=== PATIENT | male | born 1955 | race Caucasian/White ===

== ENCOUNTER 2021-12-15 23:24 | Inpatient (IN) | payer MEDICARE, SELFPAY ==
--- NOTE | 2021-12-15 23:28 | XRR_ITS ---
PROCEDURE INFORMATION: Exam: XR Chest Exam date and time: 12/15/2021 11:43 PM Age: 66 years old Clinical indication: Sternal or substernal pain; Additional info: Cp TECHNIQUE: Imaging protocol: XR of the chest. Views: 1 view. COMPARISON: No relevant prior studies available. FINDINGS: Lungs: Bibasilar atelectasis versus minimal infiltrate. Pleural spaces: Unremarkable. No pleural effusion. No pneumothorax. Heart/Mediastinum: Mild cardiomegaly. Bones/joints: Unremarkable. XR/XR chest 1V portable [id number] IMPRESSION: 1. Mild cardiomegaly. 2. Bibasilar atelectasis versus minimal infiltrate.
--- NOTE | 2021-12-15 23:28 | ECG_ITS ---
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 Measurements Intervals [place] Rate: 84 P: 37 ND: 181 QRS: -1 QRSD: 102 T: 21 QT: 365 QTc: 434 Interpretive Statements SINUS RHYTHM MODERATE VOLTAGE CRITERIA FOR LVH, CONSIDER NORMAL VARIANT [MEETS CRITERIA IN ONE OF: R(aVL), S(V1), R(V5), R(V5/V6)+S(V1)] NONSPECIFIC T-WAVE ABNORMALITY No previous ECG available for comparison Electronically Signed On 12-16-2021 22:49:02 CDT by Juventino Lowery M.D. [id number]
--- NOTE | 2021-12-15 23:35 | CTR_ITS ---
PROCEDURE INFORMATION: Exam: CTA Chest With Contrast Exam date and time: 12/16/2021 12:45 AM Age: 66 years old Clinical indication: Abdominal pain; Sternal or substernal pain; Patient HX: C/O sudden onset substernal/epigastric pain; Additional info: Cp TECHNIQUE: Imaging protocol: Computed tomographic angiography of the chest with contrast. 3D rendering (Not supervised by radiologist): MIP and/or 3D reconstructed images were created by the technologist. Radiation optimization: All CT scans at this facility use at least one of these dose optimization techniques: automated exposure control; mA and/or kV adjustment per patient size (includes targeted exams where dose is matched to clinical indication); or iterative reconstruction. Contrast material: OMNI 350; Contrast volume: 95 ml; Contrast route: INTRAVENOUS (IV); COMPARISON: CR (CHEST, ) 12/15/2021 11:43 PM RADIATION DOSE METRICS: Total DLP (mGy-cm): 1646.57 FINDINGS: Pulmonary arteries: Normal. No pulmonary emboli. Aorta: Unremarkable. No aortic aneurysm. No aortic dissection. Lungs: Emphysematous changes. Bilateral dependent atelectasis. Pleural spaces: Unremarkable. No pneumothorax. No pleural effusion. Heart: Cardiomegaly. Coronary artery atherosclerotic calcifications. Lymph nodes: Scattered prominent mediastinal lymph nodes measuring up to 10 mm, nonspecific. Bones/joints: T8 vertebral body which shaped compression fracture without retropulsion of bony fragments, age indeterminate. Soft tissues: Unremarkable. PROCEDURE INFORMATION: Exam: CT Abdomen And Pelvis With Contrast Exam date and time: 12/16/2021 12:45 AM Age: 66 years old Clinical indication: Abdominal pain; Sternal or substernal pain; Patient HX: C/O sudden onset substernal/epigastric pain; Additional info: Cp TECHNIQUE: Imaging protocol: Computed tomography of the abdomen and pelvis with contrast. Radiation optimization: All CT scans at this facility use at least one of these dose optimization techniques: automated exposure control; mA and/or kV adjustment per patient size (includes targeted exams where dose is matched to clinical indication); or iterative reconstruction. Contrast material: OMNI 350; Contrast volume: 95 ml; Contrast route: INTRAVENOUS (IV); COMPARISON: CR (CHEST, ) 12/15/2021 11:43 PM RADIATION DOSE METRICS: Total DLP (mGy-cm): 1646.57 FINDINGS: Liver: Normal. No mass. Gallbladder and bile ducts: Normal. No calcified stones. No ductal dilation. Pancreas: Edema about the pancreatic head and duodenum suggestive of pancreatitis and/or duodenitis. Spleen: Normal. No splenomegaly. Adrenal glands: Normal. No mass. Kidneys and ureters: Bilateral renal cysts, negative for follow-up advised. Stomach and bowel: See Pancreas finding. Appendix: No evidence of appendicitis. Intraperitoneal space: Unremarkable. No free air. No significant fluid collection. Arteries: Unremarkable. No abdominal aortic aneurysm. Lymph nodes: Unremarkable. No enlarged lymph nodes. Urinary bladder: Unremarkable as visualized. Reproductive: Unremarkable as visualized. Bones/joints: Unremarkable. No acute fracture. Soft tissues: Left inguinal hernia containing omentum without bowel. CT/CT angio chest w abd pel w con IMPRESSION: 1. Scattered prominent mediastinal lymph nodes measuring up to 10 mm, nonspecific. 2. Cardiomegaly. 3. Emphysematous changes. 4. Bilateral dependent atelectasis. 5. T8 vertebral body which shaped compression fracture without retropulsion of bony fragments, age indeterminate. 6. Coronary artery atherosclerotic calcifications. IMPRESSION: 1. Edema about the pancreatic head and duodenum suggestive of pancreatitis and/or duodenitis. 2. Left inguinal hernia containing omentum without bowel. 3. Bilateral renal cysts, negative for follow-up advised.
--- NOTE | 2021-12-15 23:37 | ED_ITS ---
HPI - Chest Pain General: Chief Complaint: Chest Pain Stated Complaint: CP Time Seen by Provider: 12/15/21 23:29 Source: patient Mode of arrival: ambulatory Limitations: no limitations History of Present Illness: 66-year-old male who states that roughly 3 hours ago he started having severe sharp lower chest pain and abdominal pain. States he got of severe sharp pain in his upper abdomen that radiates to his chest and his back. States pain is currently an 8 out of 10. Denies any shortness of breath no nausea. Denies any history of heart disease or stomach issues. He has not a heavy drinker. Denies ever having pain like this in the past does have a family history of heart disease. Denies any diaphoresis he is currently in pain grabbing his upper abdomen Associated symptoms: Reports abdominal pain and nausea; Deny dyspnea or fever(s) Review of Systems Const: Denies: fever(s), chills, body aches or change in appetite Eyes: Denies: blurry vision or eye discomfort ENMT: Denies: throat pain or dental pain Card: Reports: chest pain Resp: Denies: dyspnea GI: Reports: abdominal pain and nausea : Denies: dysuria Musc: Denies: neck pain or back pain Skin/Breast: Denies: rash Neuro: Denies: headache(s) Psych: Denies: depression Jatinder/Lymph: Denies: easy bruising All/Imm: Denies: urticaria PFSH ED PFSH: Medical History (Updated 12/16/21 @ 01:49 by Josh Shen MD) No pertinent past medical history Family History Father CAD (coronary artery disease) Social History (Updated 12/15/21 @ 23:38 by Josh Shen MD) Smoking and tobacco status: never smoked Physical Exam Const: COMMON NORMALS: patient oriented x3 GENERAL APPEARANCE: in distress HENMT: COMMON NORMALS: normocephalic and atraumatic HEAD & SCALP: norm ocephalic and atraumatic Eye: COMMON NORMALS: Equal, round and reactive pupils present and EOMs intact bilaterally PUPIL: Yes Equal, round and reactive pupils present Neck/C-Spine: COMMON NORMALS: full ROM and supple Chest: COMMONS NORMALS: normal inspection of the chest and normal palpation of entire chest wall Resp: COMMON NORMALS: normal respiratory effort, No retractions, No use of accessory muscles and clear to auscultation bilaterally AUSCULTATION: clear to auscultation bilaterally Cardio: COMMON NORMALS: regular rate, regular rhythm and No murmurs present (Cardio) RATE: regular rate RHYTHM: regular rhythm GI: COMMON NORMALS: Normal to inspection, nondistended, normoactive bowel sounds present, Soft to palpation and no masses PALPATION: Yes Soft to palpation OTHER: epigastric tenderness Extremity: COMMON NORMALS: normal to inspection and full ROM Neuro: COMMON NORMALS: patient oriented x3, moves all extremities and no focal motor deficits Psych: COMMON NORMALS: mental status grossly normal, Normal thought process present and cooperative THOUGHT PROCESS: Normal thought process present Skin: COMMON NORMALS: no rashes or lesions noted and no wounds GENERAL SKIN EXAM: no rashes or lesions noted Course Vital Signs: Vital signs: Vital Signs Pulse Rate 83 12/16/21 01:19 Respiratory Rate 17 12/16/21 01:19 Blood Pressure 142/83 12/16/21 01:19 Pulse Oximetry 96 12/16/21 01:19 MDM - Chest Pain Medical Decision Making Patient presents here with abdominal pain is found to have pancreatitis CT scan otherwise normal liver enzymes are normal spoke to hospitalist will admit. Lab Data : 12/15/21 23:55 12/16/21 00:30 Radiology Impressions Chest X-Ray 12/15/21 23:28 IMPRESSION: 1. Mild cardiomegaly. 2. Bibasilar atelectasis versus minimal infiltrate. Chest/Abdomen/Pelvis CT 12/15/21 23:35 IMPRESSION: 1. Scattered prominent mediastinal lymph nodes measuring up to 10 mm, nonspecific. 2. Cardiomegaly. 3. Emphysematous changes. 4. Bilateral dependent atelectasis. 5. T8 vertebral body which shaped compression fracture without retropulsion of bony fragments, age indeterminate. 6. Coronary artery atherosclerotic calcifications. IMPRESSION: 1. Edema about the pancreatic head and duodenum suggestive of pancreatitis and/or duodenitis. 2. Left inguinal hernia containing omentum without bowel. 3. Bilateral renal cysts, negative for follow-up advised. Laboratory Results WBC 13.4 10^3/uL (4.0-10.0) H 12/15/21 23:55 RBC 5.19 10^6/uL (4.1-5.3) 12/15/21 23:55 Hgb 16.3 g/dL (11.7-16.6) 12/15/21 23:55 Hct 49.5 % (42.0-52.0) 12/15/21 23:55 MCV 95.4 fl (80-94) H 12/15/21 23:55 MCH 31.4 pg (28.0-34.0) 12/15/21 23:55 MCHC 32.9 g/dL (30.0-36.0) 12/15/21 23: RDW 13.0 % (12.1-15.1) 12/15/21 23: Plt Count 158 10^3/cmm (130-400) 12/15/21 23: MPV 10.3 fL (7.4-10.4) 12/15/21 23:55 Neut % (Auto) 84.5 % 12/15/21 23: Lymph % (Auto) 6.0 % 12/15/21 23:55 Buchanan % (Auto) 9.0 % 12/15/21 23: Eos % (Auto) 0.0 % 12/15/21 23: Baso % (Auto) 0.1 % 12/15/21 23: Neut # (Auto) 11.33 10^3/uL (1.8-7.7) H 12/15/21 23:55 Lymph # (Auto) 0.8 10^3/uL (0.8-4.8) 12/15/21 23:55 [place]anan # (Auto) 1.2 10^3/uL (0.2-0.9) H 12/15/21 23:55 Eos # (Auto) 0.0 10^3/uL (0.0-0.8) 12/15/21 23: Baso # (Auto) 0.0 10^3/uL (0.0-0.1) 12/15/21 23:55 Nucleated RBC % (auto) 0 % 12/15/21 23: Nucleated RBCs # 0.0 /100WBC 12/15/21 23: PT 14.20 SECONDS (12.1-14.9) 12/15/21 23:55 INR 1.07 (0.8-1.2) 12/15/21 23:55 Sodium 136 mmol/L (136-145) 12/16/21 00:30 Potassium 3.9 mmol/L (3.5-5.1) 12/16/21 00:30 Chloride 101 mmol/L (98-107) 12/16/21 00:30 Carbon Dioxide 23 mmol/L (22-29) 12/16/21 00:30 Anion Gap 15.9 (5-19) 12/16/21 00:30 BUN 19 mg/dL (8-23) 12/16/21 00:30 Creatinine 0.7 mg/dL (0.7-1.2) 12/16/21 00:30 GFR Calculation 113.2 mL/min (90-130) 12/16/21 00:30 Glucose 160 mg/dL (65-115) H 12/16/21 00:30 Calculated Osmolality 288 mOsm/kg (285-295) 12/16/21 00:30 Calcium 8.9 mg/dL (8.5-10.5) 12/16/21 00:30 Total Bilirubin 2.0 mg/dL (0.15-1.2) H 12/16/21 00:30 AST 246 U/L (0-40) H 12/16/21 00:30 ALT 277 U/L (0-41) H 12/16/21 00:30 Alkaline Phosphatase 87 IU/L (40-130) 12/16/21 00:30 Troponin T Baseline 11 ng/L (0-15) 12/16/21 00:30 Total Protein 7.0 g/dL (6.6-8.7) 12/16/21 00:30 Albumin 4.1 g/dL (3.5-5.2) 12/16/21 00:30 Globulin 2.9 g/dL (1.3-4.6) 12/16/21 00:30 Lipase Cancelled 12/15/21 23:55 EKG Data EKG 1: I personally reviewed and interpreted this EKG as follows: EKG interpretation date: 12/15/21 EKG interpretation time: 23:34 Interpretation: nsr hr [address] or t wave abnormalities qrs 102 qtc 406 Discharge Plan Discharge Patient Disposition: Admitted As Inpatient Clinical Impression: Acute pancreatitis Coding Level of Care Code ED Resin Filterer for Chg Fwd Exam Comprehensive
[2021-12-16] VITALS (16 sets, daily range): BP systolic 123–147; BP diastolic 72–94; PULSE 65–93; RESP 15–28; TEMP 36.7–38.1; O2SAT 91–98; BMI 31.5; BMI 27.6
[2021-12-16 00:03] LABS: Basophils % 0.1 %; Hematocrit 49.5 % (42.0-52.0); Hemoglobin 16.3 g/dL (11.7-16.6); Lymphocytes # 0.8 10^3/uL (0.8-4.8); Mean Corpuscular HGB Conc 32.9 g/dL (30.0-36.0); Mean Corpuscular Hemoglobin 31.4 pg (28.0-34.0); Mean Corpuscular Volume 95.4 fl (80-94); Mean Platelet Volume 10.3 fL (7.4-10.4); Monocytes # 1.2 10^3/uL (0.2-0.9); Neutrophils # 11.33 10^3/uL (1.8-7.7); Neutrophils % 84.5 %; Nucleated Red Blood Cells % 0 %; Platelet Count 158 10^3/cmm (130-400); Red Blood Count 5.19 10^6/uL (4.1-5.3); White Blood Count 13.4 10^3/uL (4.0-10.0)
[2021-12-16] MEDS: ondansetron 2 mg/ML SDV 2 mL 4 MG IVP (00:10)
[2021-12-16] MEDS: HYDROmorphone 1 mg/mL INJ 1 mL IVP (00:12)
[2021-12-16 00:13] LABS: INR 1.07 (0.8-1.2)
--- NOTE | 2021-12-16 00:20 | PC.NURSE ---
color television console monitor on patient.
--- NOTE | 2021-12-16 00:44 | PC.NURSE ---
Patient states that pain medication helped, he states he has no pain at this time.
[2021-12-16] MEDS: iohexol 350 mg/mL 100 mL Btl IV (00:45)
[2021-12-16 01:01] LABS: Alanine Aminotransferase 277 U/L (0-41); Albumin Level 4.1 g/dL (3.5-5.2); Alkaline Phosphatase 87 IU/L (40-130); Anion Gap 15.9 (5-19); Aspartate Amino Transferase 246 U/L (0-40); Blood Urea Nitrogen 19 mg/dL (8-23); Calcium 8.9 mg/dL (8.5-10.5); Carbon Dioxide 23 mmol/L (22-29); Chloride 101 mmol/L (98-107); Globulin 2.9 g/dL (1.3-4.6); Glomerular Filtration Rate 113.2 mL/min (90-130); Glucose 160 mg/dL (65-115); Osmolality Calculated 288 mOsm/kg (285-295); Potassium 3.9 mmol/L (3.5-5.1); Sodium 136 mmol/L (136-145)
[2021-12-16 01:02] LABS: Troponin(5th) Baseline 11 ng/L (0-15)
--- NOTE | 2021-12-16 01:28 | ECG_ITS ---
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 Measurements Intervals [place] Rate: 83 P: 44 SC: 178 QRS: -3 QRSD: 99 T: 29 QT: 361 QTc: 426 Interpretive Statements SINUS RHYTHM NONSPECIFIC T-WAVE ABNORMALITY No previous ECG available for comparison Electronically Signed On 12-16-2021 23:04:57 CDT by Juventino Lowery M.D. [id number]
[2021-12-16] MEDS: sodium chloride 0.9% 1,000 ML 999 ML IV (02:06)
--- NOTE | 2021-12-16 02:10 | PM.HP ---
Providers/Chief Complaint Chief Complaint: CP History of Present Illness The patient is a [age]-year-old male who presents to [place] abdominal pain which started proximally 5 PM on December 15, 2021. He states it was of sudden onset in a bandlike area in his upper abdomen radiating to his back. He describes the pain as sharp. Since the time of onset's been constant. As worst rated 10 out of 10. Currently rates run out of 10 after receiving analgesia. He states he took aspirin at home which did not improve the pain. He states he has been exhibiting fever, rigors, nausea, vomiting. He denies frequent NSAID use. He states that his last bowel movement was on the morning of December 15, 2021. He denies melena, hematochezia, diarrhea, stat area. The patient indicates that he drinks 2 beers daily and indicates that it is never more than this. He presents for further evaluation Review of Systems General: Reports: 10 or more systems reviewed and unremarkable except in HPI and below PFSH Acute PFSH: Medical History No pertinent past medical history Family History Father CAD (coronary artery disease) Social History Smoking and tobacco status: never smoked Vitals/I&O/Wt Last Vital Signs Pulse 87 12/16/21 02:07 Resp 19 H 12/16/21 02:07 BP 136/82 12/16/21 02:07 Pulse Ox 93 12/16/21 02:07 Weight last 48 hrs Weight 99.79 kg Physical Exam Narrative: General: -Alert -No acute distress -No dyspnea -No tachypnea Head: -Atraumatic -Normocephalic Eyes: -Pupils equally round and reactive to light and accommodation -Extraocular muscles intact Neurological: -Cranial nerves II-XII intact Neck: -No jugular venous distention -No thyromegaly -No cervical lymphadenopathy Heart: -Regular rate -Regular rhythm -No murmurs -No gallops -No rubs Lungs: -No wheeze -No rhonchi -No rales ? Abdomen: -Normal bowel sounds in all four quadrants -No rebound -No guarding -No tenderness Extremities: -2/4 pulse in all four extremities -No clubbing -No cyanosis -No edema -No calf tenderness present bilaterally -Negative Karoline?s sign bilaterally Musculoskeletal: -5/5 bilateral upper extremity strength -5/5 bilateral lower extremity strength -Sensorium of bilateral upper extremities are equal and intact -Sensorium of bilateral lower extremities are equal and intact ? Additional Details / Additional Findings / Exceptions / Miscellaneous: Data : 12/15/21 23:55 12/16/21 00:30 A&P Assessment and plan (1) Acute pancreatitis: Status: Acute Plan Acute pancreatitis, likely alcohol induced however the patient denies abusing alcohol beyond 2 beers daily. Will monitor lipase level intermittently. Fasting lipid panel pending. Nothing by mouth. IV normal saline 100 ML's per hour Query alcohol abuse, likely at the very least alcohol overuse. Seizure precautions. The patient denies signs/symptoms of withdrawal, we will initiate [place] protocol/when necessary Ativan Mediastinal lymphadenopathy. Patient will require CT chest with IV contrast March 07, 2022 Transaminitis, likely alcohol induced. Will monitor LFTs periodically with CMP along with PT/INR. If we see no improvement, will need to check right upper quadrant ultrasound and perhaps hepatitis panel Macrocytosis. Check TSH, free T4, B12, folate level COPD Coronary artery disease GERD. Protonix 40 Mill grams IV twice a day Obesity. The patient becomes regarding lifestyle modification DVT Proflex is. Bilateral SCD Attestations Medical Necessity Statement*: Anticipate length of stay greater than 2 midnights for treatment of his pancreatitis Coding Level of Care Code Acute Neonatal Intensive Care Unit Nurse for Cb Dowd Diagnoses Acute pancreatitis K85.90
[2021-12-16 02:24] LABS: Troponin 5 2HR 11.61 ng/L (0-15)
[2021-12-16 02:26] LABS: Lipase 4798 U/L (13-60)
[2021-12-16] MEDS: pantoprazole 40 mg SDV IVP ×2 (03:11→14:20)
[2021-12-16] MEDS: sodium chloride 0.9% 1,000 ML 100 ML IV ×3 (03:30→22:58)
--- NOTE | 2021-12-16 05:28 | ECG_ITS ---
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 Measurements Intervals [place] Rate: 74 P: 24 [place]: 180 QRS: -8 QRSD: 96 T: 12 QT: 378 QTc: 422 Interpretive Statements SINUS RHYTHM MINIMAL VOLTAGE CRITERIA FOR LVH, CONSIDER NORMAL VARIANT [MEETS CRITERIA IN ONE OF: R(aVL), S(V1), R(V5), R(V5/V6)+S(V1)] NONSPECIFIC T-WAVE ABNORMALITY Compared to ECG 12/16/2021 01:30:47 No significant changes Electronically Signed On 12-16-2021 23:06:05 CDT by Juventino Lowery M.D. [id number]
[2021-12-16 07:05] LABS: Troponin 5 6HR 11.71 ng/L (0-15)
[2021-12-16 07:17] LABS: Troponin 5 6HR Delta 0.71 ng/L (0-12)
[2021-12-16 07:40] LABS: Chol HDL Ratio 2.89 mg/dL (1.0-5.00); Cholesterol 104 mg/dL (0-200); HDL Cholesterol 36 mg/dL (60-100); LDL Cholesterol Calculated 58 mg/dL (50-129); LDL HDL Ratio 1.61 RATIO (0.00-3.22); Triglycerides 50 mg/dL (0-150)
[2021-12-16 07:56] LABS: Folate Level 15.9 ng/mL (4.5-32.2)
[2021-12-16 08:06] LABS: Free T4 Free Thyroxine 1.17 ng/dL (0.82-1.77); Thyroid Stimulating Hormone 0.31 uIU/mL (0.27-4.20)
[2021-12-16 09:05] LABS: Vitamin B12 624 pg/mL (232-1245)
--- NOTE | 2021-12-16 12:13 | P.MISC_ITS ---
Miscellaneous Note Purpose of Documentation: Progress note Note: Patient seen this morning. Epigastric pain has improved, able to tolerate little sips of water. I will advance his diet to clear liquid and see how he does. Lipase 4798 on admission. Patient states he does drink alcohol 1- 2 beers a day but never binges. Cage: 0 Rest of management same as H&P document.
[2021-12-17] MEDS: pantoprazole 40 mg SDV IVP (03:15)
[2021-12-17 04:52] VITALS: BP 126/72; PULSE 67; RESP 18; TEMP 36.7; O2SAT 95
[2021-12-17 05:21] VITALS: PULSE 60
[2021-12-17 06:38] LABS: INR 1.12 (0.8-1.2)
[2021-12-17 06:43] LABS: Alanine Aminotransferase 212 U/L (0-41); Albumin Level 3.6 g/dL (3.5-5.2); Alkaline Phosphatase 102 IU/L (40-130); Anion Gap 9.4 (5-19); Aspartate Amino Transferase 82 U/L (0-40); Blood Urea Nitrogen 12 mg/dL (8-23); Calcium 8.7 mg/dL (8.5-10.5); Carbon Dioxide 26 mmol/L (22-29); Chloride 107 mmol/L (98-107); Globulin 2.2 g/dL (1.3-4.6); Glucose 105 mg/dL (65-115); Osmolality Calculated 286 mOsm/kg (285-295); Potassium 4.4 mmol/L (3.5-5.1); Sodium 138 mmol/L (136-145); Total Bilirubin 1.7 mg/dL (0.15-1.2); Total Protein 5.8 g/dL (6.6-8.7)
[2021-12-17 07:01] LABS: Lipase 1008 U/L (13-60)
[2021-12-17 08:00] VITALS: BP 150/79; PULSE 66; RESP 18; TEMP 37; O2SAT 95
[2021-12-17] MEDS: sodium chloride 0.9% 1,000 ML 100 ML IV (08:10)
[2021-12-17 12:00] VITALS: BP 128/68; PULSE 67; RESP 18; TEMP 36.6; O2SAT 96
--- NOTE | 2021-12-17 14:23 | P.DS_ITS ---
Discharge Providers Date of Admission: 12/16/21 02:06 Date of Discharge: December 17, 2021 Attending Provider at Admission: Cb Laird DO Attending Provider at Discharge: Layne Cooper MD Diagnoses at Discharge Discharge Diagnosis (1) Acute pancreatitis: Status: Acute Reason for Visit Reason for Visit: CP Brief History: HPI by Dr. Laird The patient is a [age]-year-old male who presents to [place] abdominal pain which started proximally 5 PM on December 15, 2021.? He states it was of sudden onset in a bandlike area in his upper abdomen radiating to his back.? He describes the pain as sharp.? Since the time of onset's been constant.? As worst rated 10 out of 10.? Currently rates run out of 10 after receiving analgesia.? He states he took aspirin at home which did not improve the pain.? He states he has been exhibiting fever, rigors, nausea, vomiting.? He denies frequent NSAID use.? He states that his last bowel movement was on the morning of December 15, 2021.? He denies melena, hematochezia, diarrhea, stat area.? The patient indicates that he drinks 2 beers daily and indicates that it is never more than this.? He presents for further evaluation Hospital Course Hospital Course Patient was admitted for acute pancreatitis likely biliary pancreatitis. No evidence of gallstones on CT scan. He does drink alcohol but occasionally. He was given IV fluids and improved. Was able to tolerate a diet prior to discharge. Patient bilirubin was 2 and had a slight transaminitis which was likely alcohol induced versus pancreatitis. He will need to follow-up with his primary care doctor. Physical Exam Narrative: General: Alert oriented x3, patient seen sitting up in chair HEENT: Normocephalic, atraumatic, EOMI, breathing normally Cardio: Regular rate rhythm, normal S1-S2, no murmurs Respiratory: Good bilateral air entry, no wheezes no rhonchi appreciated GI: Abdomen soft, nontender, nondistended, bowel sounds +, no epigastric pain nontender to palpation. Behavior: Appropriate and cooperative Extremities: no edema, no cyanosis Discharge Data Studies Completed and Pending Completed Studies During Hospitalization Category Date Time Status CT angio chest w abd pel w con Urgent Cat Scan 12/15/21 23:35 Completed XR chest 1V portable [id number] Stat Exams 12/15/21 23:28 Completed Radiology Impressions Chest X-Ray 12/15/21 23:28 IMPRESSION: 1. Mild cardiomegaly. 2. Bibasilar atelectasis versus minimal infiltrate. Chest/Abdomen/Pelvis CT 12/15/21 23:35 IMPRESSION: 1. Scattered prominent mediastinal lymph nodes measuring up to 10 mm, nonspecific. 2. Cardiomegaly. 3. Emphysematous changes. 4. Bilateral dependent atelectasis. 5. T8 vertebral body which shaped compression fracture without retropulsion of bony fragments, age indeterminate. 6. Coronary artery atherosclerotic calcifications. IMPRESSION: 1. Edema about the pancreatic head and duodenum suggestive of pancreatitis and/or duodenitis. 2. Left inguinal hernia containing omentum without bowel. 3. Bilateral renal cysts, negative for follow-up advised. Laboratory Results WBC 13.4 10^3/uL (4.0-10.0) H 12/15/21 23:55 RBC 5.19 10^6/uL (4.1-5.3) 12/15/21 23:55 Hgb 16.3 g/dL (11.7-16.6) 12/15/21 23:55 Hct 49.5 % (42.0-52.0) 12/15/21 23:55 MCV 95.4 fl (80-94) H 12/15/21 23:55 MCH 31.4 pg (28.0-34.0) 12/15/21 23:55 MCHC 32.9 g/dL (30.0-36.0) 12/15/21 23:55 RDW 13.0 % (12.1-15.1) 12/15/21 23:55 Plt Count 158 10^3/cmm (130-400) 12/15/21 23:55 MPV 10.3 fL (7.4-10.4) 12/15/21 23:55 Neut % (Auto) 84.5 % 12/15/21 23:55 Lymph % (Auto) 6.0 % 12/15/21 23:55 [place] % (Auto) 9.0 % 12/15/21 23:55 Eos % (Auto) 0.0 % 12/15/21 23:55 Baso % (Auto) 0.1 % 12/15/21 23:55 Neut # (Auto) 11.33 10^3/uL (1.8-7.7) H 12/15/21 23:55 Lymph # (Auto) 0.8 10^3/uL (0.8-4.8) 12/15/21 23:55 [place] # (Auto) 1.2 10^3/uL (0.2-0.9) H 12/15/21 23:55 Eos # (Auto) 0.0 10^3/uL (0.0-0.8) 12/15/21 23:55 Baso # (Auto) 0.0 10^3/uL (0.0-0.1) 12/15/21 23:55 Nucleated RBC % (auto) 0 % 12/15/21 23:55 Nucleated RBCs # 0.0 /100WBC 12/15/21 23:55 PT 14.70 SECONDS (12.1-14.9) 12/17/21 06:05 INR 1.12 (0.8-1.2) 12/17/21 06:05 Sodium 138 mmol/L (136-145) 12/17/21 06:05 Potassium 4.4 mmol/L (3.5-5.1) 12/17/21 06:05 Chloride 107 mmol/L (98-107) 12/17/21 06:05 Carbon Dioxide 26 mmol/L (22-29) 12/17/21 06:05 Anion Gap 9.4 (5-19) 12/17/21 06:05 BUN 12 mg/dL (8-23) 12/17/21 06:05 Creatinine 0.8 mg/dL (0.7-1.2) 12/17/21 06:05 GFR Calculation 97.0 mL/min (90-130) 12/17/21 06:05 Glucose 105 mg/dL (65-115) 12/17/21 06:05 Calculated Osmolality 286 mOsm/kg (285-295) 12/17/21 06:05 Calcium 8.7 mg/dL (8.5-10.5) 12/17/21 06:05 Total Bilirubin 1.7 mg/dL (0.15-1.2) H 12/17/21 06:05 AST 82 U/L (0-40) H 12/17/21 06:05 ALT 212 U/L (0-41) H 12/17/21 06:05 Alkaline Phosphatase 102 IU/L (40-130) 12/17/21 06:05 Troponin T Baseline 11 ng/L (0-15) 12/16/21 00:30 Troponin T 120 Minute 11.61 ng/L (0-15) 12/16/21 01:50 Delta Troponin T Not Reportable 12/16/21 01:50 Troponin T Hi Sens 6Hr 11.71 ng/L (0-15) 12/16/21 05:50 Troponin T Hi Sens 6Hr Delta 0.71 ng/L (0-12) 12/16/21 05:50 Total Protein 5.8 g/dL (6.6-8.7) L 12/17/21 06:05 Albumin 3.6 g/dL (3.5-5.2) 12/17/21 06:05 Globulin 2.2 g/dL (1.3-4.6) 12/17/21 06:05 Triglycerides 50 mg/dL (0-150) 12/16/21 05:50 Cholesterol 104 mg/dL (0-200) 12/16/21 05:50 LDL Cholesterol, Calc 58 mg/dL (50-129) 12/16/21 05:50 HDL Cholesterol 36 mg/dL (60-100) L 12/16/21 05:50 LDL/HDL Ratio 1.61 RATIO (0.00-3.22) 12/16/21 05:50 Cholesterol/HDL Ratio 2.89 mg/dL (1.0-5.00) 12/16/21 05:50 Lipase 1008 U/L (13-60) H 12/17/21 06:05 Vitamin B12 624 pg/mL (232-1245) 12/16/21 05:50 Folate 15.9 ng/mL (4.5-32.2) 12/16/21 06:42 TSH 0.31 uIU/mL (0.27-4.20) 12/16/21 05:50 Free T4 1.17 ng/dL (0.82-1.77) 12/16/21 05:50 Vitals Last Vital Signs Temp 97.8 F 12/17/21 12:00 Pulse 67 12/17/21 12:00 Resp 18 12/17/21 12:00 BP 128/68 12/17/21 12:00 Pulse Ox 96 12/17/21 12:00 Discharge Plan Discharge Patient Disposition: Home Condition: Stable Prescriptions: Continued aspirin 81 mg Tablet,Delayed Release (Dr/Ec) 81 mg PO QAM 0RF Vitamin C 500 mg Tablet 500 mg PO QAM 0RF omeprazole 20 mg capsule,delayed release(DR/EC) 20 mg PO QAM 0RF magnesium oxide 400 mg magnesium Tablet 400 mg PO QAM 0RF Vitamin D3 1 cap PO QAM 0RF Held EC-Naproxen 500 mg tablet,delayed release (DR/EC) 500 mg PO DAILY PRN (Reason: Pain) 0RF Hold Instructions: see pcp Discharge Orders: Discharge Order (Routine); Ordered 12/17/21 Ordered By: Layne Jones Ambulatory Orders: Comprehensive Metabolic Panel (Routine) Timeframe: 1 Day Facility: [facility] - Location: Lab - Main Lab Ordered By: Layne Cooper Lipase (Routine) Timeframe: 1 Week Facility: [facility] - Location: Lab - Main Lab Ordered By: Layne Cooper Referrals: Rosmery Villavicencio [Other] - 12/23/21 3:15 pm Discharge Diet: Advance as tolerated and GI Soft Discharge Activity: Increase activity as tolerated Patient Instructions: Pancreatitis (GEN), GI (Gastrointestinal) Soft Diet (GEN), Opioid Safety Discharge Attestations Time Spent in Discharge Care*: less than 30 min Quality Metrics Clinical Quality Measures [ No reported AMI, CVA or VTE this stay] Coding Level of Care Code Acute Chg FW DC note Diagnoses Acute pancreatitis K85.90
[2021-12-17 15:48] VITALS: BP 128/68; PULSE 67; RESP 18; TEMP 36.6; O2SAT 96
--- NOTE | 2021-12-27 14:37 | PC.SOCIAL ---
Addendum entered by Corinne Dao, RN 12/27/21 15:23: Masha returned call from Dr Villavicencio office and a lipase was done on 12/23/21 with the other labs ordered. Original Note: Called patient and spoke to and patient both. Discussed that Dr Cooper would like him to See Dr Jackson spine surgeon for T8 compression fx. Pt and are okay to see Dr Jackson and if he cant get him in soon okay with Dr Breaux at [facility]. Patient prefers around 9am. Called Dr Jackson office and they can see him 01/02/2022 at 8:30am. Called patient to update and he asked for time to be later that day or another day. Provided the number for office and encouraged him to leave message if no answer to request a date and time that might better fit his schedule. Sent dc information to Dr Jackson office per request and indicated on face sheet pt will be calling to change appt date and/ or time. Called Dr Rosmery Villavicencio office to check and see if labs were drawn including lipase and had to leave a message. Per pt he thinks all the labs were drawn since he was called by PCP office this week and told labs look good. Left message for PCP nurse requesting return call to verify.
== END 2021-12-17 15:49 | disposition home or self-care (01) | DRG 440 ==
LOC: ER 12-16 02:24 → MEDSURG 12-16 02:27
PROVIDERS: Admitting Provider Internal Medicine; Emergency Provider Emergency Medicine; Visit Provider Internal Medicine
DX: K85.10 Biliary acute pancreatitis without necrosis or infection (principal); Z82.49 Family history of ischemic heart disease and other diseases of the circulatory system; R59.0 Localized enlarged lymph nodes; J44.9 Chronic obstructive pulmonary disease, unspecified; I25.10 Atherosclerotic heart disease of native coronary artery without angina pectoris; K21.9 Gastro-esophageal reflux disease without esophagitis; E66.9 Obesity, unspecified; Z68.27 Body mass index [BMI] 27.0-27.9, adult; Z79.82 Long term (current) use of aspirin
CPT/HCPCS: 36415; 71045; 71275; 74177; 80053; 80061; 82607; 82746; 83690; 84439; 84443; 84484; 85025; 85610; 93005; 96361; 96374; 96375; 99285; C9113; J1170; J2405; J7030; Q9967

== ENCOUNTER → 2022-01-02 14:00 | Outpatient (BNVA) | payer MEDICARE, SELFPAY | PROVIDERS: PCP Family Medicine; Visit Provider Orthopaedic Surgery | DX: M48.54XS Collapsed vertebra, not elsewhere classified, thoracic region, sequela of fracture (principal); M40.204 Unspecified kyphosis, thoracic region; G95.29 Other cord compression | CPT/HCPCS: 72070; 99203 ==

== ENCOUNTER 2022-01-15 06:44 | Outpatient (CLI) | payer MEDICARE, SELFPAY ==
--- NOTE | 2022-01-15 | US_ITS ---
WS: [id number] RIGHT UPPER QUADRANT ULTRASOUND HISTORY: ACUTE PANCREATITIS COMPARISON: None available. Liver: 14.7 cm in length. Normal size liver with moderate coarse echotexture and increased attenuatio n. No mass identified or bile duct dilatation. Portal Vein: Normal hepatopetal flow with monophasic waveform. Gallbladder: Normally distended gallbladder with no stones or wall thickening. CBD: 0.4 cm Pancreas: Poorly visualized pancreas. No fluid or edema is noted around the pancreas. Right kidney: 12.8 cm in length. Normal size and echogenicity. No hydronephrosis or mass. Aorta and IVC: Unremarkable abdominal aorta and IVC. No ascites. US/US abdomen limited [id number] IMPRESSION: 1. Normal gallbladder. 2. Acute pancreatitis identified by CT is not evident by ultrasound but this e xamination is limited by body habitus. 3. Hepatic steatosis.
== END 2022-01-15 06:45 | disposition home or self-care (01) ==
LOC: RAD 06:46
PROVIDERS: PCP Family Medicine; Visit Provider Family Medicine
DX: K85.90 Acute pancreatitis without necrosis or infection, unspecified (principal); K76.0 Fatty (change of) liver, not elsewhere classified
CPT/HCPCS: 76705

== ENCOUNTER 2023-01-26 07:54 | Outpatient (CLI) | payer MEDICARE, SELFPAY ==
--- NOTE | 2023-01-26 08:14 | XR_ITS ---
WS: [id number] Lumbar spine, 3 views, 01/26/2023 Clinical Data: LUMBAGO W/sciatica, l SIDE Comparison: None. Findings: No compression fractures or subluxation is seen. There is degenerative disc narrowing at L5-S1. There are osteophytes of the vertebral bodies L3-L5. There is facet joint arthritis at L5-S1. There is a l evoscoliosis. The transverse processes and SI joints are normal. XR/XR lumbar spine 2-3V* [id number] Impression: 1. Degenerative disc narrowing at L5-S1. 2. Osteoarthritis at L3-L5, levoscoliosis and facet joint arthritis at L5-S1.
== END 2023-01-26 07:55 | disposition home or self-care (01) ==
LOC: RAD 08:01
PROVIDERS: PCP Family Medicine; Visit Provider Family Medicine
DX: M51.17 Intervertebral disc disorders with radiculopathy, lumbosacral region (principal); M47.817 Spondylosis without myelopathy or radiculopathy, lumbosacral region
CPT/HCPCS: 72100

== ENCOUNTER → 2024-09-23 11:00 | Outpatient (BNVA) | payer MEDICARE, SELFPAY | PROVIDERS: PCP Family Medicine; Visit Provider Family Medicine | DX: R03.0 Elevated blood-pressure reading, without diagnosis of hypertension (principal); E78.6 Lipoprotein deficiency; K21.9 Gastro-esophageal reflux disease without esophagitis; M54.42 Lumbago with sciatica, left side; G89.29 Other chronic pain; Z87.81 Personal history of (healed) traumatic fracture; K85.90 Acute pancreatitis without necrosis or infection, unspecified; R73.01 Impaired fasting glucose; M15.3 Secondary multiple arthritis; Z76.89 Persons encountering health services in other specified circumstances | CPT/HCPCS: 80053; 80061; 83036; 85025 ==

== ENCOUNTER 2025-02-07 17:17 | Inpatient (IN) | payer MEDICARE, SELFPAY ==
[2025-02-07 17:40] VITALS: BP 136/79; PULSE 72; TEMP 36.4; O2SAT 95
--- NOTE | 2025-02-07 18:44 | W.ED.ABDPA2 ---
HPI - Abdominal Pain General: Chief Complaint: Abdominal Pain Stated Complaint: abd and back pain, n/v/d/f Time Seen by Provider: 02/07/25 18:36 History of Present Illness: 69-year-old man with a history of pancreatitis in the past who presents emergency room with abdominal pain nausea and vomiting. Epigastric pain. Started yesterday. He says he only drinks a small amount just a few beers here and there. Presentation similar to previous episodes of pancreatitis. No fevers. No altered mental status. No dysuria. Related Data Home Medications ?Medication ?Instructions ?Recorded ?Confirmed Vitamin D3 1 cap PO QAM 12/16/21 02/07/25 ascorbic acid (vitamin C) 500 mg 500 mg PO QAM 12/16/21 02/07/25 tablet (Vitamin C) aspirin 81 mg tablet,delayed 81 mg PO QAM 12/16/21 02/07/25 release magnesium oxide 400 mg PO QAM 12/16/21 02/07/25 Previous Rx's ?Medication ?Instructions ?Recorded naproxen 500 mg tablet,delayed 500 mg PO BID PRN Pain #180 tabs 09/23/24 release (EC-Naproxen) omeprazole 20 mg capsule,delayed 20 mg PO QAM #90 caps 09/23/24 release Allergies Allergy/AdvReac Type Severity Reaction Status Date / Time No Known Allergies Allergy Verified 02/07/25 17:44 Review of Systems Narrative: Constitutional symptoms: Negative except as documented in HPI. Skin symptoms: Negative except as documented in HPI. Eye symptoms: Negative except as documented in HPI. ENMT symptoms: Negative except as documented in HPI. Respiratory symptoms: Negative except as documented in HPI. Cardiovascular symptoms: Negative except as documented in HPI. Gastrointestinal symptoms: Negative except as documented in HPI. Genitourinary symptoms: Negative except as documented in HPI. Musculoskeletal symptoms: Negative except as documented in HPI. Neurologic symptoms: Negative except as documented in HPI. Psychiatric symptoms: Negative except as documented in HPI. Endocrine symptoms: Negative except as documented in HPI. [facility] PFSH: Medical History Asymptomatic PVCs Varicose veins of both legs with edema Metabolic dysfunction-associated steatotic liver disease (MASLD) Fasting hyperglycemia Chronic thoracic back pain old T8 compressioin fx Cervical spondylarthritis Hx of compression fracture of spine T8 on imaging Low HDL (under 40) Elevated blood pressure reading without diagnosis of hypertension Osteoarthritis (arthritis due to wear and tear of joints) Chronic low back pain with left-sided sciatica Chronic GERD without esophagitis No pertinent past medical history Surgical History Hx of esophagogastroduodenoscopy 4.1.19 Hx of colonoscopy 5.7.18 at [facility] Family History Father CAD (coronary artery disease) Cancer Melanoma Mother No problems noted. Social History Smoking and tobacco/nicotine status: never used tobacco/nicotine Alcohol intake: current Alcohol intake frequency: 0-2 Drinks per Day Alcohol type: beer Substance/Drug Use: never Household members: spouse Marital status: Number of children: 3 Highest education level completed: High School Graduate Current occupational status: retired Previous occupational history: [employer] Physical Exam Narrative: EXAM NARRATIVE: General: Alert, no acute distress. Skin: Warm, dry. Head: Normocephalic, atraumatic. Neck: Supple, trachea midline. Eye: Extraocular movements are intact. Ears, nose, mouth and throat: Tacky oral mucosa Cardiovascular: Regular, Normal peripheral perfusion. Respiratory: Lungs are clear to auscultation, respirations are non-labored, breath sounds are equal, Symmetrical chest wall expansion. Gastrointestinal: Soft, moderate epigastric pain, Non distended Musculoskeletal: Normal ROM, no deformity. Neurological: Alert and oriented, No focal neurological deficit observed. Psychiatric: Cooperative, appropriate mood & affect. Course Vital Signs: Vital signs: Vital Signs Temperature 97.6 F 02/07/25 17:40 Pulse Rate 84 02/07/25 21:00 Respiratory Rate 16 02/07/25 21:00 Blood Pressure 109/61 02/07/25 21:00 Pulse Oximetry 96 02/07/25 21:00 Oxygen Delivery Me thod Nasal Cannula 02/07/25 21:00 Oxygen Flow Rate 2 02/07/25 21:00 MDM - Abdominal Pain Medical Decision Making Medical decision making: Differential diagnosis including but not limited to and based on the above HPI, review of systems and physical exam: In this patient with epigastric pain differential would include cholelithiasis or cholecystitis. Hepatitis. Diverticulitis. Constipation. UTI. colitis. small bowel obstruction. crohn's flare. pancreatitis. gastritis. peptic ulcer. also concern for acute cardiac event. Orders placed to evaluate differential diagnosis based on the above differential, HPI and physical exam Lab Review: Laboratory results were reviewed and interpreted by myself the emergency room physician. No leukocytosis. Mild hemophilia. Hemoglobin 17. No leukocytosis. Mild elevation in bilirubin at 1.8 and LFTs at around 130 each. He had similar laboratory presentations on presentation in 2021. There is some fluid around the gallbladder. No stones. I spoke with surgery and they feel that this is often present in edematous pancreatitis. Hospitalist can order a ultrasound if necessary and consult general surgery if needed. This was reviewed and interpreted by myself the emergency room physician. I also reviewed the radiology report. I reviewed the patient's medical record. Reexamination: Patient remained stable. No increased work of breathing. No altered mental status. No focal motor deficits. Patient said Dilaudid worked for a while but is requesting more. This is being ordered. I discussed findings. Consultation: I discussed radiologic findings with Dr. Tam on-call for general surgery. He feels this is appropriate for admission here and if he needs consulted he will be but currently no indication for general surgery consultation. Consultation I spoke with Dr. Connors who is on-call for the hospitalist service who agrees to admission. Assessment and plan: Pancreatitis Dehydration ?Multiple doses of Dilaudid. Zofran. 2 L normal saline bolus. -I discussed the patient with the hospitalist on-call who is admitting the patient. - Discussed findings and plan with patient. Answered any questions. - All laboratory values were reviewed and interpreted personally by myself, the ER physician - All imaging was reviewed and interpreted personally by myself, the ER physician. - Evaluation and treatment of this problem were appropriate in the emergency setting Lab Data 02/07/25 18:43 02/07/25 18:43 Labs/Radiology: Radiology Impressions Abdomen/Pelvis CT 02/07/25 19:19 IMPRESSION: 1. Exam demonstrates features of acute edematous pancreatitis. No evidence of pancreatic hemorrhage or necrosis. No biliary tree dilation. 2. There is gallbladder inflammatory change without biliary tree dilation or high-density stone. Findings could be passive in the setting of pancreatitis, but the pancreatic edema is not geographically contiguous with the gallbladder. Consider ultrasound to evaluate for underlying cholelithiasis and possible cholecystitis. 3. Fatty liver without enlargement. Spleen is normal in size. 4. Spinal stenosis at L3-L4 and L4-L5. Neural foraminal stenosis is noted bilaterally at L4-L5 and L5-S1. Correlate with symptoms of neurogenic claudication and/or radiculopathy. Laboratory Results WBC 9.83 10^3/uL (3.29-11.43) 02/07/25 18:43 RBC 5.45 10^6/uL (3.85-5.65) 02/07/25 18:43 Hgb 17.30 g/dL (11.27-16.99) H 02/07/25 18:43 Hct 52.3 % (37-53) 02/07/25 18:43 MCV 96.0 fl (82-101) 02/07/25 18:43 MCH 31.7 pg (27-33) 02/07/25 18:43 MCHC 33.1 g/dL (30-55) 02/07/25 18:43 RDW 12.8 % (12.1-15.1) 02/07/25 18:43 Plt Count 150 10^3/cmm (157-399) L 02/07/25 18:43 MPV 10.4 fL (7.4-10.4) 02/07/25 18:43 Neut % (Auto) 91.0 % 02/07/25 18:43 Lymph % (Auto) 7.1 % 02/07/25 18:43 [place] % (Auto) 1.2 % 02/07/25 18:43 Eos % (Auto) 0.2 % 02/07/25 18:43 Baso % (Auto) 0.3 % 02/07/25 18:43 Neut # (Auto) 8.94 10^3/uL (1.8-7.7) H 02/07/25 18:43 Lymph # (Auto) 0.7 10^3/uL (0.8-4.8) L 02/07/25 18:43 [place] # (Auto) 0.1 10^3/uL (0.2-0.9) L 02/07/25 18:43 Eos # (Auto) 0.0 10^3/uL (0.0-0.8) 02/07/25 18:43 Baso # (Auto) 0.0 10^3/uL (0.0-0.1) 02/07/25 18:43 Nucleated RBC % (auto) 0 % 02/07/25 18:43 Nucleated RBCs # 0.0 /100WBC 02/07/25 18:43 Sodium 137 mmol/L (136-145) 02/07/25 18:43 Potassium 4.6 mmol/L (3.5-5.1) 02/07/25 18:43 Chloride 101 mmol/L (98-107) 02/07/25 18:43 Carbon Dioxide 23 mmol/L (22-29) 02/07/25 18:43 Anion Gap 17.6 (5-19) 02/07/25 18:43 BUN 15 mg/dL (8-23) 02/07/25 18:43 Creatinine 1.0 mg/dL (0.7-1.2) 02/07/25 18:43 GFR Calculation 74.3 mL/min (90-130) L 02/07/25 18:43 Glucose 145 mg/dL (65-115) H 02/07/25 18:43 Calculated Osmolality 287 mOsm/kg (285-295) 02/07/25 18:43 Lactic Acid 2.0 mmol/L (0.5-2.2) 02/07/25 18:43 Calcium 9.2 mg/dL (8.5-10.5) 02/07/25 18:43 Total Bilirubin 1.8 mg/dL (0.15-1.2) H 02/07/25 18:43 AST 120 U/L (0-40) H 02/07/25 18:43 ALT 138 U/L (0-41) H 02/07/25 18:43 Alkaline Phosphatase 76 U/L (40-130) 02/07/25 18:43 Total Protein 7.2 g/dL (6.6-8.7) 02/07/25 18:43 Albumin 4.3 g/dL (3.5-5.2) 02/07/25 18:43 Globulin 2.9 g/dL (1.3-4.6) 02/07/25 18:43 Lipase 5782 U/L (13-60) H 02/07/25 18:43 Urine Color Dark yellow (Yellow) A 02/07/25 18:42 Urine Appearance Clear (CLEAR) 02/07/25 18:42 Urine pH 6.0 (5-7) 02/07/25 18:42 Ur Specific [place] 1.020 (1.005-1.030) 02/07/25 18:42 Urine Protein 1+ (Negative) A 02/07/25 18:42 Urine Glucose (UA) Negative (Normal) 02/07/25 18:42 Urine Ketones Negative (Negative) 02/07/25 18:42 Urine Blood 1+ (Negative) A 02/07/25 18:42 Urine Nitrate Negative (Negative) 02/07/25 18:42 Urine Bilirubin 1+ (Negative) H 02/07/25 18:42 Urine Urobilinogen 1.0 mg/dL (Negative) 02/07/25 18:42 Ur Leukocyte Esterase Negative (Negative) 02/07/25 18:42 Urine RBC 11-20 /hpf (0-2) H 02/07/25 18:42 Urine WBC 0-5 /hpf (0-5) 02/07/25 18:42 Ur Squamous Epith Cells 0-5 /hpf (0-5) 02/07/25 18:42 Amorphous Sediment Not Reportable 02/07/25 18:42 Urine Bacteria None seen /hpf (NONE) 02/07/25 18:42 Hyaline Casts 4.52 /lpf 02/07/25 18:42 Urine Opiates Screen Negative ng/mL (Negative) 02/07/25 18:42 Ur Barbiturates Screen Negative ng/mL (Negative) 02/07/25 18:42 Ur Phencyclidine Scrn Negative ng/mL (Negative) 02/07/25 18:42 Ur Amphetamines Screen Negative ng/mL (Negative) 02/07/25 18:42 U Benzodiazepines Scrn Negative ng/mL (Negative) 02/07/25 18:42 Urine Cocaine Screen Negative ng/mL (Negative) 02/07/25 18:42 U Marijuana (THC) Screen Negative ng/mL (Negative) 02/07/25 18:42 Ethyl Alcohol < 10 mg/dL (0-10) 02/07/25 18:43 All radiology interpretation(s) finalized by discharge Discharge Plan Discharge Patient Disposition: Admitted As Inpatient Admit Provider: Flor Connors Clinical Impression: Acute pancreatitis, Dehydration Condition: Stable Coding Level of Care 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
[2025-02-07 18:50] LABS: Basophils % 0.3 %; Eosinophils % 0.2 %; Hematocrit 52.3 % (37-53); Lymphocytes # 0.7 10^3/uL (0.8-4.8); Lymphocytes % 7.1 %; Mean Corpuscular HGB Conc 33.1 g/dL (30-55); Mean Corpuscular Hemoglobin 31.7 pg (27-33); Mean Platelet Volume 10.4 fL (7.4-10.4); Monocytes # 0.1 10^3/uL (0.2-0.9); Monocytes % 1.2 %; Neutrophils # 8.94 10^3/uL (1.8-7.7); Nucleated Red Blood Cells % 0 %; Platelet Count 150 10^3/cmm (157-399); Red Blood Count 5.45 10^6/uL (3.85-5.65); Red Cell Distribution Width 12.8 % (12.1-15.1); White Blood Count 9.83 10^3/uL (3.29-11.43)
[2025-02-07 18:56] LABS: Bilirubin Urine 1+ (Negative); Blood Urine 1+ (Negative); Glucose Urine UA Negative (Normal); Ketones Urine Negative (Negative); Leukocyte Esterase Urine Negative (Negative); Nitrate Urine Negative (Negative); Protein Urine 1+ (Negative); Urine Appearance Clear (CLEAR); Urine Color Dark Yellow (Yellow)
[2025-02-07 18:58] LABS: Bacteria Urine None Seen /hpf; Hyaline Casts Urine 4.52 /lpf; Squamous Epithelial Cell Urine 0-5 /hpf (0-5); WBC Urine 0-5 /hpf (0-5)
[2025-02-07 19:00] LABS: Amphetamines Screen Urine Negative (Negative); Barbiturates Screen Urine Negative (Negative); Benzodiazepines Screen Urine Negative (Negative); Cocaine Screen Urine Negative (Negative); Opiate Screen Urine Negative (Negative); PCP Screen Urine Negative (Negative); THC Screen Urine Negative (Negative)
[2025-02-07] MEDS: sodium chloride 0.9% 1,000 ML 999 ML IV ×2 (19:02→22:19)
[2025-02-07] MEDS: HYDROmorphone 0.5 MG/0.5 ML INJ 1 MG IVP ×2 (19:04→22:19)
[2025-02-07] MEDS: ondansetron 2 mg/ML SDV 2 mL 8 MG IVP (19:07)
[2025-02-07 19:13] LABS: Alanine Aminotransferase 138 U/L (0-41); Albumin Level 4.3 g/dL (3.5-5.2); Alkaline Phosphatase 76 U/L (40-130); Anion Gap 17.6 (5-19); Aspartate Amino Transferase 120 U/L (0-40); Blood Urea Nitrogen 15 mg/dL (8-23); Calcium 9.2 mg/dL (8.5-10.5); Carbon Dioxide 23 mmol/L (22-29); Chloride 101 mmol/L (98-107); Creatinine Clr Calc Pharmacy 87.3832; Globulin 2.9 g/dL (1.3-4.6); Glomerular Filtration Rate 74.3 mL/min (90-130); Glucose 145 mg/dL (65-115); Osmolality Calculated 287 mOsm/kg (285-295); Potassium 4.6 mmol/L (3.5-5.1); Sodium 137 mmol/L (136-145); Total Bilirubin 1.8 mg/dL (0.15-1.2); Total Protein 7.2 g/dL (6.6-8.7)
[2025-02-07 19:16] LABS: Alcohol Level < 10 mg/dL (0-10)
--- NOTE | 2025-02-07 19:19 | CTR_ITS ---
PROCEDURE INFORMATION: Exam: CT Abdomen And Pelvis With Contrast Exam date and time: 02/07/2025 7:55 PM Age: 69 years old Clinical indication: Abdominal pain; Epigastric; Additional info: Epigastric abd pain, h/o pancreatitis. TECHNIQUE: Imaging protocol: Computed tomography of the abdomen and pelvis with contrast. Radiation optimization: All CT scans at this facility use at least one of these dose optimization techniques: automated exposure control; mA and/or kV adjustment per patient size (includes targeted exams where dose is matched to clinical indication); or iterative reconstruction. Contrast material: OMNI 350; Contrast volume: 100 ml; Contrast route: INTRAVENOUS (IV); COMPARISON: US abdomen limited [id number] 01/15/2022 6:52 AM RADIATION DOSE METRICS: Total DLP (mGy-cm): 1056.36 FINDINGS: Lungs: Clear basilar lung parenchyma. Pleural spaces: No pleural fluid. Heart: Normal heart size. Diaphragm: Small sliding hiatal hernia. Liver: Homogeneous low attenuation throughout the liver is compatible with fatty infiltration. Liver measures 15.9 cm in length. Gallbladder and biliary ducts: There is gallbladder wall thickening and enhancement. No high density stones are seen. No biliary tree dilation. Pancreas: There is diffuse pancreatic edema most severely affecting the head and uncinate process. No ductal dilation. No evidence of pancreatic hemorrhage or necrosis. A tiny exophytic focus from the tail of the pancreas is stable from prior exam in 2021 (series 5, image 26). Spleen: Spleen measures 10.1 cm in length. Adrenal glands: Normal configuration. Kidneys and ureters: Kidneys enhance symmetrically and demonstrate no evidence of mass, calculus, obstruction, or inflammation. Stomach and bowel: Unremarkable. No obstruction. No mural thickening. Appendix: Normal appendix is confirmed. Intraperitoneal space: No free air. No significant fluid collection. Retroperitoneal space: Edema tracks along the right anterior pararenal fascia. Vasculature: Normal caliber arterial structures. Lymph nodes: No enlarged lymph nodes. Urinary bladder: Unremarkable as visualized. Reproductive: Physiologic appearance for age. Bones/joints: Spinal degenerative changes noted with degenerative spinal canal stenosis at L3-L4 and to a lesser degree at L4-L5. There is bilateral neural foraminal stenosis at L4-L5 and L5-S1. Bilateral sacroiliac osteoarthritis noted with ankylosis on the right. Mild bilateral hip arthropathy. No fracture or destructive bony lesion. Soft tissues: There is a fat containing direct left inguinal hernia. CT/CT abdomen pelvis w con* [id number] IMPRESSION: 1. Exam demonstrates features of acute edematous pancreatitis. No evidence of pancreatic hemorrhage or necrosis. No biliary tree dilation. 2. There is gallbladder inflammatory change without biliary tree dilation or high-density stone. Findings could be passive in the setting of pancreatitis, but the pancreatic edema is not geographically contiguous with the gallbladder. Consider ultrasound to evaluate for underlying cholelithiasis and possible cholecystitis. 3. Fatty liver without enlargement. Spleen is normal in size. 4. Spinal stenosis at L3-L4 and L4-L5. Neural foraminal stenosis is noted bilaterally at L4-L5 and L5-S1. Correlate with symptoms of neurogenic claudication and/or radiculopathy.
[2025-02-07 19:44] VITALS: BP 143/81; PULSE 85; RESP 16; O2SAT 95
[2025-02-07 20:00] VITALS: BP 109/61; PULSE 84; RESP 16; O2SAT 96
[2025-02-07] MEDS: iohexol 350 mg/mL 500 mL Btl (per mL) IV (20:00)
[2025-02-07 20:36] LABS: Lipase 5782 U/L (13-60)
[2025-02-07 21:00] VITALS: BP 109/61; PULSE 84; RESP 16; O2SAT 96
--- NOTE | 2025-02-07 22:43 | PM.HP ---
Providers/Chief Complaint Admitting Physician: Flor Connors MD----patient seen before 12 midnight Primary Care Provider: Rosmery Vargas MD Chief Complaint: abd and back pain, n/v/d History of Present Illness Curry Ross is a 69 year old male who consistently drink occasionally but heavily and had had history of severe pancreatitis in the past presented to the emergency room because of intractable nausea vomiting and diarrhea patient's wall that he will never drink again that this will be his last. Patient lipase is 5000 he is dry and dehydrated from GI losses with nausea and vomiting and diarrhea. Patient swot that the abdominal pain is very excruciating Imaging studies had shown edematous gallbladder ED staff had spoken to surgeon to make sure that this is not going to be a surgical issue and they were reassured that it is not. I have been called to see the patient I have seen patient and evaluated patient secondary to very excruciating pain and having nausea and vomiting at the time of my evaluation.. I discussed treatment care with the patient so he will understand. The mainstay of acute pancreatitis treatment judicious use IV fluid and pain management patient can have oral fluid if tolerated if not throwing up actually this seemed to make pancreatitis better. I will follow through with anti-inflammatory such as Toradol scheduled. Not to exceed 5 days and follow through with the as needed morphine as ordered. Review of Systems Narrative: System review upon 10 organ reviewed with unremarkable except for GI system with nausea vomiting and diarrhea and abdominal pain secondary to acute pancreatitis. Medications/Allergies Home Medications ?Medication ?Instructions ?Recorded ?Confirmed ?Last Taken ?Type Vitamin D3 1 cap PO QAM 12/16/21 02/07/25 Unknown History ascorbic acid (vitamin C) 500 mg 500 mg PO QAM 12/16/21 02/07/25 Unknown History tablet (Vitamin C) aspirin 81 mg tablet,delayed 81 mg PO QAM 12/16/21 02/07/25 Unknown History release magnesium oxide 400 mg PO QAM 12/16/21 02/07/25 Unknown History naproxen 500 mg tablet,delayed 500 mg PO BID PRN Pain #180 tabs 09/23/24 02/07/25 Unknown Rx release (EC-Naproxen) omeprazole 20 mg capsule,delayed 20 mg PO QAM #90 caps 09/23/24 02/07/25 Unknown Rx release Allergies Allergy/AdvReac Type Severity Reaction Status Date / Time No Known Allergies Allergy Verified 02/07/25 17:44 PFSH Acute PFSH: Medical History Asymptomatic PVCs Varicose veins of both legs with edema Metabolic dysfunction-associated steatotic liver disease (MASLD) Fasting hyperglycemia Chronic thoracic back pain old T8 compressioin fx Cervical spondylarthritis Hx of compression fracture of spine T8 on imaging Low HDL (under 40) Elevated blood pressure reading without diagnosis of hypertension Osteoarthritis (arthritis due to wear and tear of joints) Chronic low back pain with left-sided sciatica Chronic GERD without esophagitis No pertinent past medical history Surgical History Hx of esophagogastroduodenoscopy 4.1.19 Hx of colonoscopy 5.7.18 at [facility] Family History Father CAD (coronary artery disease) Cancer Melanoma Mother No problems noted. Social History Smoking and tobacco/nicotine status: never used tobacco/nicotine Alcohol intake: current Alcohol intake frequency: 0-2 Drinks per Day Alcohol type: beer Substance/Drug Use: never Household members: spouse Marital status: Number of children: 3 Highest education level completed: High School Graduate Current occupational status: retired Previous occupational history: [employer] Vitals/I&O/Wt Last Vital Signs Temp 97.6 F 02/07/25 17:40 Pulse 84 02/07/25 21:00 Resp 16 02/07/25 21:00 BP 109/61 02/07/25 21:00 Pulse Ox 96 02/07/25 21:00 O2 Del Method Nasal Cannula 02/07/25 21:00 O2 Flow Rate 2 02/07/25 21:00 Weight last 48 hrs Weight 102.058 kg Physical Exam Narrative: Generally patient is very miserable in pain. She is quite uncomfortable because of excruciating abdominal pain with nausea and vomiting. Otherwise system review were unremarkable. However patient is miserable with pain management. HEENT normocephalic atraumatic Neck neck is supple Cardiovascular heart rate is regular Chest lungs are clear Abdomen is diffusely tender but most especially in the abdominal stomach region unremarkable Extremities are intact, no edema has good pulses Data 02/07/25 18:43 02/07/25 18:43 A&P Assessment and plan (1) Acute pancreatitis: Abdominal pain nausea and vomiting secondary to acute pancreatitis - Plan IV hydration normal saline at 150 an hour monitor and optimize any electrolyte imbalance - Pain management with anti-inflammatory Toradol IV 30 mg every 6 hours not to exceed 5 days - As needed morphine 4 mg IV every 4 hours as needed - Antiemetic Zofran 4 mg IV every 4 hours as needed (2) Dehydration: - Patient has much GI losses through vomiting and diarrhea leading to dehydration - Volume is being repleted with normal saline at this time - Continue antiemetic and pain management (3) Abdominal pain: - Patient abdominal pain is due to acute pancreatitis which was caused by excessive alcohol drinking occasionally. (4) Nausea and vomiting in adult patient: - Continue antiemetic for nausea and vomiting must continue to follow through monitor Plan GI and DVT prophylaxis employed PDMP PDMP Reviewed: Not Reviewed Attestations Medical Necessity Statement*: Patient with abdominal pain along with nausea and vomiting cannot keep anything down due to acute pancreatitis this is of at least 2 midnights stay in the hospital for further optimization of these medical problem and correct any electrolytes as the depletes. Coding Level of Care Code 15688 Diagnoses Acute pancreatitis K85.90 Dehydration E86.0 Abdominal pain R10.9 Nausea and vomiting in adult patient R11.2 Time Spent (min) 60
[2025-02-07 22:56] VITALS: BP 128/78; PULSE 84; RESP 16; O2SAT 94; BMI 21.6
[2025-02-07] MEDS: ondansetron 2 mg/ML SDV 2 mL 4 MG IVP (23:18)
[2025-02-07] MEDS: sodium chloride 0.9% 1,000 ML 150 ML IV (23:19)
[2025-02-07] MEDS: pantoprazole 40 mg SDV IVP (23:19)
[2025-02-07] MEDS: ketorolac 30 mg/mL INJ IVP (23:33)
[2025-02-07 23:43] VITALS: BP 160/83; PULSE 82; RESP 18; TEMP 36.8; O2SAT 96
[2025-02-08] VITALS (11 sets, daily range): BP systolic 124–152; BP diastolic 84–95; PULSE 85–123; RESP 16–26; TEMP 36.4–36.8; O2SAT 92–97
[2025-02-08 01:51] LABS: Lipase 2238 U/L (13-60)
[2025-02-08] MEDS: ketorolac 30 mg/mL INJ IVP ×4 (04:32→22:43)
[2025-02-08] MEDS: sodium chloride 0.9% 1,000 ML 150 ML IV ×2 (04:32→11:48)
[2025-02-08] MEDS: morphine 4 mg/mL SDV 1 mL IVP ×3 (05:47→13:54)
[2025-02-08] MEDS: ondansetron 2 mg/ML SDV 2 mL 4 MG IVP ×2 (06:02→10:23)
[2025-02-08 06:03] LABS: Basophils % 0.1 %; Lymphocytes # 0.5 10^3/uL (0.8-4.8); Lymphocytes % 4.5 %; Mean Corpuscular Hemoglobin 32.1 pg (27-33); Mean Corpuscular Volume 97.3 fl (82-101); Mean Platelet Volume 10.8 fL (7.4-10.4); Monocytes # 0.6 10^3/uL (0.2-0.9); Monocytes % 5.4 %; Neutrophils # 9.86 10^3/uL (1.8-7.7); Neutrophils % 89.7 %; Nucleated Red Blood Cells % 0 %; Platelet Count 139 10^3/cmm (157-399); Red Blood Count 5.14 10^6/uL (3.85-5.65); Red Cell Distribution Width 13.2 % (12.1-15.1); White Blood Count 10.99 10^3/uL (3.29-11.43)
[2025-02-08 06:27] LABS: Alanine Aminotransferase 122 U/L (0-41); Albumin Level 3.7 g/dL (3.5-5.2); Alkaline Phosphatase 66 U/L (40-130); Anion Gap 15.8 (5-19); Aspartate Amino Transferase 76 U/L (0-40); Blood Urea Nitrogen 19 mg/dL (8-23); Carbon Dioxide 22 mmol/L (22-29); Chloride 108 mmol/L (98-107); Creatinine Clr Calc Pharmacy 81.8856; Globulin 2.5 g/dL (1.3-4.6); Glomerular Filtration Rate 74.3 mL/min (90-130); Glucose 161 mg/dL (65-115); Magnesium 1.7 mg/dL (1.7-2.3); Osmolality Calculated 298 mOsm/kg (285-295); Potassium 4.8 mmol/L (3.5-5.1); Sodium 141 mmol/L (136-145); Total Bilirubin 1.3 mg/dL (0.15-1.2); Total Protein 6.2 g/dL (6.6-8.7)
[2025-02-08 06:38] LABS: Lipase 2283 U/L (13-60)
[2025-02-08] MEDS: enoxaparin 40 mg/0.4 mL Syringe SUBCUT (08:51)
[2025-02-08] MEDS: docusate sodium 100 mg Capsule PO ×2 (08:52→17:01)
--- NOTE | 2025-02-08 10:13 | PC.CHAP ---
Pastoral Care Encounter/Spiritual Assessment Type of Contact [] Declined gravity flow irrigator visit [] Patient/Family/Request visit [] Outpatient visit [] Follow-up visit [] Physician referral [] Code/Alert [x] Routine visit [] Staff referral [] Actively dying [] Patient sleeping [x] Family support [] [] Out of room [] Palliative care [] [] Receiving care in room [] Pre-surgical visit [] Trauma [] Long length of stay [] ICU visit [] Other: Relational/Emotional Strength [x] Patient feels connected with others/family/visitors/staff [] Distress [] Loneliness/isolation [] Abandonment Spirituality of Patient [x] Person of Marilyn [] Attends Oriental Orthodox of their Marilyn [x] Believes in Prayer [] Reads Bible or Episcopal materials [] There are Spiritual issues to be addressed Casting Cleaner Interventions [x] Prayer [x] Active listening [] Non-anxious presence [x] Spiritual/emotional support [] Crisis/trauma care [] Spiritual counseling [] Bereavement support [] Provided bereavement packet [] Provided Bible/devotional materials [] Provided toy/stuffed animal, coloring book to patient or family member [] Provided Communion [] Anointing/[place]rell [] Salvation [x] Completed spiritual assessment [] Other: Impact on Illness or Injury [] Angry [] Fearful [] Anxious [] Often cries [] Exhaustion [] Unable to work [] Unable to attend yarsanism [] Unable to walk/stand [] Unable to read [] Unable to drive [] Unable to eat/drink [] Unable to sleep [] Unable to be with family [] Patient intubated [] Other: Summary Time spent with patient 10 min
--- NOTE | 2025-02-08 10:40 | ECG_ITS ---
[facility] Date: 2025-02-08 Pat Name: Curry Ross Department: Room: 271 Gender: Male Embedded Developer: : 1955 Requested By: Layne Cooper Order Number: [id number] Reading MD: JAKE BAHENA Measurements Intervals Peerless Rate: 84 P: 15 CO: 182 QRS: -13 QRSD: 96 T: 9 QT: 364 QTc: 432 Interpretive Statements SINUS RHYTHM WITH OCCASIONAL SUPRAVENTRICULAR PREMATURE COMPLEXES MINIMAL VOLTAGE CRITERIA FOR LVH, CONSIDER NORMAL VARIANT [MEETS CRITERIA IN ONE OF: R(aVL), S(V1), R(V5), R(V5/V6)+S(V1)] NONSPECIFIC T-WAVE ABNORMALITY Compared to ECG 12/16/2021 04:39:21 No significant changes Electronically Signed On 02-08-2025 22:51:40 CDT by JAKE BAHENA [email or web address]
[2025-02-08 11:12] LABS: Troponin T (5th) Once 12 ng/L (0-15)
--- NOTE | 2025-02-08 13:42 | P.PN_ITS ---
Subjective 2 Subjective: seen today able to tolerate sips of water still having mild epigastric pain Vitals/I&O/Wt Last Vital Signs Temp 98 F 02/08/25 12:15 Pulse 85 02/08/25 12:15 Resp 18 02/08/25 12:15 BP 137/87 02/08/25 12:15 Pulse Ox 97 02/08/25 12:15 O2 Del Method Nasal Cannula 02/08/25 12:15 O2 Flow Rate 2 02/08/25 03:28 02/07/25 02/08/25 02/08/25 22:59 06:59 14:59 Intake Total 1999 782.5 / 2782.5 1670 / 1670 Output Total 500 / 500 400 / 400 Balance 1999 282.5 / 2282.5 1270 / 1270 Weight last 48 hrs Weight 88.314 kg Weight 72.393 kg Weight 102.058 kg Physical Exam 2 Narrative: Generally: AO x3 HEENT normocephalic atraumatic Neck neck is supple Cardiovascular heart rate is regular Chest lungs are clear Abdomen: soft, mildly tender in epigastric area unremarkable Extremities are intact, no edema has good pulses Data 02/08/25 05:01 02/08/25 05:01 A&P Assessment and plan (1) Acute pancreatitis: Abdominal pain nausea and vomiting secondary to acute pancreatitis - Plan IV hydration normal saline at 150 an hour monitor and optimize any electrolyte imbalance - Pain management with anti-inflammatory Toradol IV 30 mg every 6 hours not to exceed 5 days - As needed morphine 4 mg IV every 4 hours as needed - Antiemetic Zofran 4 mg IV every 4 hours as needed (2) Dehydration: - Patient has much GI losses through vomiting and diarrhea leading to dehydration - Volume is being repleted with normal saline at this time - Continue antiemetic and pain management (3) Abdominal pain: - Patient abdominal pain is due to acute pancreatitis which was caused by excessive alcohol drinking occasionally. (4) Nausea and vomiting in adult patient: - Continue antiemetic for nausea and vomiting must continue to follow through monitor Plan GI and DVT prophylaxis employed 02/08/2025 continue IV fluids continue sips, chips start jello /clear liquid diet towards later in day patient still having epigastric pain slowly advance diet as tolerated. continue zofran as needed continue pain medicine as needed check trop, ekg, PDMP PDMP Reviewed: Not Reviewed Attestations 2 Medical Necessity Statement*: pancreatitis, requires inpatient stay Diagnoses Acute pancreatitis K85.90 Dehydration E86.0 Abdominal pain R10.9 Nausea and vomiting in adult patient R11.2
--- NOTE | 2025-02-08 17:09 | XRR_ITS ---
PROCEDURE INFORMATION: Exam: XR Chest Exam date and time: 02/08/2025 5:30 PM Age: 69 years old Clinical indication: Shortness of breath and wheezing; Additional info: Hard to breathe and wheezying TECHNIQUE: Imaging protocol: Radiologic exam of the chest. Views: 1 view. COMPARISON: CT angio chest w abd pel w con 12/16/2021 12:45 AM FINDINGS: Lungs: Poor inspiratory effort and patient positioning limits evaluation of the lung quijano, however the upper lungs are clear. Pleural spaces: Unremarkable. No pleural effusion. No pneumothorax. Heart/Mediastinum: Unremarkable. No cardiomegaly. Bones/joints: Unremarkable. XR/XR chest 1V portable [id number] IMPRESSION: As above.
[2025-02-08] MEDS: ipratropium-albuterol 3 mL Neb INHALATION (17:27)
--- NOTE | 2025-02-08 17:28 | PC.NURSE ---
Patient care nurse Sondra collected urine from patient. Urine is dark brown in color. Dr. Cooper notified. Stat MRCP ordered.
--- NOTE | 2025-02-08 17:40 | USR_ITS ---
PROCEDURE INFORMATION: Exam: US Abdomen, Limited; Right Upper Quadrant Exam date and time: 02/08/2025 5:58 PM Age: 69 years old Clinical indication: Nausea and vomiting; Additional info: Check common bile duct for blockage TECHNIQUE: Imaging protocol: Real time ultrasound of the abdomen with image documentation. Limited exam focused on the right upper quadrant. COMPARISON: US abdomen limited [id number] 01/15/2022 6:52 AM FINDINGS: Liver: Normal. No masses. Gallbladder: The gallbladder is not well visualized. However it does not appear overtly dilated and there are no definitive stones. Biliary ducts: Common bile duct measures up to 5 mm. Pancreas: Limited evaluation of the pancreas due to overlying bowel gas. Right kidney: Normal. No mass. No hydronephrosis. US/US gall bladder [id number] IMPRESSION: As above.
[2025-02-08 17:55] LABS: Bilirubin Urine 2+ (Negative); Blood Urine 3+ (Negative); Glucose Urine UA Trace (Normal); Ketones Urine Negative (Negative); Leukocyte Esterase Urine 2+ (Negative); Nitrate Urine Positive (Negative); Protein Urine 3+ (Negative); Urine Appearance Turbid (CLEAR)
[2025-02-08 17:57] LABS: Hyaline Casts Urine 5.24 /lpf
[2025-02-08 18:16] LABS: Specific Gravity, Urine 1.037 (1.005-1.030); UA Slide Review UA Slide Review Perf
[2025-02-08 18:17] LABS: Urine Color Other (Yellow)
[2025-02-08 18:21] LABS: Bacteria Urine 1+ /hpf
[2025-02-08 18:22] LABS: Add Urine Culture? Yes
[2025-02-08 19:20] LABS: Alanine Aminotransferase 108 U/L (0-41); Albumin Level 3.3 g/dL (3.5-5.2); Alkaline Phosphatase 64 U/L (40-130); Anion Gap 15.4 (5-19); Aspartate Amino Transferase 62 U/L (0-40); Blood Urea Nitrogen 22 mg/dL (8-23); Calcium 7.7 mg/dL (8.5-10.5); Carbon Dioxide 18 mmol/L (22-29); Chloride 105 mmol/L (98-107); Creatinine Clr Calc Pharmacy 74.4415; Globulin 2.4 g/dL (1.3-4.6); Glomerular Filtration Rate 66.6 mL/min (90-130); Glucose 160 mg/dL (65-115); Osmolality Calculated 285 mOsm/kg (285-295); Potassium 4.4 mmol/L (3.5-5.1); Sodium 134 mmol/L (136-145); Total Bilirubin 1.6 mg/dL (0.15-1.2); Total Protein 5.7 g/dL (6.6-8.7)
[2025-02-08 19:29] LABS: RBC Urine 50-80 /hpf (0-2)
[2025-02-08] MEDS: pantoprazole 40 mg SDV IVP (21:27)
[2025-02-08] MEDS: sennosides 8.6 mg Tablet 17.2 MG PO (21:27)
[2025-02-09] VITALS (10 sets, daily range): BP systolic 105–170; BP diastolic 63–99; PULSE 77–97; RESP 17–20; TEMP 36.4–37; O2SAT 92–94
[2025-02-09] MEDS: morphine 4 mg/mL SDV 1 mL IVP ×3 (03:35→21:37)
[2025-02-09] MEDS: ketorolac 30 mg/mL INJ IVP ×3 (06:00→16:07)
[2025-02-09 06:43] LABS: Basophils # 0.1 10^3/uL (0.0-0.1); Basophils % 0.6 %; Hematocrit 49.1 % (37-53); Lymphocytes # 0.9 10^3/uL (0.8-4.8); Lymphocytes % 6.7 %; Mean Corpuscular HGB Conc 31.8 g/dL (30-55); Mean Corpuscular Hemoglobin 31.9 pg (27-33); Mean Corpuscular Volume 100.4 fl (82-101); Mean Platelet Volume 10.9 fL (7.4-10.4); Monocytes # 0.8 10^3/uL (0.2-0.9); Monocytes % 5.8 %; Neutrophils # 11.42 10^3/uL (1.8-7.7); Neutrophils % 86.4 %; Nucleated Red Blood Cells % 0 %; Platelet Count 102 10^3/cmm (157-399); Red Blood Count 4.89 10^6/uL (3.85-5.65); Red Cell Distribution Width 13.2 % (12.1-15.1); White Blood Count 13.21 10^3/uL (3.29-11.43)
[2025-02-09 07:10] LABS: Alanine Aminotransferase 109 U/L (0-41); Albumin Level 2.9 g/dL (3.5-5.2); Alkaline Phosphatase 86 U/L (40-130); Aspartate Amino Transferase 64 U/L (0-40); Blood Urea Nitrogen 28 mg/dL (8-23); Calcium 7.9 mg/dL (8.5-10.5); Carbon Dioxide 20 mmol/L (22-29); Chloride 103 mmol/L (98-107); Creatinine Clr Calc Pharmacy 62.7797; Globulin 2.9 g/dL (1.3-4.6); Glomerular Filtration Rate 54.9 mL/min (90-130); Glucose 133 mg/dL (65-115); Osmolality Calculated 283 mOsm/kg (285-295); Sodium 133 mmol/L (136-145); Total Bilirubin 1.3 mg/dL (0.15-1.2); Total Protein 5.8 g/dL (6.6-8.7)
[2025-02-09 08:19] LABS: Slide Review Slide Review Perform
[2025-02-09] MEDS: docusate sodium 100 mg Capsule PO ×2 (09:04→17:31)
[2025-02-09] MEDS: enoxaparin 40 mg/0.4 mL Syringe SUBCUT (09:04)
[2025-02-09] MEDS: piperacillin-tazobactam 3.375 GM in sodium chloride 0.9% (plus) 50 ML IV ×2 (09:06→16:05)
--- NOTE | 2025-02-09 10:55 | P.PN_ITS ---
Subjective 2 Subjective: Seen today, creatinine 1.3 this morning Patient coughing and bringing up phlegm. Does endorse secondhand smoke exposure Chest x-ray showed bilateral pleural effusions. Vitals/I&O/Wt Last Vital Signs Temp 98.2 F 02/10/25 07:48 Pulse 85 02/10/25 07:48 Resp 14 02/10/25 07:48 BP 141/82 02/10/25 07:48 Pulse Ox 93 02/10/25 07:48 O2 Del Method Room Air 02/10/25 07:48 O2 Flow Rate 2 02/08/25 03:28 02/09/25 02/10/25 02/10/25 22:59 06:59 14:59 Intake Total 290 / 1180 500 / 1680 Output Total 300 / 300 100 / 400 Balance - 400 / 1280 Weight last 48 hrs Weight 83.915 kg Weight 87.634 kg Physical Exam 2 Narrative: Generally: AO x3 HEENT normocephalic atraumatic Neck neck is supple Cardiovascular heart rate is regular Chest lungs are clear with diffuse rhonchi. Normal S1, S2, patient coughing Abdomen: soft, nontender to palpation. Improved with normal exam. unremarkable Extremities are intact, no edema has good pulses Data 02/10/25 06:59 02/10/25 06:59 Micro: Microbiology 02/08/25 17:20 Urine Culture - Preliminary Urine,Clean Catch A&P Assessment and plan (1) Acute pancreatitis: Abdominal pain nausea and vomiting secondary to acute pancreatitis - Plan IV hydration normal saline at 150 an hour monitor and optimize any electrolyte imbalance - Pain management with anti-inflammatory Toradol IV 30 mg every 6 hours not to exceed 5 days - As needed morphine 4 mg IV every 4 hours as needed - Antiemetic Zofran 4 mg IV every 4 hours as needed (2) Dehydration: - Patient has much GI losses through vomiting and diarrhea leading to dehydration - Volume is being repleted with normal saline at this time - Continue antiemetic and pain management (3) Abdominal pain: - Patient abdominal pain is due to acute pancreatitis which was caused by excessive alcohol drinking occasionally. (4) Nausea and vomiting in adult patient: - Continue antiemetic for nausea and vomiting must continue to follow through monitor (5) Systolic congestive heart failure: (6) ANNA (acute kidney injury): Plan GI and DVT prophylaxis employed 02/08/2025 continue IV fluids continue sips, chips start jello /clear liquid diet towards later in day patient still having epigastric pain slowly advance diet as tolerated. continue zofran as needed continue pain medicine as needed check trop, ekg, 02/09/2025 Creatinine 1.3 today. Possibility of new onset heart failure? Does have bilateral pleural effusions. Will repeat chest x-ray in a.m. Add Solu-Medrol 40 IV twice daily for possible underlying undiagnosed COPD and having a flareup at this point. Zosyn will cover empirically for pneumonia as well. Check echocardiogram. I suspect possibility of heart failure. Elevation in creatinine could possibly be cardiorenal? Will recheck BMP in AM. If echo does show any abnormalities we will consult cardiology at that point He is tolerating GI soft diet. Bilateral pleural effusions noted. May require thoracentesis however we will monitor. PDMP PDMP Reviewed: Not Reviewed Attestations 2 Medical Necessity Statement*: Requires continued hospitalization for cough, heart failure workup Diagnoses Acute pancreatitis K85.90 Dehydration E86.0 Abdominal pain R10.9 Nausea and vomiting in adult patient R11.2 Systolic congestive heart failure I50.20 ANNA (acute kidney injury) N17.9
--- NOTE | 2025-02-09 12:05 | XR_ITS ---
WS: [id number] XR chest 1V portable [id number] REASON FOR EXAM: pleural effusions FINDINGS: The chest is unchanged compared to 02/08/2025. There is hypoexpansion of the lungs. Elevation of the right hemidiaphragm. Moderate tortuosity and ectasia of the thoracic aorta. Widening of the mediastinum which is likely due to tortuous great vessels and abundant mediastinal fat. The heart is at the upper limits of normal in size. No acute pulmonary parenchymal or pleural abnormality. XR/XR chest 1V portable [id number] IMPRESSION: Stable chest without acute abnormality. No findings of pleural effusion. No pleural effusions were demonstrated on the CT scan of the abdomen and pelvis 02/07/2025.
--- NOTE | 2025-02-09 12:05 | USCV_ITS ---
Curry Ross Age: 69 Gender: M : 1955 Exam Date: 02/09/2025 14:12 Ordering Phys: Layne Cooper MD Technologist: KRYSTIAN [place] [facility] [place]: Bilat pleural effusions. ?HF BP: 128 / 73 HR: 86 Rhythm: Sinus Technical Quality: Adequate MEASUREMENTS (Male / Female) Normal Values 2D ECHO LV Diastolic Diameter PLAX 6.6 cm 4.2 - 5.9 / 3.9 - 5.3 cm IVS Diastolic Thickness 0.6 cm 0.6 - 1.0 / 0.6 - 0.9 cm IVS Systolic Thickness 1.4 cm LVPW Diastolic Thickness 1.0 cm 0.6 - 1.0 / 0.6 - 0.9 cm LVPW Systolic Thickness 1.6 cm LVOT Diameter 2.0 cm LV Ejection Fraction 2D Teich 49.7 % LV Ejection Fraction MOD 4C 37.1 % LV Ejection Fraction MOD 2C 51.3 % LV Ejection Fraction 2C AL 50.5 % LA Diameter 4.0 cm RA Systolic Volume 4C AL 24.9 ml RA Systolic Volume 4C MOD 25.4 ml LA Sys Volume AL 51.8 cm cubed LA Sys Volume Index AL 24.4 cm cubed/m squared Aorta at Sinotubular Diameter 2.8 cm M-MODE LA Ao Ratio MM 1.1 AV Cusp Separation MM 1.9 cm DOPPLER AV Peak Velocity 116.0 cm/s LVOT Peak Velocity 82.0 cm/s AV Area Cont Eq vti 2.6 cm squared AV Area Cont Eq pk 2.3 cm squared MV Peak Velocity 104.0 cm/s MV Area PHT 4.8 cm squared Mitral E to A Ratio 0.6 TR Peak Velocity 88.0 cm/s TR Peak Gradient 3.1 mmHg TV Peak E Velocity 63.0 cm/s FINDINGS Left Ventricle Mildly increased left ventricular cavity size. Moderately decreased left ventricular systolic function. Left ventricular ejection fraction is estimated at 45 %. Global left ventricular hypokinesis. Grade I/IV diastolic dysfunction (abnormal relaxation filling pattern), normal to mildly elevated filling pressures. Right Ventricle The right ventricle is normal in size and function. Right Atrium The right atrium is normal in size. Left Atrium The left atrium is normal in size. Mitral Valve Mildly thickened mitral valve. No mitral valve stenosis. Trace mitral valve regurgitation. Aortic Valve Moderate aortic valve calcification. No aortic valve stenosis. Trace to mild aortic valve regurgitation. Tricuspid Valve Structurally normal tricuspid valve without significant stenosis or regurgitation. Pulmonary artery systolic pressure is normal. Pulmonic Valve Structurally normal pulmonic valve without significant stenosis. There is no pulmonic regurgitation. Pericardium Normal pericardium without effusion. Aorta Normal ascending aorta dimension. IVC The inferior vena cava appears normal. CONCLUSIONS Mildly increased left ventricular cavity size. Moderately decreased left ventricular systolic function. Left ventricular ejection fraction is estimated at 45 %. Global left ventricular hypokinesis. Grade I/IV diastolic dysfunction (abnormal relaxation filling pattern), normal to mildly elevated filling pressures. Mildly thickened mitral valve. No mitral valve stenosis. Trace mitral valve regurgitation. There is no pericardial effusion. Right atrial pressure is around5 mm of mercury. Dequan Menon MD (Electronically Signed) Final Date: 09 February 2025 21:13 S
[2025-02-09] MEDS: methylPREDNISolone sod succ 40 mg/mL INJ IVP (12:43)
--- NOTE | 2025-02-09 17:27 | MR_ITS ---
WS: [id number] MRCP (MAGNETIC RESONANCE CHOLANGIOPANCREATOGRAPHY) HISTORY: POSS COMMON BILE DUCT BLOCKAGE COMPARISON: Ultrasound 02/08/2025. Prior CT 02/07/2025 TECHNIQUE: Multiple sequences are performed to evaluate the intra and extrahepatic ducts. Very small bilateral pleural effusions. RIGHT slightly greater than LEFT. Normally distended gallbladder. No signal abnormality within the gallbladder. No wall thickening. There is a small amount of adjacent pericholecystic fluid. This is diffuse fluid and not focal to the gallbladder. Common bile duct is normal and small caliber. The CBD is poorly visualized in its entirety due to motion artifact. Patient is very short of breath. Small amount of diffuse edema and fluid within the peritoneal cavity, greatest surrounding the pancreas and extending along the paracolic gutters. Pancreas is enlarged and inflamed. Edematous pancreas with no adjacent fluid collection or pseudocyst. Pancreatic duct is not dilated. Mild diffuse hepatic steatosis. Liver and spleen are normal size. Kidneys are normal size. Subcentimeter bilateral cortical cysts. MR/MR MRCP [id number] IMPRESSION: 1. Normal sized common bile duct. No intrahepatic duct dilatation. There is mi ld limitation as the patient was short of breath and there is motion artifact o n this examination. 2. Normally distended gallbladder. 3. There is fluid adjacent to the gallbladder but this is diffuse fluid and no t focal to the gallbladder from patient's known pancreatitis. 4. Edematous enlarged pancreas from pancreatitis. 5. Small bilateral pleural effusions, RIGHT greater than LEFT.
[2025-02-09] MEDS: sennosides 8.6 mg Tablet 17.2 MG PO (21:37)
[2025-02-10] VITALS (7 sets, daily range): BP systolic 103–174; BP diastolic 64–82; PULSE 63–86; RESP 14–19; TEMP 36.4–36.8; O2SAT 93–96
[2025-02-10] MEDS: piperacillin-tazobactam 3.375 GM in sodium chloride 0.9% (plus) 50 ML IV ×3 (00:34→16:34)
[2025-02-10] MEDS: pantoprazole 40 mg SDV IVP ×3 (00:34→23:15)
[2025-02-10] MEDS: methylPREDNISolone sod succ 40 mg/mL INJ IVP ×3 (00:34→23:14)
[2025-02-10] MEDS: ketorolac 30 mg/mL INJ IVP ×2 (00:34→04:41)
[2025-02-10] MEDS: FUROsemide 10 mg/mL SDV 4mL 40 MG IVP (06:06)
--- NOTE | 2025-02-10 06:12 | P.PN_ITS ---
Subjective 2 Subjective: Seen this morning. WBC 14,000 this morning Creatinine 1.8 Urine is clear yellow. Liver enzymes trending down Echo shows EF 45%. Patient's cough is slightly better. Steroids were added yesterday. Vitals/I&O/Wt Last Vital Signs Temp 98.1 F 02/10/25 04:00 Pulse 74 02/10/25 04:00 Resp 17 02/10/25 04:00 BP 103/64 02/10/25 04:00 Pulse Ox 94 02/10/25 04:00 O2 Del Method Room Air 02/10/25 04:00 O2 Flow Rate 2 02/08/25 03:28 02/09/25 02/09/25 02/10/25 14:59 22:59 06:59 Intake Total 890 / 890 290 / 1180 500 / 1680 Output Total 300 / 300 100 / 400 Balance 890 / 890 -10 / 880 400 / 1280 Weight last 48 hrs Weight 83.915 kg Weight 87.634 kg Physical Exam 2 Narrative: Generally: AO x3 HEENT normocephalic atraumatic Neck neck is supple Cardiovascular heart rate is regular Chest lungs are clear with minimal diffuse rhonchi. Normal S1 Abdomen: soft, nontender to palpation. Improved with normal exam. unremarkable Extremities are intact, no edema has good pulses Data 02/10/25 06:59 02/10/25 06:59 A&P Assessment and plan (1) Acute pancreatitis: Abdominal pain nausea and vomiting secondary to acute pancreatitis - Plan IV hydration normal saline at 150 an hour monitor and optimize any electrolyte imbalance - Pain management with anti-inflammatory Toradol IV 30 mg every 6 hours not to exceed 5 days - As needed morphine 4 mg IV every 4 hours as needed - Antiemetic Zofran 4 mg IV every 4 hours as needed (2) Dehydration: - Patient has much GI losses through vomiting and diarrhea leading to dehydration - Volume is being repleted with normal saline at this time - Continue antiemetic and pain management (3) Abdominal pain: - Patient abdominal pain is due to acute pancreatitis which was caused by excessive alcohol drinking occasionally. (4) Nausea and vomiting in adult patient: - Continue antiemetic for nausea and vomiting must continue to follow through monitor (5) Systolic congestive heart failure: (6) ANNA (acute kidney injury): Plan GI and DVT prophylaxis employed 02/08/2025 continue IV fluids continue sips, chips start jello /clear liquid diet towards later in day patient still having epigastric pain slowly advance diet as tolerated. continue zofran as needed continue pain medicine as needed check trop, ekg, 02/10/2025 Patient does have ANNA with creatinine 1.8. Stop Toradol. Avoid nephrotoxic agents. Placed on gentle IV fluid hydration with normal saline 100 cc/h. Echo shows EF 45% with left ventricular global hypokinesis. Patient does drink alcohol. Suspect nonischemic cardiomyopathy however patient's dad at age 66 with a heart attack and he has had secondhand smoke exposure. Does report bilateral lower extremity swelling if he sits for a long time. Denies chest pain however states he does get short of breath when he exerts himself however attributes that to his old age. Cardiology consulted. Will await recommendations. Will recheck BMP towards the afternoon and another BMP tomorrow morning. Continue antibiotics for UTI Patient's updated at bedside. Patient agreeable to stay in the hospital. PDMP PDMP Reviewed: Not Reviewed Attestations 2 Medical Necessity Statement*: Does have ANNA with creatinine of 1.8 and new EF of 45% with left ventricular global hypokinesis will need further workup and require IV fluids secondary to ANNA. Expect another 48-hour stay. Diagnoses Acute pancreatitis K85.90 Dehydration E86.0 Abdominal pain R10.9 Nausea and vomiting in adult patient R11.2 Systolic congestive heart failure I50.20 ANNA (acute kidney injury) N17.9
[2025-02-10 07:07] LABS: Basophils # 0.1 10^3/uL (0.0-0.1); Basophils % 0.3 %; Eosinophils % 0.3 %; Hematocrit 43.8 % (37-53); Lymphocytes # 0.6 10^3/uL (0.8-4.8); Lymphocytes % 4.4 %; Mean Corpuscular HGB Conc 33.8 g/dL (30-55); Mean Corpuscular Hemoglobin 31.8 pg (27-33); Mean Corpuscular Volume 94.2 fl (82-101); Mean Platelet Volume 10.8 fL (7.4-10.4); Monocytes # 0.9 10^3/uL (0.2-0.9); Neutrophils # 12.79 10^3/uL (1.8-7.7); Neutrophils % 88.7 %; Nucleated Red Blood Cells % 0 %; Platelet Count 115 10^3/cmm (157-399); Red Blood Count 4.65 10^6/uL (3.85-5.65); Red Cell Distribution Width 13.2 % (12.1-15.1); White Blood Count 14.44 10^3/uL (3.29-11.43)
[2025-02-10 07:32] LABS: Estmated Average Glucose 123; Hemoglobin A1C 5.9 % (4.0-6.0)
[2025-02-10 07:35] LABS: Alanine Aminotransferase 78 U/L (0-41); Albumin Level 3.3 g/dL (3.5-5.2); Alkaline Phosphatase 83 U/L (40-130); Anion Gap 13.7 (5-19); Aspartate Amino Transferase 41 U/L (0-40); Blood Urea Nitrogen 36 mg/dL (8-23); Calcium 8.7 mg/dL (8.5-10.5); Carbon Dioxide 25 mmol/L (22-29); Chloride 99 mmol/L (98-107); Cholesterol 114 mg/dL (0-200); Creatinine Clr Calc Pharmacy 44.5144; Globulin 3.3 g/dL (1.3-4.6); Glomerular Filtration Rate 37.7 mL/min (90-130); Glucose 175 mg/dL (65-115); HDL Cholesterol 10 mg/dL (60-100); LDL Cholesterol Calculated 32 mg/dL (50-129); Magnesium 2.4 mg/dL (1.7-2.3); NT Pro B Type Natriuretic Pept 1213 pg/mL (0-125); Osmolality Calculated 289 mOsm/kg (285-295); Potassium 4.7 mmol/L (3.5-5.1); Sodium 133 mmol/L (136-145); Thyroid Stimulating Hormone 1.62 uIU/mL (0.27-4.20); Total Bilirubin 1.2 mg/dL (0.15-1.2); Total Protein 6.6 g/dL (6.6-8.7); Triglycerides 360 mg/dL (0-150); VLDL Cholestrol Calculation 72 mg/dL (0-30)
[2025-02-10 07:52] LABS: Slide Review Slide Review Perform
[2025-02-10] MEDS: sodium chloride 0.9% 1,000 ML 100 ML IV ×2 (09:50→20:04)
--- NOTE | 2025-02-10 10:19 | PC.SOCIAL ---
IMM Update pg 2 of IMM updated and reviewed w/ patient. Copy dated, copy provided and copy placed in chart.
[2025-02-10] MEDS: enoxaparin 40 mg/0.4 mL Syringe SUBCUT (10:25)
[2025-02-10] MEDS: docusate sodium 100 mg Capsule PO ×2 (10:26→17:11)
--- NOTE | 2025-02-10 14:11 | P.CONIM_ITS ---
<Statement entered by Dequan Menon MD - 02/10/25 22:30> Patient was evaluated and cared for in conjunction with an advanced practice practitioner. I personally examined the patient and reviewed the chart and all pertinent data including imaging, telemetry, and laboratory results. I discussed the patient in detail with the advanced practice practitioner. Please see their note for complete H&P testing result and agreed upon plan of care for the patient. Providers/Reason For Consult 2 Consulting Physician/Specialty*: Dr. Menon Reason for Consult*: New onset systolic heart failure Requesting Physician: Dr. Cooper Attending Physician: Layne Cooper MD Primary Care Provider: Rosmery Vargas MD History of Present Illness History of Present Illness This is a very pleasant 69-year-old gentleman who came into the room 3 days ago for abdominal pain, nausea and vomiting. He states it started 1 day prior to this. He also had intractable back pain that radiated through his chest. He denies any of this at this time. He states he drinks beer throughout the week and different amounts at different times. He states he has had a history of pancreatitis. He was started on IV fluids, and developed shortness of breath and crackles, so an echo was done. This showed an EF of 45% with global hypokenesis. He was given lasix IV with good response. Creat is increased at 1.8 from 1.3. He states for a couple of weeks, he noticed shortness of breath on exertion and fatigue. Currently patient is getting IV fluids and appears well compensated. He denies shortness of breath at this time. Probnp was 1213. EKG showed no acute ST elevation or t wave abnormalities. Review of Systems 2 Narrative: Consitutional: denies fever, chills, body aches, or changes in appetite, denies abnormal weight loss, reports recent fatigue Card: Denies chest pain, palpitations, irregular heart rhythm, edema, syncope, shortness of breath, orthopnea Resp: Denies shortness of breath, denies hemoptysis, denies cough GI: denies abdominal pain, denies nausea or voimting, denies blood in stool : denies blood in urine, denies dysuria Musc: Denies extremity pain, denies limited range of motion or recent injury Skin: Denies rash, lesions, or wounds, denies changes to skin color Neuro: Denies nubmness in extremities, h/a, s/s of stroke Jatinder: Denies easy bruiding/bleeding Medications/Allergies Home Medications ?Medication ?Instructions ?Recorded ?Confirmed ?Last Taken ?Type ascorbic acid (vitamin C) 500 mg 500 mg PO QAM 2 02/08/25 Unknown History tablet (Vitamin C) aspirin 81 mg tablet,delayed 81 mg PO QAM 12/16/2112/3002/07/25 History release magnesium oxide 400 mg PO QAM 12/16/2102/0802/07/25 History omeprazole 20 mg capsule,delayed 20 mg PO QAM #90 caps 09/23/24 02/08/25 02/07/25 Rx release cholecalciferol (vitamin D3) 50 50 mcg PO DAILY 02/08/25 Unknown History mcg (2,000 unit) tablet (Vitamin D3) naproxen 500 mg tablet 500 mg PO BID PRN Pain 02/0802/08/25 Unknown History timolol maleate 0.5 % eye drops 1 drp ophthalmic (eye) BID 02/08/25 02/08/25 02/07/25 History Allergies Allergy/AdvReac Type Severity Reaction Status Date / Time No Known Allergies Allergy Verified 02/07/25 17:44 Current Medications Generic Name Dose Route Start Last Admin Trade Name Freq PRN Reason Stop Dose Admin Docusate Sodium 100 mg 02/08/25 09:00 02/10/25 10:26 Docusate Sodium 100 Mg Capsule PO 100 mg BID NORI Administration Enoxaparin Sodium 40 mg 02/08/25 09:00 02/10/25 10:25 Enoxaparin 40 Mg/0.4 Ml Syringe SUBCUT 40 mg Q24H NORI Administration Piperacillin Sod/Tazobactam 50 mls @ 12.5 mls/hr 02/09/25 08:30 02/10/25 09:54 Sod 3.375 gm/ Sodium Chloride IV 12.5 mls/hr Q8H NORI Administration Sodium Chloride 1,000 mls @ 100 mls/hr 02/10/25 09:00 02/10/25 09:50 Sodium Chloride 0.9% IV 100 mls/hr .Q10H NORI Administration Methylprednisolone Sodium Succinate 40 mg 02/09/25 12:15 02/10/25 12:34 Methylprednisolone Sod Succ 40 Mg/Ml Inj IVP 40 mg Q12H NORI Administration Morphine Sulfate 4 mg 02/07/25 22:56 02/09/25 21:37 Morphine 4 Mg/Ml Sdv 1 Ml IVP 4 mg Q4H PRN Administration SEVERE PAIN Ondansetron HCl 4 mg 02/07/25 22:56 02/08/25 10:23 Ondansetron 2 Mg/Ml Sdv 2 Ml IVP 4 mg Q4H PRN Administration vomiting, or N/V if npo Pantoprazole Sodium 40 mg 02/10/25 10:00 02/10/25 10:26 Pantoprazole 40 Mg Sdv IVP 40 mg Q12H NORI Administration Senna 17.2 mg 02/08/25 21:00 02/09/25 21:37 Sennosides 8.6 Mg Tablet PO 17.2 mg BEDTIME ONRI Administration PFSH Acute 2 PFSH: Medical History Asymptomatic PVCs Varicose veins of both legs with edema Metabolic dysfunction-associated steatotic liver disease (MASLD) Fasting hyperglycemia Chronic thoracic back pain old T8 compressioin fx Cervical spondylarthritis Hx of compression fracture of spine T8 on imaging Low HDL (under 40) Elevated blood pressure reading without diagnosis of hypertension Osteoarthritis (arthritis due to wear and tear of joints) Chronic low back pain with left-sided sciatica Chronic GERD without esophagitis No pertinent past medical history Surgical History Hx of esophagogastroduodenoscopy 4.1.19 Hx of colonoscopy 5.7.18 at [facility] Family History Father CAD (coronary artery disease) Cancer Melanoma Mother No problems noted. Social History Smoking and tobacco/nicotine status: never used tobacco/nicotine Alcohol intake: current Alcohol intake frequency: 0-2 Drinks per Day Alcohol type: beer Substance/Drug Use: never Household members: spouse Marital status: Number of children: 3 Highest education level completed: High School Graduate Current occupational status: retired Previous occupational history: [employer] Vitals/I&O/Wt Last Vital Signs Temp 98.0 F 02/10/25 12:00 Pulse 86 02/10/25 12:00 Resp 15 02/10/25 12:00 BP 174/71 02/10/25 12:00 Pulse Ox 95 02/10/25 12:00 O2 Del Method Room Air 02/10/25 12:00 O2 Flow Rate 2 02/08/25 03:28 02/09/25 02/10/25 02/10/25 22:59 06:59 14:59 Intake Total 290 / 1180 500 / 1680 240 / 240 Output Total 300 / 300 100 / 400 Balance -10 / 880 400 / 1280 240 / 240 Weight last 48 hrs Weight 185 lb Weight 193 lb 3.2 oz Physical Exam 2 Narrative: General: No apparent distress, healthy appearing, well nourished HENMT: normoceophalic Muskuloskeletal: Full ROM Respiratory: Normal respiratory effort, clear to auscultation bilaterally throughout all lung quijano, no use of accessory muscles Cardio: No JVD, regular rate, regular rhythm, S1 S2 normal, no murmurs, peripheral pulses 2+ radial palpated bilaterally GI: Normal to inspection, nondistended Extremities: Full ROM, normal, normal capillary refill, no cyanosis or edema Neuro: Alert and oriented x4, no focal motor deficits Psych: Affect normal, denies suicidal ideation, mental status grossly normal Skin: No rashes or lesions noted, no wounds Data 02/10/25 06:59 02/10/25 16:22 Micro: Microbiology 02/08/25 17:20 Urine Culture - Preliminary Urine,Clean Catch A&P Assessment and plan (1) Systolic congestive heart failure: (2) Essential hypertension: (3) Nausea & vomiting: (4) Acute pancreatitis: (5) Abdominal pain: Plan Patient has new onset systolic heart failure with EF of 45% with global hypokinesia. This may be nonischemic cardiomyopathy due to hx of alcohol intake, but underlying coronary artery disease is on the differential. At some point, patient will require a left heart catheterization. He has an acute renal injury, requiring fluids. Would hold lasix at this time and closely monitor I&O and renal function. Patient will need to be medically optimized prior to heart cath. Will see how patient progresses from his pancreatitis. Thank you, Dr. Cooper, for allowing us to care for this very pleasant 69 year old gentleman. PDMP PDMP Reviewed: Not Reviewed Consult Attestations 2 Medical Necessity Statement: Deferred to primary Coding Level of Care Code Acute Code for Chg Fwd Diagnoses Acute systolic congestive heart failure I50.21 Heart failure chronicity: acute Essential hypertension I10 Nausea and vomiting, unspecified vomiting type R11.2 Vomiting type: unspecified Other acute pancreatitis, unspecified complication status K85.80 Acute pancreatitis complication: unspecified Pancreatitis type: other Generalized abdominal pain R10.84 Abdominal location: generalized
[2025-02-10 17:10] LABS: Anion Gap 15.5 (5-19); Blood Urea Nitrogen 38 mg/dL (8-23); Calcium 8.3 mg/dL (8.5-10.5); Carbon Dioxide 20 mmol/L (22-29); Chloride 99 mmol/L (98-107); Creatinine Clr Calc Pharmacy 44.5144; Glomerular Filtration Rate 37.7 mL/min (90-130); Glucose 217 mg/dL (65-115); Osmolality Calculated 286 mOsm/kg (285-295); Potassium 4.5 mmol/L (3.5-5.1); Sodium 130 mmol/L (136-145)
[2025-02-10] MEDS: sennosides 8.6 mg Tablet 17.2 MG PO (20:06)
[2025-02-10] MEDS: morphine 4 mg/mL SDV 1 mL IVP (23:15)
[2025-02-11] MEDS: piperacillin-tazobactam 3.375 GM in sodium chloride 0.9% (plus) 50 ML IV ×3 (01:00→15:36)
[2025-02-11 03:48] VITALS: BP 130/71; PULSE 62; RESP 16; TEMP 36.4; O2SAT 95
[2025-02-11] MEDS: sodium chloride 0.9% 1,000 ML 100 ML IV ×2 (04:56→17:09)
[2025-02-11 05:34] LABS: Basophils % 0.1 %; Hematocrit 38.9 % (37-53); Lymphocytes # 0.9 10^3/uL (0.8-4.8); Lymphocytes % 6.7 %; Mean Corpuscular HGB Conc 33.2 g/dL (30-55); Mean Corpuscular Hemoglobin 31.3 pg (27-33); Mean Corpuscular Volume 94.4 fl (82-101); Mean Platelet Volume 11.1 fL (7.4-10.4); Monocytes # 0.9 10^3/uL (0.2-0.9); Monocytes % 6.9 %; Neutrophils # 11.67 10^3/uL (1.8-7.7); Neutrophils % 85.9 %; Nucleated Red Blood Cells % 0 %; Platelet Count 125 10^3/cmm (157-399); Red Blood Count 4.12 10^6/uL (3.85-5.65); Red Cell Distribution Width 13.3 % (12.1-15.1)
[2025-02-11 05:51] LABS: Alanine Aminotransferase 63 U/L (0-41); Alkaline Phosphatase 71 U/L (40-130); Anion Gap 10.8 (5-19); Aspartate Amino Transferase 36 U/L (0-40); Blood Urea Nitrogen 40 mg/dL (8-23); Calcium 8.5 mg/dL (8.5-10.5); Carbon Dioxide 26 mmol/L (22-29); Chloride 105 mmol/L (98-107); Creatinine Clr Calc Pharmacy 47.1329; Globulin 2.7 g/dL (1.3-4.6); Glomerular Filtration Rate 40.3 mL/min (90-130); Glucose 182 mg/dL (65-115); Magnesium 2.5 mg/dL (1.7-2.3); Osmolality Calculated 298 mOsm/kg (285-295); Potassium 4.8 mmol/L (3.5-5.1); Sodium 137 mmol/L (136-145); Total Protein 5.7 g/dL (6.6-8.7)
[2025-02-11 07:27] VITALS: BP 151/82; PULSE 65; RESP 18; TEMP 36.7; O2SAT 95
[2025-02-11] MEDS: docusate sodium 100 mg Capsule PO (08:27)
[2025-02-11] MEDS: pantoprazole 40 mg SDV IVP ×2 (09:42→22:48)
[2025-02-11] MEDS: enoxaparin 40 mg/0.4 mL Syringe SUBCUT (09:42)
[2025-02-11] MEDS: methylPREDNISolone sod succ 40 mg/mL INJ IVP (11:06)
[2025-02-11 11:39] VITALS: BP 134/79; PULSE 64; RESP 20; TEMP 36.5; O2SAT 96
[2025-02-11 15:47] VITALS: BP 136/77; PULSE 64; RESP 16; TEMP 36.6; O2SAT 93
--- NOTE | 2025-02-11 16:31 | P.PN_ITS ---
Subjective 2 Subjective: Seen today. Creatinine 1.7 White count 13.6. Patient feeling better. Vitals/I&O/Wt Last Vital Signs Temp 97.8 F 02/11/25 15:47 Pulse 64 02/11/25 15:47 Resp 16 02/11/25 15:47 BP 136/77 02/11/25 15:47 Pulse Ox 93 02/11/25 15:47 O2 Del Method Room Air 02/11/25 15:47 O2 Flow Rate 2 02/08/25 03:28 02/11/25 02/11/25 02/11/25 06:59 14:59 22:59 Intake Total 1000 / 2580 650 / 650 Output Total 500 / 500 Balance 500 / 2080 650 / 650 Weight last 48 hrs Weight 107.365 kg Weight 83.915 kg Physical Exam 2 Narrative: Generally: AO x3 HEENT normocephalic atraumatic Neck neck is supple Cardiovascular heart rate is regular Chest: Lungs clear to auscultation no wheezes no rhonchi. Normal S1, S2, Abdomen: soft, nontender to palpation. Improved with normal exam. unremarkable Extremities are intact, no edema has good pulses Data 02/11/25 05:06 02/11/25 05:06 Micro: Microbiology 02/08/25 17:20 Urine Culture - Final Urine,Clean Catch A&P Assessment and plan (1) Acute pancreatitis: Abdominal pain nausea and vomiting secondary to acute pancreatitis - Plan IV hydration normal saline at 150 an hour monitor and optimize any electrolyte imbalance - Pain management with anti-inflammatory Toradol IV 30 mg every 6 hours not to exceed 5 days - As needed morphine 4 mg IV every 4 hours as needed - Antiemetic Zofran 4 mg IV every 4 hours as needed (2) Dehydration: - Patient has much GI losses through vomiting and diarrhea leading to dehydration - Volume is being repleted with normal saline at this time - Continue antiemetic and pain management (3) Abdominal pain: - Patient abdominal pain is due to acute pancreatitis which was caused by excessive alcohol drinking occasionally. (4) Nausea and vomiting in adult patient: - Continue antiemetic for nausea and vomiting must continue to follow through monitor (5) Systolic congestive heart failure: (6) ANNA (acute kidney injury): Plan GI and DVT prophylaxis employed 02/08/2025 continue IV fluids continue sips, chips start jello /clear liquid diet towards later in day patient still having epigastric pain slowly advance diet as tolerated. continue zofran as needed continue pain medicine as needed check trop, ekg, 02/09/2025 Creatinine 1.3 today. Possibility of new onset heart failure? Does have bilateral pleural effusions. Will repeat chest x-ray in a.m. Add Solu-Medrol 40 IV twice daily for possible underlying undiagnosed COPD and having a flareup at this point. Zosyn will cover empirically for pneumonia as well. Check echocardiogram. I suspect possibility of heart failure. Elevation in creatinine could possibly be cardiorenal? Will recheck BMP in AM. If echo does show any abnormalities we will consult cardiology at that point He is tolerating GI soft diet. Bilateral pleural effusions noted. May require thoracentesis however we will monitor. 02/10/2025 Patient does have ANNA with creatinine 1.8. Stop Toradol. Avoid nephrotoxic agents. Placed on gentle IV fluid hydration with normal saline 100 cc/h. Echo shows EF 45% with left ventricular global hypokinesis. Patient does drink alcohol. Suspect nonischemic cardiomyopathy however patient's dad at age 66 with a heart attack and he has had secondhand smoke exposure. Does report bilateral lower extremity swelling if he sits for a long time. Denies chest pain however states he does get short of breath when he exerts himself however attributes that to his old age. Cardiology consulted. Will await recommendations. Will recheck BMP towards the afternoon and another BMP tomorrow morning. Continue antibiotics for UTI Patient's updated at bedside. Patient agreeable to stay in the hospital. 02/11/2025 Continue Solu-Medrol however reduced dose to 40 daily. Continue Zosyn to empirically cover for UTI. Await urine culture Echocardiogram resulted: EF 45%. New onset. Appreciate cardiology recommendations Continue IV fluids Check BMP in a.m. Creatinine 1.7 today. Slowly starting to trend down. Will need further cardiac workup once kidney function is improved. PDMP PDMP Reviewed: Not Reviewed Attestations 2 Medical Necessity Statement*: Requires continued hospitalization for cough, heart failure workup, has ANNA. Diagnoses Other acute pancreatitis, unspecified complication status K85.80 Acute pancreatitis complication: unspecified Pancreatitis type: other Dehydration E86.0 Generalized abdominal pain R10.84 Abdominal location: generalized Nausea and vomiting in adult patient R11.2 Acute systolic congestive heart failure I50.21 Heart failure chronicity: acute ANNA (acute kidney injury) N17.9
[2025-02-11 20:00] VITALS: BP 137/75; PULSE 71; RESP 19; TEMP 36.8; O2SAT 96
--- NOTE | 2025-02-11 20:24 | PM.PN ---
Subjective Subjective: He says he is feeling much better Vitals/I&O/Wt Last Vital Signs Temp 98.3 F 02/11/25 20:00 Pulse 71 02/11/25 20:00 Resp 19 H 02/11/25 20:00 BP 137/75 02/11/25 20:00 Pulse Ox 96 02/11/25 20:00 O2 Del Method Room Air 02/11/25 20:00 O2 Flow Rate 2 02/08/25 03:28 02/11/25 02/11/25 02/11/25 06:59 14:59 22:59 Intake Total 1000 / 2580 1650 / 1650 410 / 2060 Output Total 500 / 500 Balance 500 / 2080 1650 / 1650 410 / 2060 Weight last 48 hrs Weight 236 lb 11.2 oz Weight 185 lb Physical Exam Const: OTHER: GENERAL: Patient is alert, awake and oriented x3. HEART: Regular S1 and S2. No murmur, rub or gallop. LUNGS: Clear to auscultate bilaterally. CENTRAL NERVOUS SYSTEM: Grossly nonfocal. EXTREMITIES: Lower extremities with out edema bilaterally. Data 02/11/25 05:06 02/11/25 05:06 Micro: Microbiology 02/08/25 17:20 Urine Culture - Final Urine,Clean Catch A&P Assessment and plan (1) Systolic congestive heart failure: New onset etiology ischemic versus nonischemic (2) Essential hypertension: (3) Nausea & vomiting: (4) Acute pancreatitis: (5) Abdominal pain: Plan Continue IV fluid Once euvolemic and resolved pancreatitis stout may consider left heart cath as an outpatient PDMP PDMP Reviewed: Not Reviewed Attestations Medical Necessity Statement*: As per medicine Coding Level of Care Code Acute Code for [facility] Fwd Diagnoses Acute systolic congestive heart failure I50.21 Heart failure chronicity: acute Essential hypertension I10 Nausea and vomiting, unspecified vomiting type R11.2 Vomiting type: unspecified Other acute pancreatitis, unspecified complication status K85.80 Acute pancreatitis complication: unspecified Pancreatitis type: other Generalized abdominal pain R10.84 Abdominal location: generalized
[2025-02-11 22:48] VITALS: RESP 17
[2025-02-11] MEDS: morphine 4 mg/mL SDV 1 mL IVP (22:48)
[2025-02-12] VITALS (10 sets, daily range): BP systolic 112–154; BP diastolic 61–85; PULSE 59–67; RESP 15–18; TEMP 36.5–36.9; O2SAT 92–97
[2025-02-12] MEDS: sodium chloride 0.9% 1,000 ML 100 ML IV ×3 (02:27→22:14)
[2025-02-12 04:30] LABS: Basophils % 0.2 %; Eosinophils % 0.1 %; Hematocrit 37.1 % (37-53); Lymphocytes # 1.8 10^3/uL (0.8-4.8); Lymphocytes % 12.5 %; Mean Corpuscular HGB Conc 32.9 g/dL (30-55); Mean Corpuscular Hemoglobin 32.1 pg (27-33); Mean Corpuscular Volume 97.6 fl (82-101); Mean Platelet Volume 11.4 fL (7.4-10.4); Monocytes # 1.5 10^3/uL (0.2-0.9); Monocytes % 10.1 %; Neutrophils # 11.15 10^3/uL (1.8-7.7); Neutrophils % 76.3 %; Nucleated Red Blood Cells % 0 %; Platelet Count 106 10^3/cmm (157-399); Red Cell Distribution Width 13.8 % (12.1-15.1); White Blood Count 14.63 10^3/uL (3.29-11.43)
[2025-02-12 04:58] LABS: Anion Gap 12.2 (5-19); Blood Urea Nitrogen 32 mg/dL (8-23); Calcium 7.9 mg/dL (8.5-10.5); Carbon Dioxide 24 mmol/L (22-29); Chloride 107 mmol/L (98-107); Creatinine Clr Calc Pharmacy 55.9413; Glomerular Filtration Rate 43.2 mL/min (90-130); Glucose 169 mg/dL (65-115); Magnesium 2.3 mg/dL (1.7-2.3); Osmolality Calculated 299 mOsm/kg (285-295); Potassium 4.2 mmol/L (3.5-5.1); Sodium 139 mmol/L (136-145)
[2025-02-12] MEDS: piperacillin-tazobactam 3.375 GM in sodium chloride 0.9% (plus) 50 ML IV ×3 (05:35→20:51)
[2025-02-12] MEDS: methylPREDNISolone sod succ 40 mg/mL INJ IVP ×2 (05:35→17:46)
[2025-02-12] MEDS: pantoprazole 40 mg SDV IVP ×2 (08:30→21:34)
[2025-02-12] MEDS: ondansetron 2 mg/ML SDV 2 mL 4 MG IVP (08:30)
[2025-02-12] MEDS: enoxaparin 40 mg/0.4 mL Syringe SUBCUT (08:31)
[2025-02-12] MEDS: docusate sodium 100 mg Capsule PO ×2 (08:31→17:46)
--- NOTE | 2025-02-12 12:05 | XRR_ITS ---
PROCEDURE INFORMATION: Exam: XR Chest Exam date and time: 02/12/2025 3:54 PM Age: 69 years old Clinical indication: Dyspnea TECHNIQUE: Imaging protocol: Radiologic exam of the chest. Views: 1 view. COMPARISON: CR XR chest 1V portable [id number] 01/10/2025 13:09 FINDINGS: Lungs: Lungs are markedly hypoaerated with central and infrahilar crowding. No consolidation. Slight increased density seen in the left lower retrocardiac region suggestive of atelectasis or infiltrate. Overlying soft tissues somewhat obscure resolution due to diminished penetration. The semi-erect/upright view demonstrates no evidence of gross free air. Pleural spaces: When allowing for hypoaeration costophrenic angles are fairly well demarcated. No pleural effusion. No pneumothorax. Heart/Mediastinum: Cardiomediastinal silhouette relatively unchanged. Bones/joints: Unremarkable. XR/XR chest 1V portable [id number] IMPRESSION: Left infrahilar/lower lung atelectasis/infiltrate suspected.
--- NOTE | 2025-02-12 12:05 | XRR_ITS ---
PROCEDURE INFORMATION: Exam: XR Abdomen Exam date and time: 02/12/2025 3:54 PM Age: 69 years old Clinical indication: Abdominal pain; Additional info: Absent bowel sounds, abd pain, pancreatitis TECHNIQUE: Imaging protocol: Radiologic exam of the abdomen. Views: Frontal supine view of the abdomen. 1 View. COMPARISON: MR MRCP [id number] 01/10/2025 08:29 FINDINGS: Gastrointestinal tract: A mild amount of granular debris is seen along the ascending portion of the colon. Mild amount of air is noted along the transverse portion of the colon. There is no evidence of small bowel air seen. The hepatic flexure is positioned superiorly just below the level of the diaphragm and this configuration is in the range of normal is consistent with the recent CT findings from 5 days ago. No bowel dilation. Bones/joints: Degenerative changes of the thoracolumbar spine noted. Other findings: Vasectomy clips . XR/XR KUB portable [id number] IMPRESSION: 1. No acute abdominal plain film findings. 2. If further discrimination is needed an upright plain film is suggested for consideration.
--- NOTE | 2025-02-12 12:07 | P.PN_ITS ---
Subjective 2 Subjective: The patient had chest pain overnight and he said that it felt like a tugging sensation. It lasted for a number of hours. He no longer has chest pain. He has been having increased abdominal pain especially in the epigastrium radiating to his back. He has been more short of breath as well. He has been able to drink water, however does not have much of an appetite for food. He has been passing some gas, however not much. He had bowel movements yesterday, however none today. Vitals/I&O/Wt Last Vital Signs Temp 97.7 F 02/12/25 11:33 Pulse 65 02/12/25 11:33 Resp 15 02/12/25 11:33 BP 138/75 02/12/25 11:33 Pulse Ox 92 02/12/25 11:33 O2 Del Method Room Air 02/12/25 11:33 O2 Flow Rate 2 02/08/25 03:28 02/11/25 02/12/25 02/12/25 22:59 06:59 14:59 Intake Total 410 / 2060 930 / 2990 50 / 50 Output Total 1000 / 1000 Balance 410 / 0 - / 1989 50 / 50 Weight last 48 hrs Weight 240 lb 8 oz Weight 236 lb 11.2 oz Physical Exam 2 Narrative: General: Alert and oriented x 3. Uncomfortable due to pain. Eyes: PERRLA, EOM intact, no discharge. Mouth: No erythema or tonsilar enlargement. No masses noted. Moist mucous membranes. Neck: No thyromegaly. No lymphadenopathy. Heart: Regular rate and rhythm. No murmurs. Lungs: Clear to auscultation bilaterally. No wheezes, crackles or ronchi. Abdomen: Soft, mild to moderate tenderness in the epigastrium with mild diffuse pain and bloating in general. Absent bowel sounds on exam today. Extremities: No pitting edema. Data 02/12/25 03:03 02/12/25 03:03 Micro: Microbiology 02/08/25 17:20 Urine Culture - Final Urine,Clean Catch A&P Assessment and plan (1) Acute pancreatitis: The patient has acute pancreatitis and he was started to improve yesterday, however seems to be worsening today. The patient does not have any bowel sounds on exam and seems to be more bloated. We will have him decrease oral intake and if needed we will increase IV fluids. For now he seems to be euvolemic. Due to his increasing pain we will add morphine for pain control and recheck his lipase levels to be sure they are not increasing. If his pain continues to worsen, repeat CT scan may be necessary to check for complications. Currently he is not vomiting, however if he were to start having complications like this then an NG tube may be necessary. We will plan to check lipase levels daily to track his progress. (2) Systolic congestive heart failure: The patient had an ejection fraction of 45% and at this point cardiology feels that he is stable from a cardiac standpoint and can get an outpatient angiogram. If the patient gets chest pains again he is to notify us and cardiology can be contacted regarding this since they are consulted. (3) Dyspnea: The patient was more dyspneic overnight and we will check a chest x-ray to be sure that he is not having complications of a pleural effusion. Okay to use albuterol nebulizations if needed. PDMP PDMP Reviewed: Not Reviewed Attestations 2 Medical Necessity Statement*: The patient continues to have complications related to his pancreatitis and is stable across 2 midnights. Coding Level of Care Code Acute Code for [facility] Fwd Diagnoses Other acute pancreatitis, unspecified complication status K85.80 Acute pancreatitis complication: unspecified Pancreatitis type: other Acute systolic congestive heart failure I50.21 Heart failure chronicity: acute Dyspnea R06.00
[2025-02-12 12:36] LABS: Lipase 34 U/L (13-60)
[2025-02-12] MEDS: morphine 4 mg/mL SDV 1 mL 2 MG IVP ×3 (13:31→22:15)
--- NOTE | 2025-02-12 17:04 | P.PN_ITS ---
Subjective 2 Subjective: Patient had abdominal pain which went from front to back same pain when he had his peritoneal rest denies any radiation to chest arm or neck Vitals/I&O/Wt Last Vital Signs Temp 98.2 F 02/12/25 15:49 Pulse 67 02/12/25 15:49 Resp 16 02/12/25 15:49 BP 154/85 02/12/25 15:49 Pulse Ox 95 02/12/25 15:49 O2 Del Method Room Air 02/12/25 15:49 O2 Flow Rate 2 02/08/25 03:28 02/12/25 02/12/25 02/12/25 06:59 14:59 22:59 Intake Total 930 / 2990 1170 / 1170 50 / 1220 Output Total 1000 / 1000 Balance -1989 1170 / 1170 50 / 1220 Weight last 48 hrs Weight 240 lb 8 oz Weight 236 lb 11.2 oz Physical Exam 2 Const: OTHER: GENERAL: Patient is alert, awake and oriented x3. HEART: Regular S1 and S2. No murmur, rub or gallop. LUNGS: Clear to auscultate bilaterally. CENTRAL NERVOUS SYSTEM: Grossly nonfocal. EXTREMITIES: Lower extremities with out edema bilaterally. Data 02/12/25 03:03 02/12/25 03:03 A&P Assessment and plan (1) Systolic congestive heart failure: New onset etiology ischemic versus nonischemic (2) Essential hypertension: (3) Nausea & vomiting: (4) Acute pancreatitis: (5) Abdominal pain: Plan continue treatment of pancreatitis as per medicine Once pancreatitis resolve we will proceed with angiogram can be done as an outpatient Continue gentle IV fluid rehydration for renal improvement since patient continue be in compensated state of CHF Add beta-katie metoprolol succinate 12.5 mg once a day PDMP PDMP Reviewed: Not Reviewed Attestations 2 Medical Necessity Statement*: Patient require continuation of hospitalization for above defined care Coding Level of Care Code Acute Code for [facility] Fwd Diagnoses Acute systolic congestive heart failure I50.21 Heart failure chronicity: acute Essential hypertension I10 Nausea and vomiting, unspecified vomiting type R11.2 Vomiting type: unspecified Other acute pancreatitis, unspecified complication status K85.80 Acute pancreatitis complication: unspecified Pancreatitis type: other Generalized abdominal pain R10.84 Abdominal location: generalized
[2025-02-12] MEDS: sennosides 8.6 mg Tablet 17.2 MG PO (20:52)
[2025-02-13] VITALS (7 sets, daily range): BP systolic 135–164; BP diastolic 75–82; PULSE 53–69; RESP 14–19; TEMP 36.4–37; O2SAT 94–97
[2025-02-13 04:49] LABS: Alanine Aminotransferase 60 U/L (0-41); Alkaline Phosphatase 65 U/L (40-130); Anion Gap 16.4 (5-19); Aspartate Amino Transferase 22 U/L (0-40); Blood Urea Nitrogen 27 mg/dL (8-23); Calcium 7.7 mg/dL (8.5-10.5); Carbon Dioxide 19 mmol/L (22-29); Chloride 102 mmol/L (98-107); Creatinine Clr Calc Pharmacy 56.1455; Globulin 2.3 g/dL (1.3-4.6); Glomerular Filtration Rate 43.2 mL/min (90-130); Glucose 130 mg/dL (65-115); Lipase 77 U/L (13-60); Osmolality Calculated 283 mOsm/kg (285-295); Potassium 4.4 mmol/L (3.5-5.1); Sodium 133 mmol/L (136-145); Total Bilirubin 0.8 mg/dL (0.15-1.2); Total Protein 5.3 g/dL (6.6-8.7)
[2025-02-13] MEDS: methylPREDNISolone sod succ 40 mg/mL INJ IVP ×2 (04:49→13:37)
[2025-02-13] MEDS: piperacillin-tazobactam 3.375 GM in sodium chloride 0.9% (plus) 50 ML IV ×3 (04:49→20:35)
[2025-02-13 06:25] LABS: Basophils % 0.3 %; Eosinophils % 0.1 %; Hematocrit 39.8 % (37-53); Lymphocytes # 1.9 10^3/uL (0.8-4.8); Lymphocytes % 12.6 %; Mean Corpuscular HGB Conc 32.4 g/dL (30-55); Mean Corpuscular Hemoglobin 31.6 pg (27-33); Mean Corpuscular Volume 97.5 fl (82-101); Mean Platelet Volume 11.1 fL (7.4-10.4); Monocytes # 1.7 10^3/uL (0.2-0.9); Monocytes % 11.2 %; Neutrophils # 10.78 10^3/uL (1.8-7.7); Neutrophils % 73.4 %; Nucleated Red Blood Cells % 0 %; Platelet Count 141 10^3/cmm (157-399); Red Blood Count 4.08 10^6/uL (3.85-5.65); Red Cell Distribution Width 13.4 % (12.1-15.1)
[2025-02-13] MEDS: sodium chloride 0.9% 1,000 ML 100 ML IV (08:31)
--- NOTE | 2025-02-13 10:28 | P.PN_ITS ---
<Statement entered by Dequan Menon MD - 02/14/25 17:47> Patient was evaluated and cared for in conjunction with an advanced practice practitioner. I personally examined the patient and reviewed the chart and all pertinent data including imaging, telemetry, and laboratory results. I discussed the patient in detail with the advanced practice practitioner. Please see their note for complete H&P testing result and agreed upon plan of care for the patient. Subjective 2 Subjective: Creatinine has remained the same at 1.6. Patient is still getting fluids and appears well compensated without shortness of breath or signs of fluid overload. Vitals/I&O/Wt Last Vital Signs Temp 98.2 F 02/13/25 07:30 Pulse 60 02/13/25 08:27 Resp 18 02/13/25 08:27 BP 155/77 02/13/25 07:30 Pulse Ox 97 02/13/25 08:27 O2 Del Method Room Air 02/13/25 08:27 O2 Flow Rate 2 02/08/25 03:28 02/12/25 02/13/25 02/13/25 22:59 06:59 14:59 Intake Total 2228.333 / 3398.333 50 / 3448.333 1360 / 1360 Output Total 1200 / 1200 Balance 2228.333 / 3398.333 -1150 / 2248.333 1360 / 1360 Weight last 48 hrs Weight 238 lb 8 oz Weight 240 lb 8 oz Physical Exam 2 Narrative: General: No apparent distress, healthy appearing, well nourished HENMT: normoceophalic Muskuloskeletal: Full ROM Respiratory: Normal respiratory effort, clear to auscultation bilaterally throughout all lung quijano, no use of accessory muscles Cardio: No JVD, regular rate, regular rhythm, S1 S2 normal, no murmurs, peripheral pulses 2+ radial palpated bilaterally GI: Normal to inspection, nondistended Extremities: Full ROM, normal, normal capillary refill, no cyanosis or edema Neuro: Alert and oriented x4, no focal motor deficits Psych: Affect normal, denies suicidal ideation, mental status grossly normal Skin: No rashes or lesions noted, no wounds Data 02/13/25 04:10 02/13/25 04:10 A&P Assessment and plan (1) Systolic congestive heart failure: New onset etiology ischemic versus nonischemic (2) Essential hypertension: (3) Nausea & vomiting: (4) Acute pancreatitis: (5) Abdominal pain: Plan Continue treatment of pancreatitis as per medicine Once pancreatitis resolve we will proceed with angiogram can be done as an outpatient Continue gentle IV fluid rehydration for renal improvement since patient continue be in compensated state of CHF and monitor for s/s such as edema or increased shortness of breath Will hold off on beta katie at this time due to patient has low heart rate and bradycardia at times PDMP PDMP Reviewed: Not Reviewed Attestations 2 Medical Necessity Statement*: Deferred to primary Coding Level of Care Code Acute Code for [facility] Diagnoses Acute systolic congestive heart failure I50.21 Heart failure chronicity: acute Essential hypertension I10 Nausea and vomiting, unspecified vomiting type R11.2 Vomiting type: unspecified Other acute pancreatitis, unspecified complication status K85.80 Acute pancreatitis complication: unspecified Pancreatitis type: other Generalized abdominal pain R10.84 Abdominal location: generalized
--- NOTE | 2025-02-13 12:00 | PC.SOCIAL ---
IMM UPDATED IMM dated and initialed copy placed in chart and copy given to patient.
[2025-02-13 12:24] LABS: Vitamin B12 1162 pg/mL (232-1245)
[2025-02-13] MEDS: FUROsemide 10 mg/mL SDV 2mL 20 MG IVP (13:37)
--- NOTE | 2025-02-13 15:56 | P.PN_ITS ---
Subjective 2 Subjective: Hospital course, labs appreciated. Patient seen sitting comfortably in recliner. Seen with at bedside. Currently on clear liquid diet as per chart though has been eating donuts in the room. Denies any abdominal pain or nausea while eating. Does complain of mild abdominal fullness. Does complain of mild difficulty breathing today. Able to ambulate without difficulty in breathing. Vitals/I&O/Wt Last Vital Signs Temp 98.6 F 02/13/25 11:12 Pulse 55 L 02/13/25 11:12 Resp 18 02/13/25 11:12 BP 138/77 02/13/25 11:12 Pulse Ox 96 02/13/25 11:12 O2 Del Method Room Air 02/13/25 11:12 O2 Flow Rate 2 02/08/25 03:28 02/13/25 02/13/25 02/13/25 06:59 14:59 22:59 Intake Total 50 / 3448.333 1921.667 / 1921.667 Output Total 1200 / 1200 Balance -1150 / 2248.333 1921.667 / 1921.667 Weight last 48 hrs Weight 108.182 kg Weight 109.089 kg Physical Exam 2 Narrative: Generally: AO x3 HEENT normocephalic atraumatic Neck neck is supple Cardiovascular heart rate is regular Chest: Lungs clear to auscultation no wheezes no rhonchi. Normal S1, S2, Abdomen: soft, nontender to palpation. Improved with normal exam. unremarkable Extremities are intact, no edema has good pulses Data 02/13/25 04:10 02/13/25 04:10 A&P Assessment and plan (1) Acute pancreatitis: Abdominal pain nausea and vomiting secondary to acute pancreatitis Seems to be resolving. Stop IV fluids. Advance to soft mechanical diet as patient is already having donuts in room without any difficulty. Discussed in detail with patient regarding having multiple small meals. Protonix oral twice daily. Discontinue IV Protonix. Zofran as needed. (2) Systolic congestive heart failure: New diagnosis. Acute decompensated systolic congestive heart failure. Echocardiogram done shows an EF of 45%. Concern for possible nonischemic cardiomyopathy though ischemia has to be ruled out. Cardiology on board. Holding off on angiogram for now given ANNA. Most likely will need cardiac angiogram as an outpatient. Does have bradycardia so cannot add beta-katie. Creatinine elevated so we will hold off on starting JC/ARB/Arni. Fluid restriction 1500 cc. IV Lasix 20 mg one-time. Discontinue IV fluids. (3) ANNA (acute kidney injury): Most likely a combination of ANNA on CKD. Last creatinine prior to this admission was from September. Most likely a combination of NSAIDs along with systolic heart failure. Medical reconciliation done for nephrotoxic drugs. Monitor BMP daily. No electrode abnormality. IV fluid and Lasix as above. Plan Shortness of breath: Most likely setting of congestive heart failure. Remains on room air. Lasix as above. Wean Solu-Medrol 40 mg IV daily. Will plan for rapid taper as an outpatient. Full code Mechanical soft diet Protonix for PUD prophylaxis Lovenox for DVT prophylaxis PDMP PDMP Reviewed: Not Reviewed Attestations 2 Medical Necessity Statement*: Requires further hospitalization for management of acute alcoholic pancreatitis, acute new systolic congestive heart failure and ANNA Diagnoses Alcohol-induced acute pancreatitis, unspecified complication status K85.20 Acute pancreatitis complication: unspecified Pancreatitis type: alcohol induced Acute systolic congestive heart failure I50.21 Heart failure chronicity: acute ANNA (acute kidney injury) N17.9
[2025-02-13] MEDS: pantoprazole DR 40 mg Tablet PO (17:48)
[2025-02-14 04:00] VITALS: BP 172/88; PULSE 55; RESP 16; TEMP 36.4; O2SAT 96
[2025-02-14 04:42] VITALS: RESP 16
[2025-02-14] MEDS: oxyCODONE 5 mg IR Tab/Cap PO (04:42)
[2025-02-14] MEDS: piperacillin-tazobactam 3.375 GM in sodium chloride 0.9% (plus) 50 ML IV (04:42)
[2025-02-14 06:06] LABS: Basophils # 0.1 10^3/uL (0.0-0.1); Basophils % 0.4 %; Eosinophils # 0.1 10^3/uL (0.0-0.8); Eosinophils % 0.3 %; Lymphocytes % 9.5 %; Mean Corpuscular HGB Conc 33.3 g/dL (30-55); Mean Corpuscular Hemoglobin 31.7 pg (27-33); Mean Corpuscular Volume 95.4 fl (82-101); Mean Platelet Volume 10.2 fL (7.4-10.4); Monocytes # 1.7 10^3/uL (0.2-0.9); Monocytes % 8.2 %; Neutrophils # 16.23 10^3/uL (1.8-7.7); Neutrophils % 79.2 %; Nucleated Red Blood Cells % 0 %; Platelet Count 171 10^3/cmm (157-399); Red Blood Count 4.82 10^6/uL (3.85-5.65); Red Cell Distribution Width 12.9 % (12.1-15.1); White Blood Count 20.53 10^3/uL (3.29-11.43)
[2025-02-14 06:24] LABS: Alanine Aminotransferase 59 U/L (0-41); Albumin Level 3.1 g/dL (3.5-5.2); Alkaline Phosphatase 68 U/L (40-130); Anion Gap 15.8 (5-19); Aspartate Amino Transferase 23 U/L (0-40); Blood Urea Nitrogen 28 mg/dL (8-23); Calcium 8.5 mg/dL (8.5-10.5); Carbon Dioxide 23 mmol/L (22-29); Chloride 101 mmol/L (98-107); Globulin 2.8 g/dL (1.3-4.6); Glomerular Filtration Rate 46.5 mL/min (90-130); Glucose 145 mg/dL (65-115); Osmolality Calculated 290 mOsm/kg (285-295); Potassium 3.8 mmol/L (3.5-5.1); Sodium 136 mmol/L (136-145); Total Bilirubin 0.8 mg/dL (0.15-1.2); Total Protein 5.9 g/dL (6.6-8.7)
[2025-02-14 06:51] LABS: Folate Level 13.1 ng/mL (4.5-32.2)
[2025-02-14 07:29] VITALS: BP 153/92; PULSE 69; RESP 18; TEMP 36.6; O2SAT 93
--- NOTE | 2025-02-14 08:35 | PM.DCS ---
Discharge Providers Date of Admission: 02/07/25 21:14 Date of Discharge: February 14, 2025 Attending Provider at Admission: Flor Connors MD Attending Provider at Discharge: Juan Bernstein MD Consults: Cardiology: Dr. Menon Primary Care Provider: Rosmery Vargas MD Diagnoses at Discharge Discharge Diagnosis (1) Acute pancreatitis: Status: Acute Qualifiers: Acute pancreatitis complication: unspecified Pancreatitis type: alcohol induced Qualified Code(s): K85.20 - Alcohol induced acute pancreatitis without necrosis or infection (2) Systolic congestive heart failure: Status: Acute Qualifiers: Heart failure chronicity: acute Qualified Code(s): I50.21 - Acute systolic (congestive) heart failure (3) ANNA (acute kidney injury): Status: Acute Reason for Visit Reason for Visit: abd and back pain, n/v/d Brief History: History as per HPI: Curry Ross is a 69 year old male who consistently drink occasionally but heavily and had had history of severe pancreatitis in the past presented to the emergency room because of intractable nausea vomiting and diarrhea patient's wall that he will never drink again that this will be his last. Patient lipase is 5000 he is dry and dehydrated from GI losses with nausea and vomiting and diarrhea. Patient swot that the abdominal pain is very excruciating Imaging studies had shown edematous gallbladder ED staff had spoken to surgeon to make sure that this is not going to be a surgical issue and they were reassured that it is not. I have been called to see the patient I have seen patient and evaluated patient secondary to very excruciating pain and having nausea and vomiting at the time of my evaluation.. I discussed treatment care with the patient so he will understand. The mainstay of acute pancreatitis treatment judicious use IV fluid and pain management patient can have oral fluid if tolerated if not throwing up actually this seemed to make pancreatitis better. I will follow through with anti-inflammatory such as Toradol scheduled. Not to exceed 5 days and follow through with the as needed morphine as ordered. Hospital Course Hospital Course Patient was admitted to the hospital further evaluation and management of alcoholic pancreatitis. He was treated conservatively with bowel rest and IV hydration. During hospitalization there was a concern for congestive heart failure for which echocardiogram was done and he was found to have new EF of 45% with global LV hypokinesia. Patient was was continued on NSAIDs during hospitalization because of which he developed ANNA with creatinine peaking to 1.8. He was managed with managing fluid status and his creatinine improved to 1.5. Patient is able to tolerate full liquid diet with some solids on and off for last 48 to 72 hours. He has been discharged hemodynamically stable condition with advised to continue taking full liquid diet and advance gradually to softer diet in next 1 week to 10 days. He is to follow-up with cardiology as an outpatient for further evaluation and rule out ischemic etiology for cardiomyopathy. He should check his blood pressure daily at home maintain a blood pressure diary. Hydralazine has been added to his medication list for elevated blood pressures. Physical Exam Narrative: Generally: AO x3 HEENT normocephalic atraumatic Neck neck is supple Cardiovascular heart rate is regular Chest: Lungs clear to auscultation no wheezes no rhonchi. Normal S1, S2, Abdomen: soft, nontender to palpation. Improved with normal exam. unremarkable Extremities are intact, no edema has good pulses Discharge Data Studies Completed and Pending Completed Studies During Hospitalization Category Date Time Status CT abdomen pelvis w con* [id number] Stat Cat Scan 02/07/25 19:19 Completed CXRP [XR chest 1V portable [id number]] Stat Exams 02/08/25 17:09 Completed XR KUB portable [id number] Routine Exams 02/12/25 12:05 Completed XR chest 1V portable [id number] Routine Exams 02/09/25 12:05 Completed XR chest 1V portable [id number] Routine Exams 02/12/25 12:05 Completed MR MRCP [id number] Stat MRI 02/09/25 17:27 Completed CV. echo complete* [id number] Routine Ultrasound 02/09/25 12:05 Completed US gall bladder [id number] Stat Ultrasound 02/08/25 17:40 Completed Radiology Impressions Abdomen/Pelvis CT 02/07/25 19:19 IMPRESSION: 1. Exam demonstrates features of acute edematous pancreatitis. No evidence of pancreatic hemorrhage or necrosis. No biliary tree dilation. 2. There is gallbladder inflammatory change without biliary tree dilation or high-density stone. Findings could be passive in the setting of pancreatitis, but the pancreatic edema is not geographically contiguous with the gallbladder. Consider ultrasound to evaluate for underlying cholelithiasis and possible cholecystitis. 3. Fatty liver without enlargement. Spleen is normal in size. 4. Spinal stenosis at L3-L4 and L4-L5. Neural foraminal stenosis is noted bilaterally at L4-L5 and L5-S1. Correlate with symptoms of neurogenic claudication and/or radiculopathy. Gallbladder Ultrasound 02/08/25 17:40 IMPRESSION: As above. Cholangiopancreatography MRI 02/09/25 17:27 IMPRESSION: 1. Normal sized common bile duct. No intrahepatic duct dilatation. There is mild limitation as the patient was short of breath and there is motion artifact on this examination. 2. Normally distended gallbladder. 3. There is fluid adjacent to the gallbladder but this is diffuse fluid and not focal to the gallbladder from patient's known pancreatitis. 4. Edematous enlarged pancreas from pancreatitis. 5. Small bilateral pleural effusions, RIGHT greater than LEFT. Chest X-Ray 02/12/25 12:05 IMPRESSION: Left infrahilar/lower lung atelectasis/infiltrate suspected. KUB X-Ray 02/12/25 12:05 IMPRESSION: 1. No acute abdominal plain film findings. 2. If further discrimination is needed an upright plain film is suggested for consideration. Laboratory Results WBC 20.53 10^3/uL (3.29-11.43) H 02/14/25 05:58 RBC 4.82 10^6/uL (3.85-5.65) 02/14/25 05:58 Hgb 15.30 g/dL (11.27-16.99) 02/14/25 05:58 Hct 46.0 % (37-53) 02/14/25 05:58 MCV 95.4 fl (82-101) 02/14/25 05:58 MCH 31.7 pg (27-33) 02/14/25 05:58 MCHC 33.3 g/dL (30-55) 02/14/25 05:58 RDW 12.9 % (12.1-15.1) 02/14/25 05:58 Plt Count 171 10^3/cmm (157-399) 02/14/25 05:58 MPV 10.2 fL (7.4-10.4) 02/14/25 05:58 Neut % (Auto) 79.2 % 02/14/25 05:58 Lymph % (Auto) 9.5 % 02/14/25 05:58 Early % (Auto) 8.2 % 02/14/25 05:58 Eos % (Auto) 0.3 % 02/14/25 05:58 Baso % (Auto) 0.4 % 02/14/25 05:58 Neut # (Auto) 16.23 10^3/uL (1.8-7.7) H 02/14/25 05:58 Lymph # (Auto) 2.0 10^3/uL (0.8-4.8) 02/14/25 05:58 Early # (Auto) 1.7 10^3/uL (0.2-0.9) H 02/14/25 05:58 Eos # (Auto) 0.1 10^3/uL (0.0-0.8) 02/14/25 05:58 Baso # (Auto) 0.1 10^3/uL (0.0-0.1) 02/14/25 05:58 Nucleated RBC % (auto) 0 % 02/14/25 05:58 Nucleated RBCs # 0.0 /100WBC 02/14/25 05:58 Sodium 136 mmol/L (136-145) 02/14/25 05:58 Potassium 3.8 mmol/L (3.5-5.1) 02/14/25 05:58 Chloride 101 mmol/L (98-107) 02/14/25 05:58 Carbon Dioxide 23 mmol/L (22-29) 02/14/25 05:58 Anion Gap 15.8 (5-19) 02/14/25 05:58 BUN 28 mg/dL (8-23) H 02/14/25 05:58 Creatinine 1.5 mg/dL (0.7-1.2) H 02/14/25 05:58 GFR Calculation 46.5 mL/min (90-130) L 02/14/25 05:58 Glucose 145 mg/dL (65-115) H 02/14/25 05:58 Estimat Average Glucose 123 02/10/25 06:59 Hemoglobin A1c 5.9 % (4.0-6.0) 02/10/25 06:59 Calculated Osmolality 290 mOsm/kg (285-295) 02/14/25 05:58 Lactic Acid 2.0 mmol/L (0.5-2.2) 02/07/25 18:43 Calcium 8.5 mg/dL (8.5-10.5) 02/14/25 05:58 Phosphorus 3.0 mg/dL (2.5-4.5) 02/08/25 05:01 Magnesium 2.3 mg/dL (1.7-2.3) 02/12/25 03:03 Total Bilirubin 0.8 mg/dL (0.15-1.2) 02/14/25 05:58 Direct Bilirubin 0.70 mg/dL (0.00-0.30) H 02/08/25 18:33 AST 23 U/L (0-40) 02/14/25 05:58 ALT 59 U/L (0-41) H 02/14/25 05:58 Alkaline Phosphatase 68 U/L (40-130) 02/14/25 05:58 Troponin T 5th Gen ng/L 12 ng/L (0-15) 02/08/25 10:48 NT-Pro-B Natriuret Pep 1213 pg/mL (0-125) H 02/10/25 06:59 Total Protein 5.9 g/dL (6.6-8.7) L 02/14/25 05:58 Albumin 3.1 g/dL (3.5-5.2) L 02/14/25 05:58 Globulin 2.8 g/dL (1.3-4.6) 02/14/25 05:58 Triglycerides 360 mg/dL (0-150) H 02/10/25 06:59 Cholesterol 114 mg/dL (0-200) 02/10/25 06:59 LDL Cholesterol, Calc 32 mg/dL (50-129) L 02/10/25 06:59 Total VLDL Cholesterol 72 mg/dL (0-30) H 02/10/25 06:59 HDL Cholesterol 10 mg/dL (60-100) L 02/10/25 06:59 Cholesterol/HDL Ratio 11.40 mg/dL (1.0-5.00) H 02/10/25 06:59 Lipase 77 U/L (13-60) H 02/13/25 04:10 Vitamin B12 1162 pg/mL (232-1245) 02/13/25 04:10 Folate 13.1 ng/mL (4.5-32.2) 02/14/25 05:58 TSH 1.62 uIU/mL (0.27-4.20) 02/10/25 06:59 Urine Color Other (Yellow) A 02/08/25 17:20 Urine Appearance Turbid (CLEAR) A 02/08/25 17:20 Urine pH 5.0 (5-7) 02/08/25 17:20 Ur Specific [place] 1.037 (1.005-1.030) H 02/08/25 17:20 Urine Protein 3+ (Negative) A 02/08/25 17:20 Urine Glucose (UA) Trace (Normal) H 02/08/25 17:20 Urine Ketones Negative (Negative) 02/08/25 17:20 Urine Blood 3+ (Negative) A 02/08/25 17:20 Urine Nitrate Positive (Negative) A 02/08/25 17:20 Urine Bilirubin 2+ (Negative) H 02/08/25 17:20 Urine Urobilinogen 1.0 mg/dL (Negative) 02/08/25 17:20 Ur Leukocyte Esterase 2+ (Negative) A 02/08/25 17:20 Urine RBC 50-80 /hpf (0-2) H 02/08/25 17:20 Urine WBC 10-15 /hpf (0-5) H 02/08/25 17:20 Ur Squamous Epith Cells 6-10 /hpf (0-5) 02/08/25 17:20 Amorphous Sediment Not Reportable 02/08/25 17:20 Urine Bacteria 1+ /hpf (NONE) H 02/08/25 17:20 Hyaline Casts 5.24 /lpf 02/08/25 17:20 Urine Yeast 2+ /hpf H 02/08/25 17:20 Urine Opiates Screen Negative ng/mL (Negative) 02/07/25 18:42 Ur Barbiturates Screen Negative ng/mL (Negative) 02/07/25 18:42 Ur Phencyclidine Scrn Negative ng/mL (Negative) 02/07/25 18:42 Ur Amphetamines Screen Negative ng/mL (Negative) 02/07/25 18:42 U Benzodiazepines Scrn Negative ng/mL (Negative) 02/07/25 18:42 Urine Cocaine Screen Negative ng/mL (Negative) 02/07/25 18:42 U Marijuana (THC) Screen Negative ng/mL (Negative) 02/07/25 18:42 Ethyl Alcohol < 10 mg/dL (0-10) 02/07/25 18:43 Vitals Last Vital Signs Temp 97.8 F 02/14/25 07:29 Pulse 69 02/14/25 07:29 Resp 18 02/14/25 07:29 BP 153/92 02/14/25 07:29 Pulse Ox 93 02/14/25 07:29 O2 Del Method Room Air 02/14/25 07:29 O2 Flow Rate 2 02/08/25 03:28 Discharge Plan Discharge Patient Disposition: Home Condition: Stable Prescriptions: New pantoprazole 40 mg Tablet,Delayed Release (Dr/Ec) 40 mg PO BID 30 Days Qty: 60 0RF furosemide [Lasix] 20 mg tablet 20 mg PO QAM Qty: 30 0RF hydralazine 25 mg tablet 25 mg PO TID Qty: 90 0RF ondansetron 4 mg tablet,disintegrating 4 mg PO Q8H 5 Days Qty: 15 0RF tramadol 50 mg tablet 50 mg PO BID PRN (Reason: pain) Qty: 10 0RF Continued aspirin 81 mg Tablet,Delayed Release (Dr/Ec) 81 mg PO QAM ascorbic acid (vitamin C) [Vitamin C] 500 mg Tablet 500 mg PO QAM magnesium oxide 400 mg magnesium Tablet 400 mg PO QAM timolol maleate 0.5 % drops 1 drp ophthalmic (eye) BID cholecalciferol (vitamin D3) [Vitamin D3] 50 mcg (2,000 unit) Tablet 50 mcg PO DAILY Discontinued omeprazole 20 mg capsule,delayed release(DR/EC) 20 mg PO QAM Qty: 90 3RF naproxen 500 mg tablet 500 mg PO BID PRN (Reason: Pain) Discharge Orders: Discharge Order (Routine); Ordered 02/14/25 Ordered By: Juan Bernstein Referrals: Crisis [facility] [Other] Referral Note: [phone] 7 days/week 8am-6pm We have notified your physician's clinic of the need for a follow-up appointment to be scheduled. If you have not heard from them within the next 2 business days, please call them directly. [facility] [Outside] Referral Note: ? Follow up as a walk in at [facility], walk in hours are Thursday-Thursday from 7:30AM-3:00PM, first come, first seen. Once you do this assessment you will be referred for appropriate services. Rosmery Vargas MD [Primary Care Provider, Family Practice] - 03/03/25 1:30 pm Florina Bradley FNP [Nurse Practitioner, Cardiology] - 02/23/25 2:30 pm Discharge Diet: Advance as tolerated, Cardiac and Soft Mechanical Discharge Activity: Resume usual activity and Increase activity as tolerated Patient Instructions: Furosemide (By mouth) (Lasix), Hydralazine (By mouth) (Apresoline), Pantoprazole (By mouth) (Protonix), Heart Failure (DC), Pancreatitis (DC), Dehydration (DC), Acute Kidney Injury (DC), CHF Stoplight, Opioid Safety Activity Restrictions/Additional Instructions: Restrict fluid intake to less than 1500 cc, salt intake to less than 2 g daily. Advised to check his weight daily at home. Is advised that weight today would be the dry weight and if body weight increases by around 5 pounds, patient is to take an extra dose of Lasix daily till body weight comes down to weight today. If not able to come down to dry body weight in 1 week, then is to call cardiology office for further recommendations. Patient was counseled in detail to take medications regularly as prescribed. Check your blood pressure daily at home and maintain a blood pressure diary. Your goal blood pressure is less than 140/90 mmHg. Take hydralazine 25 mg 3 times a day for high blood pressures. Follow-up with cardiology team in their office within next 1 week for further evaluation and management of new heart failure. Continue mechanical soft cardiac diet for next 2 weeks and then advance gradually to a regular diet. Please try to avoid alcohol use completely. Discharge Attestations Time Spent in Discharge Care*: greater than 30 min Specific Discharge Activities: educating patient, educating and/or supporting family/caregiver, discussing with pcp/other providers, discussing with case advocate/social workers/dc planners, documenting/other paperwork and evaluating patient/reviewing data Status at Discharge: Cognitive status at discharge: cognitively intact, Behavioral status at discharge: cooperative, Functional status at discharge: independent ambulation, Overall status at discharge: patient is back to baseline Quality Metrics Clinical Quality Measures [ No reported AMI, CVA or VTE this stay] Coding Level of Care Code 31380 Total time (in minutes) for Discharge: 65 Diagnoses Alcohol-induced acute pancreatitis, unspecified complication status K85.20 Acute pancreatitis complication: unspecified Pancreatitis type: alcohol induced Acute systolic congestive heart failure I50.21 Heart failure chronicity: acute ANNA (acute kidney injury) N17.9
[2025-02-14] MEDS: pantoprazole DR 40 mg Tablet PO (09:37)
[2025-02-14] MEDS: enoxaparin 40 mg/0.4 mL Syringe SUBCUT (09:37)
[2025-02-14] MEDS: docusate sodium 100 mg Capsule PO (09:37)
[2025-02-14] MEDS: methylPREDNISolone sod succ 40 mg/mL INJ IVP (09:38)
[2025-02-14] MEDS: albuterol 2.5 mg/3 mL Neb INHALATION (09:55)
[2025-02-14 09:58] VITALS: PULSE 73; RESP 18; O2SAT 98
--- NOTE | 2025-02-14 11:04 | P.PN_ITS ---
<Statement entered by Dequan Menon MD - 02/14/25 17:31> Patient was evaluated and cared for in conjunction with an advanced practice practitioner. I personally examined the patient and reviewed the chart and all pertinent data including imaging, telemetry, and laboratory results. I discussed the patient in detail with the advanced practice practitioner. Please see their note for complete H&P testing result and agreed upon plan of care for the patient. Patient says he is feeling much better but like to go home GENERAL: Patient is alert, awake and oriented x3. HEART: Regular S1 and S2. No murmur, rub or gallop. LUNGS: Clear to auscultate bilaterally. CENTRAL NERVOUS SYSTEM: Grossly nonfocal. EXTREMITIES: Lower extremities with out edema bilaterally. Assessment and plan New onset of heart failure well compensated Moderately depressed left ventricle ejection fraction 45 to Pancreatitis active Acute kidney injury Given the nature of active pancreatitis and underlying kidney injury left heart cath for now was postponed since patient does not have any active chest pain or arrhythmia, we require left heart cath or stress test to differentiate between ischemic versus nonischemic cardiomyopathy. I have detailed discussion with the patient and given him idea of Lexiscan MIBI stress test before discharge but patient would like to go home and he think he will do left heart cath as an outpatient. He clearly understand risk of dying suddenly arrhythmia heart attack, he understand that left heart cath was not performed here because underlying active pancreatitis and acute kidney injury since he is not symptomatic cardiac stout. We will follow him up in the clinic and plan for left heart cath as an outpatien once renal function will improve and acute pancreatitis is resolved. Advised of sedation of the alcohol. Add beta-katie metoprolol Add low-dose diuretics aspirin And statin Follow-up with cardiology in 10 days Subjective 2 Subjective: Saw patient today. He was still having abdominal pain. Patient's family was concerned about patient leaving the hospital with his heart condition. Creatinine stable at 1.5. Vitals/I&O/Wt Last Vital Signs Temp 97.8 F 02/14/25 07:29 Pulse 73 02/14/25 09:58 Resp 18 02/14/25 09:58 BP 153/92 02/14/25 07:29 Pulse Ox 98 02/14/25 09:58 O2 Del Method Room Air 02/14/25 09:58 O2 Flow Rate 2 02/08/25 03:28 02/13/25 02/14/25 02/14/25 22:59 06:59 14:59 Intake Total 290 / 2211.667 50 / 2261.667 Output Total 760 / 760 Balance 290 / 2211.667 -710 / 1501.667 Weight last 48 hrs Weight 238 lb Weight 238 lb 8 oz Physical Exam 2 Narrative: General: No apparent distress, healthy appearing, well nourished HENMT: normoceophalic Muskuloskeletal: Full ROM Respiratory: Normal respiratory effort, clear to auscultation bilaterally throughout all lung quijano, no use of accessory muscles Cardio: No JVD, regular rate, regular rhythm, S1 S2 normal, no murmurs, peripheral pulses 2+ radial palpated bilaterally GI: Normal to inspection, nondistended Extremities: Full ROM, normal, normal capillary refill, no cyanosis or edema Neuro: Alert and oriented x4, no focal motor deficits Psych: Affect normal, denies suicidal ideation, mental status grossly normal Skin: No rashes or lesions noted, no wounds Data 02/14/25 05:58 02/14/25 05:58 A&P Assessment and plan (1) Systolic congestive heart failure: New onset etiology ischemic versus nonischemic (2) Essential hypertension: (3) Nausea & vomiting: (4) Acute pancreatitis: (5) Abdominal pain: Plan At this time we discussed with the patient at least getting a stress test prior to leaving the hospital. Patient does not want to do a stress test. He wants to go home. At this time he would like to follow-up with us in the clinic in 2 weeks and once patient has recovered and creatinine is back down to baseline may proceed with angiogram. At this time would recommend beta-katie metoprolol succinate for heart failure management. Once patient recovers can add further goal-directed medical therapy. He was educated to go to the ER immediately with any signs or symptoms of chest pain or increased shortness of breath. PDMP PDMP Reviewed: Not Reviewed Attestations 2 Medical Necessity Statement*: Deferred to primary Coding Level of Care Code Acute Code for g Fwd Diagnoses Acute systolic congestive heart failure I50.21 Heart failure chronicity: acute Essential hypertension I10 Nausea and vomiting, unspecified vomiting type R11.2 Vomiting type: unspecified Alcohol-induced acute pancreatitis, unspecified complication status K85.20 Acute pancreatitis complication: unspecified Pancreatitis type: alcohol induced Generalized abdominal pain R10.84 Abdominal location: generalized
[2025-02-14 11:26] VITALS: BP 164/77; PULSE 74; RESP 16; TEMP 36.6; O2SAT 91
[2025-02-14 12:01] VITALS: BP 164/77; PULSE 74; RESP 16; TEMP 36.6; O2SAT 91
--- NOTE | 2025-02-14 13:41 | PC.NURSE ---
Discussed discharge with patient and spouse. Went over restrictions, 1500cc/ml fluid restrictions, 2 gm sodium diet, new medications, gave script for tramadol and went over stopped medications. Other scripts went to family pharmacy in [place]. Patient and spouse verbalized understanding.
== END 2025-02-14 12:40 | disposition home or self-care (01) | DRG 438 ==
LOC: ER 21:23 → MEDSURG 21:44
PROVIDERS: Family Medicine; Internal Medicine; Admitting Provider Internal Medicine; Emergency Provider Emergency Medicine; PCP Family Medicine; Visit Provider Student in an Organized Health Care Education/Training Program
DX: K85.20 Alcohol induced acute pancreatitis without necrosis or infection (principal); I50.23 Acute on chronic systolic (congestive) heart failure; N17.9 Acute kidney failure, unspecified; I42.8 Other cardiomyopathies; F10.10 Alcohol abuse, uncomplicated; I11.0 Hypertensive heart disease with heart failure; E86.0 Dehydration; M19.90 Unspecified osteoarthritis, unspecified site; G89.29 Other chronic pain; M54.42 Lumbago with sciatica, left side; K21.9 Gastro-esophageal reflux disease without esophagitis; T38.0X5A Adverse effect of glucocorticoids and synthetic analogues, initial encounter; Z77.22 Contact with and (suspected) exposure to environmental tobacco smoke (acute) (chronic); R07.9 Chest pain, unspecified; Z79.82 Long term (current) use of aspirin; Z82.49 Family history of ischemic heart disease and other diseases of the circulatory system; Z82.41 Family history of sudden cardiac death
CPT/HCPCS: 36415; 71045; 74018; 74177; 74181; 76705; 80048; 80053; 80061; 80306; 80307; 81001; 82150; 82248; 82607; 82746; 83036; 83605; 83690; 83735; 83880; 84100; 84443; 84484; 85025; 87086; 93005; 93306; 94640; 96372; 96374; 96375; 96376; 99285; J1171; J1650; J1885; J1938; J2270; J2405; J2470; J2543; J2919; J7030; J7613; J9999

== ENCOUNTER → 2025-02-23 14:29 | Outpatient (BNVA) | payer MEDICARE, SELFPAY | PROVIDERS: PCP Family Medicine; Visit Provider Nurse Practitioner Family | DX: K85.20 Alcohol induced acute pancreatitis without necrosis or infection (principal); I50.21 Acute systolic (congestive) heart failure; N17.9 Acute kidney failure, unspecified; Z09 Encounter for follow-up examination after completed treatment for conditions other than malignant neoplasm; Z79.82 Long term (current) use of aspirin | CPT/HCPCS: 36415; 80048; 83880; 85025; 99214 ==

== ENCOUNTER → 2025-02-28 12:03 | Outpatient (BNVA) | payer MEDICARE, SELFPAY | PROVIDERS: PCP Family Medicine; Visit Provider Family Medicine | DX: I50.21 Acute systolic (congestive) heart failure (principal); I10 Essential (primary) hypertension; K85.20 Alcohol induced acute pancreatitis without necrosis or infection; N17.9 Acute kidney failure, unspecified; E86.0 Dehydration | CPT/HCPCS: 80053; 83690; 83880 ==

== ENCOUNTER → 2025-03-06 09:54 | Outpatient (BNVA) | payer MEDICARE, SELFPAY | PROVIDERS: PCP Family Medicine; Visit Provider Family Medicine | DX: I50.21 Acute systolic (congestive) heart failure (principal); K85.20 Alcohol induced acute pancreatitis without necrosis or infection; N17.9 Acute kidney failure, unspecified; E86.0 Dehydration | CPT/HCPCS: 80048; 83690; 83880 ==

== ENCOUNTER → 2025-03-21 09:47 | Outpatient (BNVA) | payer MEDICARE, SELFPAY | PROVIDERS: PCP Family Medicine; Visit Provider Family Medicine | DX: K76.0 Fatty (change of) liver, not elsewhere classified (principal); K85.20 Alcohol induced acute pancreatitis without necrosis or infection; R10.84 Generalized abdominal pain; N17.9 Acute kidney failure, unspecified | CPT/HCPCS: 80053; 83690 ==

== ENCOUNTER → 2025-04-24 09:35 | Outpatient (BNVA) | payer MEDICARE, SELFPAY | PROVIDERS: PCP Family Medicine; Visit Provider Family Medicine | DX: I50.21 Acute systolic (congestive) heart failure (principal); I11.0 Hypertensive heart disease with heart failure; K85.20 Alcohol induced acute pancreatitis without necrosis or infection | CPT/HCPCS: 80053; 83690; 83880; 85025 ==

== ENCOUNTER → 2025-05-30 13:20 | Outpatient (BNVA) | payer MEDICARE, SELFPAY | PROVIDERS: PCP Family Medicine; Visit Provider Internal Medicine Cardiovascular Disease | DX: I50.20 Unspecified systolic (congestive) heart failure (principal); I42.8 Other cardiomyopathies; K85.90 Acute pancreatitis without necrosis or infection, unspecified | CPT/HCPCS: 99214 ==

== ENCOUNTER 2025-06-06 09:30 | Outpatient (CLI) | payer MEDICARE, SELFPAY ==
--- NOTE | 2025-06-06 | ECG_ITS ---
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 Interpretive Statements Lung unchanged pre/post procedure; Intraprocedure shortess of breath; Symptoms resoled by discharge PROCEDURE: At the baseline, the EKG revealed sinus bradycardia with nonspecific T wave changes.. The baseline heart was 55 bpm with a blood pressue of 138/79 mm of Hg Lexiscan was infused over a period of 20 seconds. A total of 0.4 milligrams of Lexiscan was infused. The stress phase was continued for a total of 5 minutes. Heart rate at the end of the stress phase was 77 bpm with a blood pressure 129/75 mm of Hg. The EKG at the peak infusion revealed no significant changes. Sestamibi was injected 20 seconds after the Lexiscan infusion. Heart rate at the end of the recovery phase was 75 bpm with a blood pressure of 127/78 mm of Hg. CONCLUSION: 1. No significant EKG changes with the LexiScan infusion 2. No LexiScan induced chest pain or cardiac arrhythmia 3. Normal blood pressure and heart rate response 4. Sestamibi/sestamibi perfusion scan pending; see separate report. Electronically Signed On 06-06-2025 22:29:37 CDT by Juventino Lowery M.D. [email or web address]
[2025-06-06 09:39] VITALS: BMI 28.5
--- NOTE | 2025-06-06 09:49 | NMCV_ITS ---
NM adrienne perf SPECT r/s* [id number] Curry Ross Age: 70 Gender: M : 1955 Exam Date: 06/06/2025 10:46 Ordering Phys: Dequan Menon MD ([email or web address]) Technologist: TIERRA Armstrong Exam Location: [facility] Indications: CP STRESS TEST Please see separate stress test report in [facility] for full findings IMAGE PROTOCOL Rest/Stress 1 Lexiscan Day Radiopharmaceutical Dose (mCi) Administration Site Administered by Rest: Tc-99m 10.7 IV Noris Cullen, SLIDE FASTENERS INSPECTOR Sestamibi Stress:Tc-99m 32.7 IV Noris Mcfaddengle, SLIDE FASTENERS INSPECTOR Sestamibi Rest: 06-Jun-2025 60 Discovery 630 Stress: 06-Jun-2025 30 Discovery 630 0.4mg Lexiscan. Images obtained in supine and prone position. SPECT RESULTS Technical Quality: Good Raw Data Analysis: Normal Image Corrections: No attenuation or motion correction applied Summed Stress Score: 5 Summed Rest Score: 6 Summed Difference Score: 1 PERFUSION FINDINGS Small to moderate area of minimal to moderately decreased tracer uptake involving the basal and mid inferior and mid inferoseptal segments. Slight reversibility was noted in the mid inferoseptal region compared with the supine imaging. However with the prone imaging no significant reversible defects are noted FUNCTIONAL RESULTS (calculated via Gated SPECT) Stress Image LV EF (%): 35 Stress EDV (mL):162 TID: 1.18 Stress ESV (mL):105 FUNCTIONAL FINDINGS: Segmental wall motion analysis revealing diffuse hypokinesis of the left ventricle. The transient ischemic motion dilatation ratio was found to be elevated, 1.18 IMPRESSIONS 1. Myocardial perfusion imaging revealing small to moderate area of minimal to moderate decrease tracer uptake with a slight reversibility suggesting myocardial scarring with ischemia in the distribution of the right coronary artery. However because of the inconsistency with the prone imaging, the reliability is questionable. 2. Moderately decreased LV ejection fraction of 35% 3. Diffuse hypokinesis the left ventricle 4. Moderately dilated LV cavity with an end-systolic volume of 105 mL Slightly elevated transischemic dilatation ratio 1.18 may assess endocardial ischemia. Clinical correlation recommended. Dr Juventino Lowery MD FACC (Electronically Signed) Final Date: 06 June 2025 14:31 S
[2025-06-06 11:27] VITALS: BP 127/78; PULSE 77
== END 2025-06-06 09:31 | disposition home or self-care (01) ==
PROVIDERS: PCP Family Medicine; Visit Provider Internal Medicine Cardiovascular Disease
DX: R07.9 Chest pain, unspecified (principal); R06.02 Shortness of breath; I51.89 Other ill-defined heart diseases
CPT/HCPCS: 36415; 78452; 93017; 96374; A9500; J2785

== ENCOUNTER 2025-06-16 06:15 | Outpatient (CLI) | payer MEDICARE, SELFPAY ==
--- NOTE | 2025-06-16 06:30 | USCV_ITS ---
Curry Ross Age: 70 Gender: M : 1955 Exam Date: 06/16/2025 06:42 Ordering Phys: Dequan Menon MD ([email or web address]) Technologist: KRYSTIAN Exam Location: [facility] – [place] Indication: CP, SoB BP: 128 / 74 HR: 52 Rhythm: Sinus Technical Quality: Adequate MEASUREMENTS (Male / Female) Normal Values 2D ECHO LV Diastolic Diameter PLAX 6.4 cm 4.2 - 5.9 / 3.9 - 5.3 cm IVS Diastolic Thickness 0.8 cm 0.6 - 1.0 / 0.6 - 0.9 cm IVS Systolic Thickness 1.4 cm LVPW Diastolic Thickness 1.5 cm 0.6 - 1.0 / 0.6 - 0.9 cm LVPW Systolic Thickness 1.5 cm LVOT Diameter 2.0 cm LV Ejection Fraction 2D Teich 42.1 % LV Ejection Fraction MOD 4C 40.5 % LV Ejection Fraction MOD 2C 34.9 % LV Ejection Fraction 2C AL 38.1 % LA Diameter 3.7 cm RA Systolic Volume 4C AL 30.4 ml RA Systolic Volume 4C MOD 24.8 ml LA Sys Volume AL 62.6 cm cubed LA Sys Volume Index AL 28.1 cm cubed/m squared Aorta at Sinotubular Diameter 3.2 cm M-MODE LA Ao Ratio MM 1.0 AV Cusp Separation MM 1.8 cm DOPPLER AV Peak Velocity 164.0 cm/s LVOT Peak Velocity 60.0 cm/s AV Area Cont Eq vti 1.6 cm squared AV Area Cont Eq pk 1.2 cm squared MV Peak Velocity 82.0 cm/s MV Area PHT 3.1 cm squared Mitral E to A Ratio 0.7 TR Peak Velocity 114.0 cm/s TR Peak Gradient 5.2 mmHg TV Peak E Velocity 72.0 cm/s PV Peak Velocity 98.0 cm/s FINDINGS Left Ventricle Moderately increased left ventricular cavity size. Moderately decreased left ventricular systolic function. Left ventricular ejection fraction is estimated at 40 %. Global left ventricular hypokinesis. Grade I/IV diastolic dysfunction (abnormal relaxation filling pattern), normal to mildly elevated filling pressures. Right Ventricle Normal right ventricular size and systolic function. Right Atrium Normal right atrial size. Left Atrium Normal left atrial size. IA Septum Normal appearance of the interatrial septum. Mitral Valve Mildly thickened mitral valve. No mitral valve stenosis. Trace mitral valve regurgitation. Aortic Valve Moderate aortic valve calcification. No aortic valve stenosis. Mild aortic valve regurgitation. Tricuspid Valve Normal tricuspid valve structure. No tricuspid valve stenosis or regurgitation. Normal pulmonary pressure. Pulmonic Valve Normal pulmonic valve structure. No pulmonic valve stenosis or regurgitation. Pericardium No pericardial effusion. Aorta Normal diameter of the aortic root and ascending thoracic aorta. IVC Normal IVC diameter. CONCLUSIONS Moderately increased left ventricular cavity size. Moderately decreased left ventricular systolic function. Left ventricular ejection fraction is estimated at 40 %. Global left ventricular hypokinesis. Grade I/IV diastolic dysfunction (abnormal relaxation filling pattern), normal to mildly elevated filling pressures. Moderate aortic valve calcification. No aortic valve stenosis. Mild aortic valve regurgitation. There is no pericardial effusion. Right atrial pressure is around 10 mm of mercury. Dequan Menon MD (Electronically Signed) Final Date: 26 June 2025 19:47 S
== END 2025-06-16 06:16 | disposition home or self-care (01) ==
LOC: RAD 06:17
PROVIDERS: PCP Family Medicine; Visit Provider Internal Medicine Cardiovascular Disease
DX: R07.9 Chest pain, unspecified (principal); R06.02 Shortness of breath; I51.7 Cardiomegaly; R93.1 Abnormal findings on diagnostic imaging of heart and coronary circulation; I51.89 Other ill-defined heart diseases; I05.9 Rheumatic mitral valve disease, unspecified; I35.8 Other nonrheumatic aortic valve disorders; I35.1 Nonrheumatic aortic (valve) insufficiency
CPT/HCPCS: 93306

== ENCOUNTER 2025-07-03 07:25 | Outpatient (CLI) | payer MEDICARE, SELFPAY ==
[2025-07-03] VITALS (7 sets, daily range): BP systolic 116–159; BP diastolic 68–89; PULSE 51–114; RESP 14–20; TEMP 36.4–36.6; O2SAT 95–99; BMI 29.4
[2025-07-03 07:51] LABS: Hematocrit 47.0 % (37-53); Hemoglobin 15.90 g/dL (11.27-16.99); Mean Corpuscular HGB Conc 33.8 g/dL (30-55); Mean Corpuscular Hemoglobin 32.2 pg (27-33); Mean Corpuscular Volume 95.1 fl (82-101); Nucleated Red Blood Cells % 0 %; Platelet Count 174 10^3/cmm (157-399); Red Blood Count 4.94 10^6/uL (3.85-5.65); White Blood Count 7.29 10^3/uL (3.29-11.43)
[2025-07-03 08:12] LABS: Anion Gap 16.2 (5-19); Blood Urea Nitrogen 21 mg/dL (8-23); Calcium 9.7 mg/dL (8.5-10.5); Carbon Dioxide 25 mmol/L (22-29); Chloride 102 mmol/L (98-107); Creatinine Clr Calc Pharmacy 47.0769; Glucose 101 mg/dL (65-115); Osmolality Calculated 291 mOsm/kg (285-295); Potassium 4.2 mmol/L (3.5-5.1); Sodium 139 mmol/L (136-145)
--- NOTE | 2025-07-03 10:13 | P.HP_ITS ---
<Statement entered by Dequan Menon MD - 07/05/25 18:52> Patient was evaluated and cared for in conjunction with an advanced practice practitioner. I personally examined the patient and reviewed the chart and all pertinent data including imaging, telemetry, and laboratory results. I discussed the patient in detail with the advanced practice practitioner. Please see their note for complete H&P testing result and agreed upon plan of care for the patient. 70-year-old male past medical history significant for alcohol abuse pancreatitis for worsening of LV dysfunction and new onset of heart failure with ejection fraction 40% while in the hospital underwent stress test which showed no significant ischemia but scarring. His medications were optimized and sent home because he has underlying chronic kidney disease however patient was complaining of worsening of chest pain or shortness of breath it is the reason we suggested to further explore with left heart cath, patient came in today to the hospital for that very reason he was noted to be in acute on chronic kidney disease with creatinine of 1.8 he was admitted overnight for precath preparation IV hydration for acute on chronic kidney disease treatment improvement. GENERAL: Patient is alert, awake and oriented x3. HEART: Regular S1 and S2. No murmur, rub or gallop. LUNGS: Clear to auscultate bilaterally. CENTRAL NERVOUS SYSTEM: Grossly nonfocal. EXTREMITIES: Lower extremities with out edema bilaterally. Assessment and plan Acute on chronic kidney disease New onset of heart failure New onset of moderately depressed left ventricle ejection fraction 40% History of alcohol abuse IV hydration overnight once creatinine improved proceed with left heart cath Continue rest of medications Providers/Chief Complaint 2 Primary Care Provider: Rosmery Vargas MD Chief Complaint: I51.9 History of Present Illness Curry Ross is a 70 year old male with past medical history of nonischemic cardiomyopathy, recently admitted to the hospital in February with heart failure and pancreatitis. Due to the acute pancreatitis, coronary angiogram was deferred. He underwent echocardiogram and Lexiscan stress test, which was abnormal, with new decrease in LV function down to 40%. He presented today for coronary angiogram was found to be in renal failure, creatinine 1.8, admitted to the hospital for IV hydration. Once he has had adequate hydration with IV fluids will recheck creatinine and plan for coronary angiogram in 1 to 2 days. Review of Systems 2 Const: Denies: fever(s), chills, change in weight, fatigue or diaphoresis Eyes: Denies: change in vision ENMT: Denies: epistaxis Card: Denies: chest pain, palpitations, irregular heart rhythm, edema, syncope, pre-syncope, dyspnea on exertion, orthopnea or leg pain with exertion Resp: Denies: dyspnea, productive cough or wheezing GI: Denies: nausea, vomiting, hematemesis, hematochezia or melena : Denies: hematuria Musc: Denies: extremity swelling Jatinder/Lymph: Denies: easy bruising or easy bleeding Medications/Allergies Home Medications ?Medication ?Instructions ?Recorded ?Confirmed ?Last Taken ?Type aspirin 81 mg tablet,delayed 81 mg PO QAM 12/16/2107/03/25 06:30 History release timolol maleate 0.5 % eye drops 1 drp ophthalmic (eye) BID 02/08/25 06/30/25 07/03/25 06:30 History pantoprazole 40 mg tablet,delayed 40 mg PO QAM #90 tab s 03/21/25 06/30/25 07/03/25 06:30 Rx release Allergies Allergy/AdvReac Type Severity Reaction Status Date / Time No Known Allergies Allergy Verified 06/26/25 14:29 PFSH Acute 2 PFSH: Medical History Acute systolic congestive heart failure EF 45% on ECHO during pancreatitis admit Alcohol-induced pancreatitis Asymptomatic PVCs Varicose veins of both legs with edema Metabolic dysfunction-associated steatotic liver disease (MASLD) Fasting hyperglycemia Chronic thoracic back pain old T8 compressioin fx Cervical spondylarthritis Hx of compression fracture of spine T8 on imaging Low HDL (under 40) Osteoarthritis (arthritis due to wear and tear of joints) Chronic low back pain with left-sided sciatica Chronic GERD without esophagitis Surgical History Hx of esophagogastroduodenoscopy 4.1.19 Hx of colon[facility] 5.7.18 [facility] repeat 10 yrs Family History Father CAD (coronary artery disease) Cancer Melanoma Mother No problems noted. Social History Smoking and tobacco/nicotine status: never used tobacco/nicotine Alcohol intake: former Former alcohol use details: quit 2024 with pancreatitis Substance/Drug Use: never Household members: spouse Marital status: Number of children: 3 Highest education level completed: High School Graduate Current occupational status: retired Previous occupational history: [employer] Vitals/I&O/Wt Last Vital Signs Temp 97.8 F 07/03/25 07:56 Pulse 57 L 07/03/25 07:56 Resp 16 07/03/25 07:56 BP 159/89 07/03/25 07:56 Pulse Ox 97 07/03/25 07:56 O2 Del Method Room Air 07/03/25 07:56 Weight last 48 hrs Weight 217 lb Physical Exam 2 Const: COMMON NORMALS: no acute distress and patient oriented x3 GENERAL APPEARANCE: cooperative and comfortable ORIENTATION/CONSCIOUSNESS: Yes awake, Yes oriented to person, Yes oriented to place and Yes oriented to time Chest: COMMONS NORMALS: normal inspection of the chest and normal palpation of entire chest wall CHEST: Yes Symmetrical chest wall rise Resp: COMMON NORMALS: normal respiratory effort, No retractions, No use of accessory muscles and clear to auscultation bilaterally EFFORT & INSPECTION: Yes symmetric chest movement AUSCULTATION: clear to auscultation bilaterally Cardio: COMMON NORMALS: regular rate, regular rhythm, S1 normal heart sound present, S2 normal heart sound present, No gallops present (Cardio), No clicks present (Cardio), No murmurs present (Cardio) and No rub (Cardio) RATE: r egular rate RHYTHM: regular rhythm HEART SOUNDS: S1 normal heart sound present and S2 normal heart sound present PERIPHERAL PULSES: radial pulses present Extremity: COMMON NORMALS: no pedal edema Neuro: COMMON NORMALS: patient oriented x3 and moves all extremities S ENSORIUM/ORIENTATION: Yes oriented to person, Yes oriented to place and Yes oriented to time Data 07/03/25 07:45 07/03/25 07:45 A&P Assessment and plan 1. Abnormal stress test: 2. Non-ischemic cardiomyopathy: 3. Essential hypertension: 4. Acute systolic congestive heart failure: 5. Other chest pain: Plan: Will start IV fluids, normal saline at 100 mL/h overnight, recheck creatinine in the morning, possible coronary angiography tomorrow if creatinine less than 1.4. PDMP PDMP Reviewed: Not Reviewed Attestations 2 Medical Necessity Statement*: IV hydration for renal failure prior to coronary angiogram Coding Level of Care Code Acute Code for Chg Fwd Diagnoses Abnormal stress test R94.39 Non-ischemic cardiomyopathy I42.8 Essential hypertension I10 Acute systolic congestive heart failure I50.21 Heart failure chronicity: acute Other chest pain R07.89 Chest pain type: other chest pain
--- NOTE | 2025-07-03 11:47 | PC.NURSE ---
Report given to TRINO Kaur . Patient transported via wheelchair to med-surg 276-2 for pre-hydration for tentative cath reschedule tomorrow AM depending on AM creatinine results.
[2025-07-04] VITALS (9 sets, daily range): BP systolic 129–145; BP diastolic 73–85; PULSE 54–84; RESP 13–20; TEMP 36.7–36.8; O2SAT 95–98
[2025-07-04 04:38] LABS: Anion Gap 14.3 (5-19); Blood Urea Nitrogen 19 mg/dL (8-23); Calcium 9.0 mg/dL (8.5-10.5); Carbon Dioxide 23 mmol/L (22-29); Chloride 107 mmol/L (98-107); Creatinine Clr Calc Pharmacy 65.1835; Glucose 112 mg/dL (65-115); Osmolality Calculated 293 mOsm/kg (285-295); Potassium 4.3 mmol/L (3.5-5.1); Sodium 140 mmol/L (136-145)
--- NOTE | 2025-07-04 06:59 | XACV_ITS ---
Exam Room: [facility] Ht: 183 cm Wt: 98 kg BSA: 2.26 m2 Gender: Male : 1955 Any Known Allergies: No known allergies Exam Priority: Routine Procedure(s): Procedure Description: Diagnostic procedure Procedure Description: Left Heart Catheterization Procedure Description: Coronary Angiography GILBERTOMalachi Menon; Diagnostic Cath Status: Elective Diagnostic Findings * No disease noted in the Left Main, Left Anterior Descending, Right, or Circumflex coronary arteries. * Coronary angiography shows right dominance. Conclusions 1. Indication: Abnormal stress test shortness of breath chest pain suggestive of angina#1 Left main: Normal #2 LAD is free of disease without significant stenosis #3 Left circumflex is free of disease without significant stenosis #4 RCA is free of disease without significant stenosis it is a dominant vessel. 2. No disease noted in the Left Main, Left Anterior Descending, Right, or Circumflex coronary arteries. Recommendations * Continue current medical management and risk factor modification. Diagnostic RX Recommendation: medical therapy and/or counseling Pressures Phase:Rest AO : 117 / 74 ( 92 ) @ 10:56:00 AM 124 / 75 ( 95 ) @ 10:56:00 AM LV : 136 / -10 / 9 @ 10:56:00 AM 135 / -11 / 9 @ 10:56:00 AM Valves Phase:DefaultPhase AV : 5.0 @ 10:09:58 AM AV Mean Gradient: 6.0 @ 10:09:58 AM Clinical Evaluation EBL: 5mL-10mL Procedural Details Procedure Consent Obtained. Pre-Procedure Time Out. Identified patient by full name and date of as verbalized by the patient/guarantor. Does the consent match the physician's order: Yes. Accurate & Complete Informed Consent: Yes. Inpatient/Outpatient History & Physical on Chart: Yes. If H&P is completed, is and addenduem needed: No. Visualize and Verify Site with Patient/Guarantor: N/A. Relevant Radiology Images available: Yes. The risks, benefits, and alternatives of sedation and/or procedure were discussed by physician. The patient agrees to continue. Procedure started. [facility] Clinical Fraility Score: 3: Managing Well. Casino Floorperson Indications: Worsening Angina/Unstable Angina/Abnormal stress test /Heart failure. Chest Pain Symptom Assessment: Typical Angina Symptoms. Cardiovascular Instability: No. Correct patient, site and procedure confirmed by cath team. PERRLA. Strong, equal hand avionics systems technician bilaterally. Lungs clear x 5 lobes. IV Site on Arrival: 20 gauge in the right anticubital. IV Fluids: 0.9% NaCl at KVO. 500 mL infused prior to mini lab operator. Pre Procedural Pulses: bilateral radial was 2+. Pre Procedural Pulses: right dorsalis pedis was Doppled. Pre Procedural Pulses: left dorsalis pedis was 3+. Pre Procedural Pulses: right posterior tibial was 1+. Pre Procedural Pulses: left posterior tibial was Doppled. Oxygen started at 2liters/min via nasal canula. right groin was prepped with chloroprep then draped in the usual sterile fashion. right radial was prepped with chloroprep then draped in the usual sterile fashion. Physician notified. Baseline sample Acquired. HR: 56 BPM. Patient's family in the mini lab operator waiting room. Dr. Menon will update at the completion of the procedure. Equipment: 6F - Radial. Cardiac Cath Pack. ACIST Manifold Kit Model BT 2000. Heparinized Saline (2 units/mL), 1000 mL bag. Physician arrived. Physician scrubbed in. Immediate Pre-Procedure Time Out. Correct Patient: Yes; Correct Procedure: Yes; Correct Site: Yes; Correct Patient Position: Yes; Correct Supplies: Yes; Dried Flammable Prep: Yes; Blood Products Available: N/A;. Lidocaine 1% infiltrated to the right radial. Arterial access obtained. A 5 libyan TIG catheter in over the exchange J wire. EDP Sample taken: LV 136/-11,9; HR: 65 BPM; SpO2: 96%. Pullback taken: LV 135/-12,9; AO 117/74(92); Mean: 6mmHg, Peak to Peak: 5mmHg, SEP: 16sec/min; HR: 63 BPM; SpO2: 96%. Multiple views taken of left coronary artery. Catheter redirected to the RCA. Multiple views taken of right coronary artery. Catheter removed over the exchange J wire. A 5 libyan Angled Pig catheter in over wire. Catheter removed over the exchange J wire. Dr. Menon scrubbed out. Vital chart was stopped. A TR Band was successful obtaining hemostatsis at the Right Radial artery insertion site. Post Procedure: Pulses reassessed and unchanged. PERRLA. Strong, equal hand avionics systems technician bilaterally. No VTE prophylaxis required. Medication's Wasted: Lidocaine 1% = 18 mL. Medication's Wasted: Nitro = 49.8 mg. Medication's Wasted: Heparin = 1000 units. Medication's Wasted: Other = Versed 1 mg. Medication's Wasted: Other = Fentanyl 50 mcg. Total IV fluids: 25 mL. Post-op diagnosis: Normal coronaries. Complications: none. Estimated blood loss: 5mL-10mL. Responsiveness - Normal response to verbal stimuli; alert and oriented, PERRLA. Airway - Unaffected, no intervention required; spontaneous ventilation. Circulation: W/N/L, pulses unchanged. Nausea/Vomiting: No. Procedure completed. Patient transferred by wheelchair to 1st floor. Access Site Site: Right Radial artery Sheath Size: 5 Fr Hemostasis Method: TR Band Hemostasis Success: Successful Procedure Medications Start: 9:39 AM Stop: 9:39 AM Medication: Versed Amount: 1 mg Route: I.V. Start: 9:42 AM Stop: 9:42 AM Medication: Aspirin Amount: 81 mg Route: P.O. Start: 9:43 AM Stop: 9:43 AM Medication: Benadryl Amount: 50 mg Route: I.V. Start: 9:52 AM Stop: 9:52 AM Medication: Nitrogylcerin Amount: 200 mcg Route: I.A. Start: 10:03 AM Stop: 10:03 AM Medication: Heparin Amount: 5000 units Route: I.V. Start: 9:49 AM Stop: 9:49 AM Medication: Fentanyl Amount: 50 mcg I, the attending physician, have reviewed and verified all procedure medications. Yes, all medications given per verbal order History/Risk Factors Hypertension: Yes Dyslipidemia: No Peripheral Arterial Disease (PAD): No Myocardial Infarction (MA): No Obesity: No Renal Disease: No Tobacco Use: Never Prior Interventions PCI: No CABG: No Valve Surgery: No Report Signatures Finalized by Dequan Menon MD on 07/15/2025 01:20 PM
--- NOTE | 2025-07-04 09:27 | PC.NURSE ---
patient left the floor for labeler at [id number]
--- NOTE | 2025-07-04 09:38 | W.PM.OPSUD ---
Surgery/Procedure H&P Update DATE OF PROCEDURE: July 04, 2025 DATE H&P PERFORMED: 07/04/25 H&P UPDATE INFORMATION: I have reviewed H&P completed within last 30 days, I have examined patient prior to procedure and No changes to prior documentation PREOP DIAGNOSIS: New onset of heart failure, LV dysfunction PRIMARY INDICATION FOR PROCEDURE: New onset of heart failure LV dysfunction PLANNED PROCEDURE: Operation Date: 07/03/25 08:30 Proposed Procedures p Cardiac Catheterization - C w/wo LV & Coros(Left) - Dequan Menon MD PATIENT REASSESSED PRIOR TO SEDATION, WITH NO CHANGE NOTED: Yes PHYSICAL EXAM: alert, oriented x 3, clear to auscultation bilaterally, regular rate & rhythm and operative site marked AIRWAY EVAL/ANESTHESIA PLAN: ASA II, Risks, benefits & alternatives of sedation and/or procedure discussed and Patient agrees to continue as planned ADDITIONAL INFORMATION: Patient has been explained all risk-benefit and alternative for the procedure. Patient understand 2% risk of stroke major bleed. Patient understand 5% risk of minor bleeding oozing infection hematoma urgent emergent vascular bypass surgery. Patient would like to proceed with it
--- NOTE | 2025-07-04 11:00 | PC.NURSE ---
patient arrived back from ammunition assembly laborer at 1040. Writer and Josh JAMESON assessed patient's right wrist. No hematoma noted on arrival.
--- NOTE | 2025-07-04 13:28 | PC.NURSE ---
Tr band removed at 1327, no hematoma noted.
--- NOTE | 2025-07-04 13:54 | PC.NURSE ---
I was informed by Halley Mendoza CNA and Rocky Waters RN that patient was threatening to leave AMA and wanting to speak with either CORINNE Hooker or Dr. Menon. There was another situation occurring on the floor at the time and Florina had presented to assess that patient, so I asked her to please see patient as well while she was on the unit. She rounded with patient as well as Dr. Menon and patient stated that he was ready to go home. Dr. Menon and Florina explained that his TR Band was removed completely at 1327 and we typically prefer to monitor for at least an hour prior to d/c just to ensure his condition remains stable. He verbalizes understanding. I rounded on patient and inquired about his desire to leave AMA and he states oh it's nothing against you all, I can just do this part at home I think. Patient denies further questions or concerns.
--- NOTE | 2025-07-04 14:40 | PC.NURSE ---
D/c information reviewed with patient including education on s/s of cardiac complications, to leave pressure dressing intact to right wrist for 24 hours then remove. If there are any concerns with incision after removal of dressing, please call Dr. Menon's office and provided the number to patient and his two family members at bedside. I reviewed medication changes including s/s of hypotension and bradycardiac, which patient's daughter verbalized concern as patient becomes bradycardic at times at home. I reviewed current VS with patient and his family and instructed him to obtain BP and HR prior to taking medications and instructed them to call Dr. Villavicencio's or Dr. Menon's office if issues persist. I reviewed d/c appointments with them and they verbalize understanding and deny further questions or concerns at this time. IV removed and meds to beds delivered during d/c conversation.
--- NOTE | 2025-07-04 15:52 | P.DS_ITS ---
<Statement entered by Dequan Menon MD - 07/05/25 22:03> Patient was evaluated and cared for in conjunction with an advanced practice practitioner. I personally examined the patient and reviewed the chart and all pertinent data including imaging, telemetry, and laboratory results. I discussed the patient in detail with the advanced practice practitioner. Please see their note for complete H&P testing result and agreed upon plan of care for the patient. Discharge Providers Date of Admission: 07/03/2025 Date of Discharge: July 04, 2025 Attending Provider at Admission: Dequan Menon MD Attending Provider at Discharge: Dequan Menon MD Primary Care Provider: Rosmery Vargas MD Diagnoses at Discharge Discharge Diagnosis 1. Abnormal stress test: 2. Non-ischemic cardiomyopathy: 3. Essential hypertension: 4. Acute systolic congestive heart failure: 5. Other chest pain: Reason for Visit Reason for Visit: I51.9 Brief History: Curry Ross is a 70 year old male with past medical history of nonischemic cardiomyopathy, recently admitted to the hospital in February with heart failure and pancreatitis. Due to the acute pancreatitis, coronary angiogram was deferred. He underwent echocardiogram and Lexiscan stress test, which was abnormal, with new decrease in LV function down to 40%. He presented today for coronary angiogram was found to be in renal failure, creatinine 1.8, admitted to the hospital for IV hydration. Once he has had adequate hydration with IV fluids will recheck creatinine and plan for coronary angiogram in 1 to 2 days. Hospital Course Hospital Course Creatinine had improved to 1.3 this morning and he underwent coronary angiogram which revealed no significant coronary stenosis. He has nonischemic cardiomyopathy will start guideline directed medical therapy with lisinopril 2.5 mg daily and metoprolol succinate 12.5 mg daily. No complications with right radial cath site. Follow-up in the cardiology clinic in 2 months. Physical Exam Const: COMMON NORMALS: no acute distress and patient oriented x3 GENERAL APPEARANCE: cooperative ORIENTATION/CONSCIOUSNESS: Yes awake, Yes oriented to person, Yes oriented to place and Yes oriented to time Chest: COMMONS NORMALS: normal inspection of the chest and normal palpation of entire chest wall CHEST: Yes Symmetrical chest wall rise Resp: COMMON NORMALS: normal respiratory effort, No retractions, No use of accessory muscles and clear to auscultation bilaterally AUSCULTATION: clear to auscultation bilaterally Cardio: COMMON NORMALS: regular rate, regular rhythm, S1 normal heart sound present, S2 normal heart sound present, No gallops present (Cardio), No clicks present (Cardio), No murmurs present (Cardio) and No rub (Cardio) RATE: regular rate RHYTHM: regular rhythm HEART SOUNDS: S1 normal heart sound present and S2 normal heart sound present PERIPHERAL PULSES: radial pulses present positive right 2+ and femoral pulses present positive right 2+ Neuro: COMMON NORMALS: patient oriented x3 and moves all extremities SENSORIUM/ORIENTATION: Yes oriented to person, Yes oriented to place and Yes oriented to time Skin: WOUNDS: Yes surgical site (no hematoma palpable) Details: no odor Discharge Data Studies Completed and Pending Pending at discharge Category Date Time Status [employer] request for service Routine Exams 07/04/25 06:59 Taken Laboratory Results WBC 7.29 10^3/uL (3.29-11.43) 07/03/25 07:45 RBC 4.94 10^6/uL (3.85-5.65) 07/03/25 07:45 Hgb 15.90 g/dL (11.27-16.99) 07/03/25 07:45 Hct 47.0 % (37-53) 07/03/25 07:45 MCV 95.1 fl (82-101) 07/03/25 07:45 MCH 32.2 pg (27-33) 07/03/25 07:45 MCHC 33.8 g/dL (30-55) 07/03/25 07:45 RDW 12.1 % (12.1-15.1) 07/03/25 07:45 Plt Count 174 10^3/cmm (157-399) 07/03/25 07:45 MPV 10.3 fL (7.4-10.4) 07/03/25 07:45 Neut % (Auto) 58.2 % 07/03/25 07:45 Lymph % (Auto) 29.9 % 07/03/25 07:45 Milam % (Auto) 10.3 % 07/03/25 07:45 Eos % (Auto) 1.1 % 07/03/25 07:45 Baso % (Auto) 0.4 % 07/03/25 07:45 Neut # (Auto) 4.24 10^3/uL (1.8-7.7) 07/03/25 07:45 Lymph # (Auto) 2.2 10^3/uL (0.8-4.8) 07/03/25 07:45 Milam # (Auto) 0.8 10^3/uL (0.2-0.9) 07/03/25 07:45 Eos # (Auto) 0.1 10^3/uL (0.0-0.8) 07/03/25 07:45 Baso # (Auto) 0.0 10^3/uL (0.0-0.1) 07/03/25 07:45 Nucleated RBC % (auto) 0 % 07/03/25 07:45 Nucleated RBCs # 0.0 /100WBC 07/03/25 07:45 Sodium 140 mmol/L (136-145) 07/04/25 04:08 Potassium 4.3 mmol/L (3.5-5.1) 07/04/25 04:08 Chloride 107 mmol/L (98-107) 07/04/25 04:08 Carbon Dioxide 23 mmol/L (22-29) 07/04/25 04:08 Anion Gap 14.3 (5-19) 07/04/25 04:08 BUN 19 mg/dL (8-23) 07/04/25 04:08 Creatinine 1.3 mg/dL (0.7-1.2) H 07/04/25 04:08 GFR Calculation 54.7 mL/min (90-130) L 07/04/25 04:08 Glucose 112 mg/dL (65-115) 07/04/25 04:08 Calculated Osmolality 293 mOsm/kg (285-295) 07/04/25 04:08 Calcium 9.0 mg/dL (8.5-10.5) 07/04/25 04:08 Vitals Last Vital Signs Temp 98.2 F 07/04/25 07:43 Pulse 84 07/04/25 14:30 Resp 17 07/04/25 14:30 BP 145/85 07/04/25 14:30 Pulse Ox 98 07/04/25 14:30 O2 Del Method Room Air 07/04/25 10:42 Discharge Plan Discharge Patient Disposition: Home Prescriptions: New metoprolol succinate 25 mg Tablet Extended Release 24 Hr 12.5 mg PO DAILY Qty: 90 1RF lisinopril 2.5 mg Tablet 2.5 mg PO DAILY Qty: 90 2RF Continued pantoprazole 40 mg tablet,delayed release (DR/EC) 40 mg PO QAM Qty: 90 1RF aspirin 81 mg Tablet,Delayed Release (Dr/Ec) 81 mg PO QAM timolol maleate 0.5 % drops 1 drp ophthalmic (eye) BID Discharge Order = DC NOW: Discharge Order (Routine); Ordered 07/04/25 Ordered By: Dequan Menon Referrals: Dequan Menon MD [Physician, Cardiology] - 11/28/25 3:45 pm Rosmery Vargas MD [Primary Care Provider, Family Practice] - 07/10/25 8:30 am Diet: Cardiac Activity: Increase activity as tolerated Patient Instructions: Metoprolol (By mouth), Lisinopril (By mouth) (Prinivil, Zestril), Hypertension (DC), Coronary Angioplasty (DC), CHF Stoplight, Chest Pain Stoplight, Post Angiogram Home Care Instructions Activity Restrictions/Additional Instructions: No lifting over 5 pounds with right arm for 4 days. Print Language: [place] Discharge Date/Time: 07/04/25 14:30 Discharge Attestations Time Spent in Discharge Care*: less than 30 min Status at Discharge: Cognitive status at discharge: cognitively intact , Behavioral status at discharge: cooperative , Quality Metrics Clinical Quality Measures [ No reported AMI, CVA or VTE this stay] Coding Level of Care Code Acute Code for [facility] Fwd Diagnoses Abnormal stress test R94.39 Non-ischemic cardiomyopathy I42.8 Essential hypertension I10 Acute systolic congestive heart failure I50.21 Heart failure chronicity: acute Other chest pain R07.89 Chest pain type: other chest pain
--- NOTE | 2025-07-04 18:58 | PC.NURSE ---
PLEASE SEE VITALS IN CHART CONNECTED TO POST CARDIAC CATH FLOWSHEET.
== END 2025-07-04 14:30 | disposition home or self-care (01) ==
LOC: CCL 07:27 → MEDSURG 13:56 → CSU 22:41
PROVIDERS: PCP Family Medicine; Visit Provider Internal Medicine Cardiovascular Disease
DX: R07.9 Chest pain, unspecified (principal); R94.39 Abnormal result of other cardiovascular function study; I42.8 Other cardiomyopathies; I50.21 Acute systolic (congestive) heart failure; I11.0 Hypertensive heart disease with heart failure; K21.9 Gastro-esophageal reflux disease without esophagitis; Z79.82 Long term (current) use of aspirin
CPT/HCPCS: 36415; 80048; 85025; 93458; 99152; C1769; C1887; C1894; J1200; J1644; J2250; J3010; J3490; J7030; J9999; Q0163; Q9967

== ENCOUNTER → 2025-07-10 09:14 | Outpatient (BNVA) | payer MEDICARE, SELFPAY | PROVIDERS: PCP Family Medicine; Visit Provider Family Medicine | DX: I12.9 Hypertensive chronic kidney disease with stage 1 through stage 4 chronic kidney disease, or unspecified chronic kidney disease (principal); N18.31 Chronic kidney disease, stage 3a; I42.8 Other cardiomyopathies | CPT/HCPCS: 80048 ==

== ENCOUNTER → 2025-08-14 09:17 | Outpatient (BNVA) | payer MEDICARE, SELFPAY | PROVIDERS: PCP Family Medicine; Visit Provider Family Medicine | DX: Z11.59 Encounter for screening for other viral diseases (principal); Z12.5 Encounter for screening for malignant neoplasm of prostate; N18.31 Chronic kidney disease, stage 3a; I12.9 Hypertensive chronic kidney disease with stage 1 through stage 4 chronic kidney disease, or unspecified chronic kidney disease | CPT/HCPCS: 80048; 86803; G0103 ==